=== PATIENT | female | born 1940 | race Caucasian/White ===

== ENCOUNTER 2021-06-26 17:05 | Inpatient (IN) ==
[2021-06-26] MEDS ORDERED: ALBUT/IPRATROP 3MG/0.5MG NEB 3 ML VIAL NEB ONE (17:53)
[2021-06-26] MEDS ORDERED: methylPREDNISolone 125 MG/2 ML VIAL IV STA (17:53)
--- NOTE | 2021-06-26 17:56 | Emergency Department Note ---
Impression & Plan Acute respiratory distress, Pulmonary edema, Anemia ED Provider Note NAME: CAIO LLANOS AGE: 81 SEX: F : 1940 ARRIVES VIA: Walk-In INFORMANT: Patient, ED PROVIDER(S): Ashu Price DO CHIEF COMPLAINT: Shortness of breath HPI: The patient is an 81-year-old female who presented to the emergency department for an evaluation of shortness of breath. The patient arrived with family members. Apparently the patient's been having worsening symptoms for the last 3 to 4 days. The patient has had no nausea or vomiting. The patient has had no chest pain. She did notice worsening shortness of breath especially with exertion. She denies having any orthopnea. The patient does not wear oxygen at home. She denies having any fever. She is had a dry cough. She has a history of COPD and states that she has had similar episodes in the past with COPD. The patient has not seen her family doctor for the symptoms. She states symptoms continued to worsen so she presented to the emergency department with her family member for further evaluation. The patient states that she has been pliant with all of her out patient medication. The patient was immunized against COVID-19. ROS: See above HPI for pertinent positives & negatives. A total of 10 systems reviewed and were otherwise negative. PAST MEDICAL HISTORY: See Below PAST SURGICAL HISTORY: See Below FAMILY HISTORY: See Below SOCIAL HISTORY: See Below HOME MEDICATIONS: See Below ALLERGIES: See Below VITALS: See Below PHYSICAL EXAMINATION: GENERAL: The patient is a thin alert. The patient is very anxious appearing. EYES: The conjunctivae are clear. The pupils are round and reactive. EARS, NOSE, MOUTH AND THROAT: The nose is without any evidence of any deformity. NECK: The neck is nontender and supple. RESPIRATORY: Diminished breath sounds are noted throughout. There was significant tachypnea and conversational dyspnea. CARDIOVASCULAR: Irregular heart sounds were noted. There was no evident murmur. GASTROINTESTINAL: The abdomen is soft. Abdomen is nontender. MUSCULOSKELETAL/EXTREMITIES: There is no evidence of gross deformity full range of motion is noted in the hips and shoulders. SKIN: Pedal edema was noted bilaterally. Skin was warm and dry. NEUROLOGIC: Patient is awake alert and oriented x3. MEDICAL DECISION MAKING: The patient is an 81-year-old female who presented to the emergency department for an evaluation of shortness of breath. The patient was found to have significant tachypnea as well as conversational dyspnea. She has a history of COPD. Initially she was treated with bronchodilator therapy and BiPAP. She did not tolerate BiPAP well. She was found to have significant anemia and signs of pulmonary edema on chest x-ray. She was treated with Lasix as well as blood transfusion. I did consent the patient for blood transfusion myself. I discus sed the patient's laboratory and radiographic studies with her. She was feeling much better on subsequent reevaluation. [facility] have agreed to evaluate the patient in the emergency department for further management and disposition. Triage Nursing notes reviewed. Prior medical records reviewed Vital Signs: reviewed and remarkable for tachypnea and tachycardia. Differential diagnosis: Reactive airway disease, pneumonia, pneumothorax, COPD, CHF, infections, cardiac ischemia, pulmonary embolism, musculoskeletal, gastrointestinal, as well as other pathologies. ER treatment provided: See below Diagnostics interpreted by me: ECG: EKG was obtained in the emergency department. My interpretation is atrial fibrillation at 88 bpm. There was no PVCs noted. Left bundle branch block pattern was noted. This was compared to a tracing from December 31, 1996. The atrial fibrillation as well as a left bundle were new compared to earlier tracing. Cardiac Monitoring: An order was placed for continuous cardiac monitoring. The monitor shows a rate of 92 bpm with atrial fibrillation rhythm. Laboratory studies: As stated above and show below. Imaging studies: See below Consultation(s): 1924: I discussed this case with Dr. Tanner who [facility] ED COURSE: Procedures: none PDMP:reviewed and no issues Critical Care: I have personally spent greater than 55 minutes of critical care time in the direct management of this patient. This includes bedside care, interpretation of diagnostic studies, and testing, discussion with consultants, patient, and family members, and other required patient management activities. This 55 minutes is in excess of all separately billable procedures. Past Med/Surg History Medical History Atrial fibrillation Breast cancer COPD (chronic obstructive pulmonary disease) Surgical History History of abdominal hysterectomy History of cholecystectomy History of lumbar surgery History of mastectomy Social History Smoking Status: Never smoker Preferred Language: Monegasque Feels Safe at Home: Yes Allergies Allergies Allergy/AdvReac Type Severity Reaction Status Date / Time latex Allergy Rash Verified 06/26/21 19:53 Penicillins Allergy Hives Verified 06/26/21 19:53 shellfish derived Allergy Anaphylaxis Verified 06/26/21 19:53 Sulfa (Sulfonamide Allergy Hives Verified 06/26/21 19:53 Antibiotics) SMOKE Allergy THROAT Uncoded 06/26/21 19:53 CLOSES Home Meds Home Medications Medication Instructions Recorded Confirmed acetaminophen 325 mg tablet 650 mg PO BID 06/26/21 06/26/21 (Tylenol) albuterol sulfate 2.5 mg INHALATION Q4H PRN 06/26/21 06/26/21 albuterol sulfate 90 mcg/actuation 2 puff INHALATION Q6 PRN 06/26/21 06/26/21 aerosol inhaler aspirin 81 mg tablet,delayed 81 mg PO DAILY 06/26/21 06/26/21 release calcium carbonate 600 mg(1,500 1 tab PO BID 06/26/21 06/26/21 mg)-vitamin D3 800 unit chewable tablet (Caltrate 600 plus D) cholecalciferol (vitamin D3) 50 50 mcg PO DAILY 06/26/21 06/26/21 mcg (2,000 unit) tablet (Vitamin D3) cyanocobalamin (vitamin B-12) 1,000 mcg PO DAILY 06/26/21 06/26/21 1,000 mcg tablet (Vitamin B-12) furosemide 20 mg tablet 20 mg PO BID 06/26/21 06/26/21 omeprazole 40 mg capsule,delayed 40 mg PO BID 06/26/21 06/26/21 release potassium chloride 20 mEq 20 meq PO DAILY 06/26/21 06/26/21 tablet,extended release(part/cryst) spironolactone 25 mg tablet 25 mg PO DAILY 06/26/21 06/26/21 torsemide 100 mg tablet 100 mg PO DAILY PRN 06/26/21 06/26/21 verapamil 180 mg 24 hr 180 mg PO BID 06/26/21 06/26/21 capsule,extended release warfarin 3 mg tablet 1.5 - 3 mg PO UD 06/26/21 06/26/21 Results & Data (ED) Vital Signs Vital Signs - 24 hr 06/26/21 17:26 06/26/21 18:09 06/26/21 18:10 Temperature 36.4 C L Temperature Source Temporal Artery Scan Pulse Rate 101 H 94 H Pulse Rate [Right Finger] 95 H Pulse Rate from SpO2 Sensor Respiratory Rate 36 H 31 H 31 H Respiratory Effort / Characteristics Accessory Muscle Use Labored Spontaneous Labored Short of Breath Spontaneous Labored Short of Breath Respiratory Pattern Tachypnea Blood Pressure 110/56 L Blood Pressure [Left Arm] Blood Pressure Mean 74 Blood Pressure Mean [Left Arm] Blood Pressure Position Sitting Pulse Oximetry 97 94 94 Oxygen Delivery Method Room Air BiPAP Oxygen Flow Rate Fraction of Inspired Oxygen 21 21 Sepsis Recent Fever Within 48 Hours No Sepsis New/Unexplained Change in Mental Status N/A Sepsis Action Taken by Nursing No Action Required 06/26/21 18:12 06/26/21 18:20 06/26/21 18:27 Temperature Temperature Source Pulse Rate 92 H 93 H Pulse Rate [Right Finger] 103 H Pulse Rate from SpO2 Sensor 94 H 97 H Respiratory Rate 34 H 32 H 22 Respiratory Effort / Characteristics Respiratory Pattern Blood Pressure Blood Pressure [Left Arm] 121/61 Blood Pressure Mean Blood Pressure Mean [Left Arm] 81 Blood Pressure Position Pulse Oximetry 100 100 100 Oxygen Delivery Method Nebulizer Oxygen Flow Rate Fraction of Inspired Oxygen Sepsis Recent Fever Within 48 Hours Sepsis New/Unexplained Change in Mental Status Sepsis Action Taken by Nursing 06/26/21 18:30 06/26/21 19:00 06/26/21 19:03 Temperature Temperature Source Pulse Rate 102 H 89 Pulse Rate [Right Finger] Pulse Rate from SpO2 Sensor 101 H 90 Respiratory Rate 31 H 26 H Respiratory Effort / Characteristics Respiratory Pattern Blood Pressure 129/85 136/76 Blood Pressure [Left Arm] Blood Pressure Mean 99 96 Blood Pressure Mean [Left Arm] Blood Pressure Position Pulse Oximetry 98 100 100 Oxygen Delivery Method Room Air Room Air Oxygen Flow Rate Fraction of Inspired Oxygen Sepsis Recent Fever Within 48 Hours Sepsis New/Unexplained Change in Mental Status Sepsis Action Taken by Nursing 06/26/21 19:30 06/26/21 19:53 06/26/21 20:00 Temperature Temperature Source Pulse Rate 89 86 Pulse Rate [Right Finger] Pulse Rate from SpO2 Sensor 88 88 Respiratory Rate 25 H 22 34 H Respiratory Effort / Characteristics Short of Breath Short of Breath Respiratory Pattern Blood Pressure 134/79 129/59 L Blood Pressure [Left Arm] Blood Pressure Mean 97 82 Blood Pressure Mean [Left Arm] Blood Pressure Position Pulse Oximetry 100 97 95 Oxygen Delivery Method Nasal Cannula Nasal Cannula Oxygen Flow Rate 2 2 Fraction of Inspired Oxygen Sepsis Recent Fever Within 48 Hours Sepsis New/Unexplained Change in Mental Status Sepsis Action Taken by Nursing 06/26/21 20:30 06/26/21 21:00 06/26/21 21:30 Temperature Temperature Source Pulse Rate 96 H 86 92 H Pulse Rate [Right Finger] Pulse Rate from SpO2 Sensor 95 H 85 88 Respiratory Rate 22 21 23 Respiratory Effort / Characteristics SOB on Exertion Respiratory Pattern Blood Pressure 108/59 L 125/53 L 115/51 L Blood Pressure [Left Arm] Blood Pressure Mean 75 77 72 Blood Pressure Mean [Left Arm] Blood Pressure Position Pulse Oximetry 97 95 96 Oxygen Delivery Method Nasal Cannula Oxygen Flow Rate 2 Fraction of Inspired Oxygen Sepsis Recent Fever Within 48 Hours Sepsis New/Unexplained Change in Mental Status Sepsis Action Taken by [facility] Medications Current Medication List: was personally reviewed by me Laboratory Data Attestation: I reviewed the patient's lab results. Result diagrams: 06/26/21 18:14 06/26/21 18:14 Lab Results 06/26/21 06/26/21 06/26/21 Range/Units 18:00 18:00 18:14 WBC 11.69 H (4.8-10.8) K/uL RBC 3.26 L (4.2-5.4) M/uL Hgb 6.8 L* (12.0-16.0) g/dL Hct 23.8 L (37-47) % MCV 73.0 L (80-100) fL MCH 20.9 L (25-34) pg MCHC 28.6 L (32-36) g/dL RDW Std Deviation 47.1 H (36.4-46.3) fL RDW Coeff of Valerie 17.5 H (11.5-14.5) % Plt Count 435 H (130-400) K/uL MPV 10.4 (7.4-10.4) fL Immature Gran % (Auto) 0.3 % Neut % (Auto) 77.8 % Lymph % (Auto) 10.9 % [place] % (Auto) 10.7 % Eos % (Auto) 0.1 % Baso % (Auto) 0.2 % Neut # (Auto) 9.10 H (1.4-6.5) K/uL Lymph # (Auto) 1.28 (1.2-3.4) K/uL [place] # (Auto) 1.25 H (0.11-0.59) K/uL Eos # (Auto) 0.01 (0-0.5) K/uL Baso # (Auto) 0.02 (0-0.2) K/uL Immature Gran # (Auto) 0.03 H (0.00-0.02) K/uL Polychromasia 1+ Hypochromasia Present Poikilocytosis Present PT (9.0-12.0) Seconds INR (0.9-1.1) APTT (21.0-31.0) Seconds PTT Ratio VBG pH (7.36-7.41) VBG pCO2 (38-50) mmHg VBG pO2 mmHg VBG HCO3 mmol/L VBG O2 Saturation % VBG Base Excess mEq/L Barometric Pressure mm/Hg Sodium (136-145) mmol/L Potassium (3.5-5.1) mmol/L Chloride (98-107) mmol/L Carbon Dioxide (21-32) mmol/L Anion Gap (3-11) BUN (7-18) mg/dl Creatinine (0.6-1.2) mg/dl Est Cr Clr Drug Dosing Est GFR ( Amer) ml/min Est GFR (Non-Af Amer) ml/min BUN/Creatinine Ratio (10-20) Glucose (70-99) mg/dl Lactate (0.4-2.0) mmol/L Calcium (8.5-10.1) mg/dl Magnesium (1.8-2.4) mg/dl Total Bilirubin (0.2-1) mg/dl AST (15-37) U/L ALT (12-78) U/L Alkaline Phosphatase (45-117) U/L Troponin I (0-0.045) ng/ml NT-Pro-B Natriuret Pep (0-1800) pg/ml Total Protein (6.4-8.2) gm/dl Albumin (3.4-5.0) gm/dl Globulin (2.5-4.0) gm/dl Albumin/Globulin Ratio (0.9-2) Procalcitonin (0-0.5) ng/ml Urine Color Urine Appearance (Clear) Urine pH (4.5-7.5) Ur Specific [place] (1.000-1.030) Urine Protein (Negative) Urine Glucose (UA) (Negative) Urine Ketones (Negative) Urine Blood (Negative) Urine Nitrite (Negative) Urine Bilirubin (Negative) Urine Urobilinogen (Negative) Ur Leukocyte Esterase (Negative) Urine WBC (Auto) (0-5) /hpf Urine RBC (Auto) (0-4) /hpf U Hyaline Cast (Auto) (0-5) /lpf U Epithel Cells (Auto) (0-5) /lpf Urine Bacteria (Auto) (Negative) Adenovirus (PCR) Not Detected (NotDetected) B. pertussis DNA (PCR) Not Detected (NotDetected) B.parapertussis DNA PCR Not Detected (NotDetected) C. pneumoniae DNA (PCR) Not Detected (NotDetected) Coronavirus OC43 (PCR) Not Detected (NotDetected) Coronavirus HKU1 (PCR) Not Detected (NotDetected) Coronavirus 229E (PCR) Not Detected (NotDetected) COVID-[address] Eval [address] RESPNP at [facility] SARS-CoV-2 (PCR) Not Detected (NotDetected) Coronavirus NL63 (PCR) Not Detected (NotDetected) Human Metapneumovir PCR Not Detected (NotDetected) Influenza Type A (PCR) Not Detected (NotDetected) Influenza Type B (PCR) Not Detected (NotDetected) M. pneumoniae (PCR) Not Detected (NotDetected) Parainfluenza 1 (PCR) Not Detected (NotDetected) Parainfluenza 2 (PCR) Not Detected (NotDetected) Parainfluenza 3 (PCR) Not Detected (NotDetected) Parainfluenza 4 (PCR) Not Detected (NotDetected) RSV (PCR) Not Detected (NotDetected) Entero/Rhino (PCR) Not Detected (NotDetected) Blood Type Blood Type Recheck Antibody Screen Crossmatch 06/26/21 06/26/21 06/26/21 Range/Units 18:14 18:14 18:14 WBC (4.8-10.8) K/uL RBC (4.2-5.4) M/uL Hgb (12.0-16.0) g/dL Hct (37-47) % MCV (80-100) fL MCH (25-34) pg MCHC (32-36) g/dL RDW Std Deviation (36.4-46.3) fL RDW Coeff of Valerie (11.5-14.5) % Plt Count (130-400) K/uL MPV (7.4-10.4) fL Immature Gran % (Auto) % Neut % (Auto) % Lymph % (Auto) % [place] % (Auto) % Eos % (Auto) % Baso % (Auto) % Neut # (Auto) (1.4-6.5) K/uL Lymph # (Auto) (1.2-3.4) K/uL [place] # (Auto) (0.11-0.59) K/uL Eos # (Auto) (0-0.5) K/uL Baso # (Auto) (0-0.2) K/uL Immature Gran # (Auto) (0.00-0.02) K/uL Polychromasia Hypochromasia Poikilocytosis PT 31.2 H (9.0-12.0) Seconds INR 3.4 H (0.9-1.1) APTT 41.8 H (21.0-31.0) Seconds PTT Ratio 1.6 VBG pH (7.36-7.41) VBG pCO2 (38-50) mmHg VBG pO2 mmHg VBG HCO3 mmol/L VBG O2 Saturation % VBG Base Excess mEq/L Barometric Pressure mm/Hg Sodium 130 L (136-145) mmol/L Potassium 4.9 (3.5-5.1) mmol/L Chloride 97 L (98-107) mmol/L Carbon Dioxide 25 (21-32) mmol/L Anion Gap 8.0 (3-11) BUN 15 (7-18) mg/dl Creatinine 0.97 (0.6-1.2) mg/dl Est Cr Clr Drug Dosing Not Reportable Est GFR ( Amer) 62.6 ml/min Est GFR (Non-Af Amer) 54.0 ml/min BUN/Creatinine Ratio 15.0 (10-20) Glucose 123 H (70-99) mg/dl Lactate 2.1 H* (0.4-2.0) mmol/L Calcium 8.7 (8.5-10.1) mg/dl Magnesium 2.4 (1.8-2.4) mg/dl Total Bilirubin 0.4 (0.2-1) mg/dl AST 12 L (15-37) U/L ALT 14 (12-78) U/L Alkaline Phosphatase 55 (45-117) U/L Troponin I < 0.015 (0-0.045) ng/ml NT-Pro-B Natriuret Pep 03681 H (0-1800) pg/ml Total Protein 7.0 (6.4-8.2) gm/dl Albumin 3.2 L (3.4-5.0) gm/dl Globulin 3.8 (2.5-4.0) gm/dl Albumin/Globulin Ratio 0.8 L (0.9-2) Procalcitonin (0-0.5) ng/ml Urine Color Urine Appearance (Clear) Urine pH (4.5-7.5) Ur Specific [place] (1.000-1.030) Urine Protein (Negative) Urine Glucose (UA) (Negative) Urine Ketones (Negative) Urine Blood (Negative) Urine Nitrite (Negative) Urine Bilirubin (Negative) Urine Urobilinogen (Negative) Ur Leukocyte Esterase (Negative) Urine WBC (Auto) (0-5) /hpf Urine RBC (Auto) (0-4) /hpf U Hyaline Cast (Auto) (0-5) /lpf U Epithel Cells (Auto) (0-5) /lpf Urine Bacteria (Auto) (Negative) Adenovirus (PCR) (NotDetected) B. pertussis DNA (PCR) (NotDetected) B.parapertussis DNA PCR (NotDetected) C. pneumoniae DNA (PCR) (NotDetected) Coronavirus OC43 (PCR) (NotDetected) Coronavirus HKU1 (PCR) (NotDetected) Coronavirus 229E (PCR) (NotDetected) COVID-19 Eval Order SARS-CoV-2 (PCR) (NotDetected) Coronavirus NL63 (PCR) (NotDetected) Human Metapneumovir PCR (NotDetected) Influenza Type A (PCR) (NotDetected) Influenza Type B (PCR) (NotDetected) M. pneumoniae (PCR) (NotDetected) Parainfluenza 1 (PCR) (NotDetected) Parainfluenza 2 (PCR) (NotDetected) Parainfluenza 3 (PCR) (NotDetected) Parainfluenza 4 (PCR) (NotDetected) RSV (PCR) (NotDetected) Entero/Rhino (PCR) (NotDetected) Blood Type Blood Type Recheck Antibody Screen Crossmatch 06/26/21 06/26/21 06/26/21 Range/Units 18:14 18:14 18:52 WBC (4.8-10.8) K/uL RBC (4.2-5.4) M/uL Hgb (12.0-16.0) g/dL Hct (37-47) % MCV (80-100) fL MCH (25-34) pg MCHC (32-36) g/dL RDW Std Deviation (36.4-46.3) fL RDW Coeff of Valerie (11.5-14.5) % Plt Count (130-400) K/uL MPV (7.4-10.4) fL Immature Gran % (Auto) % Neut % (Auto) % Lymph % (Auto) % [place] % (Auto) % Eos % (Auto) % Baso % (Auto) % Neut # (Auto) (1.4-6.5) K/uL Lymph # (Auto) (1.2-3.4) K/uL [place] # (Auto) (0.11-0.59) K/uL Eos # (Auto) (0-0.5) K/uL Baso # (Auto) (0-0.2) K/uL Immature Gran # (Auto) (0.00-0.02) K/uL Polychromasia Hypochromasia Poikilocytosis PT (9.0-12.0) Seconds INR (0.9-1.1) APTT (21.0-31.0) Seconds PTT Ratio VBG pH 7.37 (7.36-7.41) VBG pCO2 42 (38-50) mmHg VBG pO2 69 mmHg VBG HCO3 24 mmol/L VBG O2 Saturation 91.3 % VBG Base Excess -1.5 mEq/L Barometric Pressure 736.7 mm/Hg Sodium (136-145) mmol/L Potassium (3.5-5.1) mmol/L Chloride (98-107) mmol/L Carbon Dioxide (21-32) mmol/L Anion Gap (3-11) BUN (7-18) mg/dl Creatinine (0.6-1.2) mg/dl Est Cr Clr Drug Dosing Est GFR ( Amer) ml/min Est GFR (Non-Af Amer) ml/min BUN/Creatinine Ratio (10-20) Glucose (70-99) mg/dl Lactate (0.4-2.0) mmol/L Calcium (8.5-10.1) mg/dl Magnesium (1.8-2.4) mg/dl Total Bilirubin (0.2-1) mg/dl AST (15-37) U/L ALT (12-78) U/L Alkaline Phosphatase (45-117) U/L Troponin I (0-0.045) ng/ml NT-Pro-B Natriuret Pep (0-1800) pg/ml Total Protein (6.4-8.2) gm/dl Albumin (3.4-5.0) gm/dl Globulin (2.5-4.0) gm/dl Albumin/Globulin Ratio (0.9-2) Procalcitonin 0.07 (0-0.5) ng/ml Urine Color Urine Appearance (Clear) Urine pH (4.5-7.5) Ur Specific [place] (1.000-1.030) Urine Protein (Negative) Urine Glucose (UA) (Negative) Urine Ketones (Negative) Urine Blood (Negative) Urine Nitrite (Negative) Urine Bilirubin (Negative) Urine Urobilinogen (Negative) Ur Leukocyte Esterase (Negative) Urine WBC (Auto) (0-5) /hpf Urine RBC (Auto) (0-4) /hpf U Hyaline Cast (Auto) (0-5) /lpf U Epithel Cells (Auto) (0-5) /lpf Urine Bacteria (Auto) (Negative) Adenovirus (PCR) (NotDetected) B. pertussis DNA (PCR) (NotDetected) B.parapertussis DNA PCR (NotDetected) C. pneumoniae DNA (PCR) (NotDetected) Coronavirus OC43 (PCR) (NotDetected) Coronavirus HKU1 (PCR) (NotDetected) Coronavirus 229E (PCR) (NotDetected) COVID-19 Eval Order SARS-CoV-2 (PCR) (NotDetected) Coronavirus NL63 (PCR) (NotDetected) Human Metapneumovir PCR (NotDetected) Influenza Type A (PCR) (NotDetected) Influenza Type B (PCR) (NotDetected) M. pneumoniae (PCR) (NotDetected) Parainfluenza 1 (PCR) (NotDetected) Parainfluenza 2 (PCR) (NotDetected) Parainfluenza 3 (PCR) (NotDetected) Parainfluenza 4 (PCR) (NotDetected) RSV (PCR) (NotDetected) Entero/Rhino (PCR) (NotDetected) Blood Type O Negative Blood Type Recheck Antibody Screen NEGATIVE Crossmatch See Detail 06/26/21 06/26/21 06/26/21 Range/Units 20:08 20:14 21:30 WBC (4.8-10.8) K/uL RBC (4.2-5.4) M/uL Hgb (12.0-16.0) g/dL Hct (37-47) % MCV (80-100) fL MCH (25-34) pg MCHC (32-36) g/dL RDW Std Deviation (36.4-46.3) fL RDW Coeff of Valerie (11.5-14.5) % Plt Count (130-400) K/uL MPV (7.4-10.4) fL Immature Gran % (Auto) % Neut % (Auto) % Lymph % (Auto) % [place] % (Auto) % Eos % (Auto) % Baso % (Auto) % Neut # (Auto) (1.4-6.5) K/uL Lymph # (Auto) (1.2-3.4) K/uL [place] # (Auto) (0.11-0.59) K/uL Eos # (Auto) (0-0.5) K/uL Baso # (Auto) (0-0.2) K/uL Immature Gran # (Auto) (0.00-0.02) K/uL Polychromasia Hypochromasia Poikilocytosis PT (9.0-12.0) Seconds INR (0.9-1.1) APTT (21.0-31.0) Seconds PTT Ratio VBG pH (7.36-7.41) VBG pCO2 (38-50) mmHg VBG pO2 mmHg VBG HCO3 mmol/L VBG O2 Saturation % VBG Base Excess mEq/L Barometric Pressure mm/Hg Sodium (136-145) mmol/L Potassium (3.5-5.1) mmol/L Chloride (98-107) mmol/L Carbon Dioxide (21-32) mmol/L Anion Gap (3-11) BUN (7-18) mg/dl Creatinine (0.6-1.2) mg/dl Est Cr Clr Drug Dosing Est GFR ( Amer) ml/min Est GFR (Non-Af Amer) ml/min BUN/Creatinine Ratio (10-20) Glucose (70-99) mg/dl Lactate 1.7 (0.4-2.0) mmol/L Calcium (8.5-10.1) mg/dl Magnesium (1.8-2.4) mg/dl Total Bilirubin (0.2-1) mg/dl AST (15-37) U/L ALT (12-78) U/L Alkaline Phosphatase (45-117) U/L Troponin I (0-0.045) ng/ml NT-Pro-B Natriuret Pep (0-1800) pg/ml Total Protein (6.4-8.2) gm/dl Albumin (3.4-5.0) gm/dl Globulin (2.5-4.0) gm/dl Albumin/Globulin Ratio (0.9-2) Procalcitonin (0-0.5) ng/ml Urine Color Yellow Urine Appearance Cloudy A (Clear) Urine pH 5.5 (4.5-7.5) Ur Specific [place] 1.010 (1.000-1.030) Urine Protein Negative (Negative) Urine Glucose (UA) Negative (Negative) Urine Ketones Negative (Negative) Urine Blood Negative (Negative) Urine Nitrite Positive A (Negative) Urine Bilirubin Negative (Negative) Urine Urobilinogen Negative (Negative) Ur Leukocyte Esterase 1+ H (Negative) Urine WBC (Auto) 10-30 H (0-5) /hpf Urine RBC (Auto) 0-4 (0-4) /hpf U Hyaline Cast (Auto) 1-5 (0-5) /lpf U Epithel Cells (Auto) >30 H (0-5) /lpf Urine Bacteria (Auto) 2+ H (Negative) Adenovirus (PCR) (NotDetected) B. pertussis DNA (PCR) (NotDetected) B.parapertussis DNA PCR (NotDetected) C. pneumoniae DNA (PCR) (NotDetected) Coronavirus OC43 (PCR) (NotDetected) Coronavirus HKU1 (PCR) (NotDetected) Coronavirus 229E (PCR) (NotDetected) COVID-19 Eval Order SARS-CoV-2 (PCR) (NotDetected) Coronavirus NL63 (PCR) (NotDetected) Human Metapneumovir PCR (NotDetected) Influenza Type A (PCR) (NotDetected) Influenza Type B (PCR) (NotDetected) M. pneumoniae (PCR) (NotDetected) Parainfluenza 1 (PCR) (NotDetected) Parainfluenza 2 (PCR) (NotDetected) Parainfluenza 3 (PCR) (NotDetected) Parainfluenza 4 (PCR) (NotDetected) RSV (PCR) (NotDetected) Entero/Rhino (PCR) (NotDetected) Blood Type Blood Type Recheck O Negative Antibody Screen Crossmatch Administered Medications Discontinued Medications Albuterol (Albut/Ipratrop 3mg/0.5mg Neb 3 Ml Vial) 12 ml NEB ONE ONE Stop: 06/26/21 17:54 Last Admin: 06/26/21 18:08 Dose: 12 ml Documented by: [id number] Furosemide (Furosemide 40 Mg/4 Ml Vial) 40 mg IV NOW STA Stop: 06/26/21 19:08 Last Admin: 06/26/21 19:20 Dose: 40 mg Documented by: [id number] Methylprednisolone (Methylprednisolone 125 Mg/2 Ml Vial) 125 mg IV NOW STA Stop: 06/26/21 17:54 Last Admin: 06/26/21 19:20 Dose: 125 mg Documented by: [id number] Imaging Data Radiologist's Impression: Chest X-Ray 06/26/21 17:53 SINGLE VIEW CHEST CLINICAL HISTORY: Sepsis . FINDINGS: An AP, portable, upright chest radiograph is obtained. No prior studies are available for comparison at the time of dictation. The heart is enlarged noting atherosclerotic calcification of the thoracic aorta. There is pulmonary vascular congestion. Bilateral airspace opacities are seen throughout both lung. Small pleural effusions are suspected with bibasilar scarring/atelectasis. No pneumothorax is seen. The skeletal structures are osteopenic. The bony thorax is grossly intact. Surgical clips are noted in the right axilla. IMPRESSION: 1. Cardiomegaly with evidence of congestive failure. 2. Bilateral airspace opacities likely represent pulmonary edema. Correlate clinically for evidence of a superimposed infectious/inflammatory pneumonitis. Radiographic follow-up to resolution is recommended. 3. Suspect small pleural effusions. ACT 112: Negative or not required by law. Electronically signed by: Gregory Ramirez M.D. 06/26/2021 7:25 PM Discharge Plan Visit Data Chief Complaint: Shortness of Breath/Dyspnea Stated Complaint: SOB, CANT BREATHE ED Provider: Ashu Price Discharge Problem: Acute respiratory distress, Pulmonary edema, Anemia Patient Disposition: Being Evaluated by Hospitalist Condition: Good Forms Stand Alone Forms: My [facility] [employer] Prescriptions Prescriptions: No Action acetaminophen [Tylenol] 325 mg Tablet 650 mg PO BID RF: 0 albuterol sulfate 2.5 mg /3 mL (0.083 %) Solution For Nebulization 2.5 mg INHALATION Q4H PRN (Reason: Wheezing) RF: 0 cyanocobalamin (vitamin B-12) [Vitamin B-12] 1,000 mcg Tablet 1,000 mcg PO DAILY RF: 0 omeprazole 40 mg capsule,delayed release(DR/EC) 40 mg PO BID RF: 0 aspirin [Aspir-81] 81 mg Tablet,Delayed Release (Dr/Ec) 81 mg PO DAILY RF: 0 spironolactone 25 mg tablet 25 mg PO DAILY RF: 0 warfarin 3 mg tablet 1.5 - 3 mg PO UD RF: 0 verapamil 180 mg capsule,ext rel. pellets 24 hr 180 mg PO BID RF: 0 potassium chloride 20 mEq tablet,ER particles/crystals 20 meq PO DAILY RF: 0 torsemide 100 mg tablet 100 mg PO DAILY PRN (Reason: Fluid Retention) RF: 0 furosemide 20 mg tablet 20 mg PO BID RF: 0 albuterol sulfate 90 mcg/actuation HFA aerosol inhaler 2 puff INHALATION Q6 PRN (Reason: Shortness Of Breath Or Wheezing) RF: 0 cholecalciferol (vitamin D3) [Vitamin D3] 50 mcg (2,000 unit) Tablet 50 mcg PO DAILY RF: 0 Caltrate 600 plus D 600 mg (1,500 mg)-800 unit Tablet,Chewable 1 tab PO BID RF: 0 Referrals Referrals: PCP,NO [Physician] -
[2021-06-26] MEDS ORDERED: SODIUM CHLORIDE 0.9% 250 ML IV PRN (18:41)
[2021-06-26 18:42] LABS: Hematocrit (blood only) 23.8 % (37-47); Hemoglobin 6.8 g/dL (12.0-16.0); Mean Corpuscular Hemoglobin 20.9 pg (25-34); Mean Corpuscular Hgb Conc 28.6 g/dL (32-36); Mean Platelet Volume 10.4 fL (7.4-10.4); Platelet Count 435 K/uL (130-400); RDW Coefficient of Variation 17.5 % (11.5-14.5); RDW Standard Deviation 47.1 fL (36.4-46.3); Red Blood Count 3.26 M/uL (4.2-5.4); White Blood Count 11.69 K/uL (4.8-10.8)
[2021-06-26 18:47] LABS: Base Excess VBG -1.5 mEq/L; Oxygen Saturation VBG 91.3 %; pH VBG 7.37 (7.36-7.41)
[2021-06-26 18:54] LABS: Alanine Aminotransferase 14 U/L (12-78); Albumin Level 3.2 gm/dl (3.4-5.0); Aspartate Aminotransferase 12 U/L (15-37); Blood Urea Nitrogen 15 mg/dl (7-18); Calcium 8.7 mg/dl (8.5-10.1); Carbon Dioxide 25 mmol/L (21-32); Chloride 97 mmol/L (98-107); Est GFR (African American) 62.6 ml/min; Glucose 123 mg/dl (70-99); Magnesium 2.4 mg/dl (1.8-2.4); Potassium 4.9 mmol/L (3.5-5.1); Sodium 130 mmol/L (136-145)
[2021-06-26 18:58] LABS: INR 3.4 (0.9-1.1); Partial Thromboplastin Ratio 1.6; Partial Thromboplastin Time 41.8 Seconds (21.0-31.0); Prothrombin Time 31.2 Seconds (9.0-12.0)
[2021-06-26 18:59] LABS: Albumin Globulin Ratio 0.8 (0.9-2); Alkaline Phosphatase 55 U/L (45-117); Bilirubin,Total 0.4 mg/dl (0.2-1); Globulin 3.8 gm/dl (2.5-4.0); NT Pro B Type Natriuretic Pept 10681 pg/ml (0-1800); Troponin I < 0.015 ng/ml (0-0.045)
[2021-06-26 19:06] LABS: Basophils # (auto) 0.02 K/uL (0-0.2); Basophils % (auto) 0.2 %; Eosinophils # (auto) 0.01 K/uL (0-0.5); Eosinophils % (auto) 0.1 %; Hypochromasia Present; Immature Granulocytes # (auto) 0.03 K/uL (0.00-0.02); Immature Granulocytes % (auto) 0.3 %; Lymphocytes # (auto) 1.28 K/uL (1.2-3.4); Lymphocytes % (auto) 10.9 %; Monocytes # (auto) 1.25 K/uL (0.11-0.59); Monocytes % (auto) 10.7 %; Neutrophils % (auto) 77.8 %; Poikilocytosis Present; Polychromasia 1+
[2021-06-26] MEDS ORDERED: FUROSEMIDE 40 MG/4 ML VIAL IV STA (19:07)
[2021-06-26 19:25] LABS: Adenovirus PCR Not Detected (NotDetected); Bordetella parapertussis PCR Not Detected (NotDetected); Bordetella pertussis PCR Not Detected (NotDetected); Chlamydia pneumoniae PCR Not Detected (NotDetected); Coronavirus 229E PCR Not Detected (NotDetected); Coronavirus CoV-2 (COVID19)PCR Not Detected (NotDetected); Coronavirus HKU1 PCR Not Detected (NotDetected); Coronavirus NL63 PCR Not Detected (NotDetected); Coronavirus OC43PCR Not Detected (NotDetected); Human Metapneumovirus PCR Not Detected (NotDetected); Influenza A PCR Not Detected (NotDetected); Influenza B PCR Not Detected (NotDetected); Mycoplasma pneumoniae PCR Not Detected (NotDetected); Parainfluenza Virus 1 PCR Not Detected (NotDetected); Parainfluenza Virus 2 PCR Not Detected (NotDetected); Parainfluenza Virus 3 PCR Not Detected (NotDetected); Parainfluenza Virus 4 PCR Not Detected (NotDetected); Respiratory Syncytial VirusPCR Not Detected (NotDetected); Rhinovirus/Enterovirus PCR Not Detected (NotDetected)
--- NOTE | 2021-06-26 19:27 | XRay Report ---
SINGLE VIEW CHEST CLINICAL HISTORY: Sepsis . FINDINGS: An AP, portable, upright chest radiograph is obtained. No prior studies are available for c omparison at the time of dictation. The heart is enlarged noting atherosclerotic calcification of th e thoracic aorta. There is pulmonary vascular congestion. Bilateral airspace opacities are seen throu ghout both lung. Small pleural effusions are suspected with bibasilar scarring/atelectasis. No pneumo thorax is seen. The skeletal structures are osteopenic. The bony thorax is grossly intact. Surgical c lips are noted in the right axilla. IMPRESSION: 1. Cardiomegaly with evidence of congestive failure. 2. Bilateral airspace opacities likely represent pulmonary edema. Correlate clinically for evidence o f a superimposed infectious/inflammatory pneumonitis. Radiographic follow-up to resolution is recomme nded. 3. Suspect small pleural effusions. ACT 112: Negative or not required by law. Electronically signed by: Gregory Ramirez M.D. 06/26/2021 7:25 PM
[2021-06-26 21:45] LABS: Appearance Urine Cloudy (Clear); Bacteria Urine Automated 2+ (Negative); Bilirubin Urine Negative (Negative); Blood Urine Negative (Negative); Color Urine Yellow; Epithelial Cell Urine Auto >30 /lpf (0-5); Glucose Urine UA Negative (Negative); Ketones Urine Negative (Negative); Leukocyte Esterase Urine 1+ (Negative); Nitrite Urine Positive (Negative); Protein Urine Negative (Negative); RBC Urine Automated 0-4 /hpf (0-4); Urobilinogen Urine Negative (Negative); pH Urine 5.5 (4.5-7.5)
[2021-06-26] MEDS ORDERED: FUROSEMIDE 40 MG/4 ML VIAL IV SCH (22:00)
[2021-06-26] MEDS ORDERED: ALBUT/IPRATROP 3MG/0.5MG NEB 3 ML VIAL NEB STA (22:29)
--- NOTE | 2021-06-27 01:01 | History and Physical Report ---
DATE OF ADMISSION: 06/26/2021. CHIEF COMPLAINT: Shortness of breath. 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 The patient lives with her daughter, ambulates okay with a cane. Has orthopnea present. She uses pillows. Since last Wednesday she is getting short of breath and today it got progressively worse, that is the reason she came in here. She is somewhat tachypneic, having dry cough for several days, not bringing up any phlegm. Denies any chest pain, no fevers, no headache, no blurred visions, no earache, no runny nose, no sore throat, no dysphagia. Appetite is okay. No nausea, no abdominal pain. Normal bowel and bladder movements. Denies any blood in the stools or black stools. Denies any hematuria. She has lower extremity edema, the patient thinks her edema is better than before. Currently, she is saturating at 95% on 2 liters. Her hemoglobin came back at 6.8. The patient is on Coumadin and INR is 3.4, but the patient denies any obvious bleeding. Her BNP is 1681. Chest x-ray shows no evidence of CHF. ALLERGIES: LATEX, PENICILLIN, SHELLFISH, SULFA ANTIBIOTICS, SMOKE. PAST MEDICAL HISTORY: As mentioned above. PAST SURGICAL HISTORY: Colonoscopy with resection of polyps, EGDs, left saphenous vein ablation, laparoscopic cholecystectomy, removal of modified radical breast for right breast cancer in 1991, lumbar disk excision in [place] in 1984, spinal fusion surgery in 1984. MEDICATIONS: The patient is on Tylenol 650 mg p.o. b.i.d., albuterol 2.5 mg inhalation q. 4 hours p.r.n., albuterol 2 puffs inhalation q. 6 hours p.r.n., aspirin 81 mg p.o. daily, Caltrate 600 plus D one tablet p.o. b.i.d., vitamin D 50 mcg p.o. daily, vitamin B12 1000 mcg p.o. daily, furosemide 20 mg p.o. b.i.d., omeprazole 40 mg p.o. b.i.d., potassium chloride 20 mEq p.o. daily, spironolactone 25 mg p.o. daily, torsemide 100 mg p.o. daily p.r.n., verapamil 180 mg p.o. b.i.d., warfarin 1.5 to 3 mg as directed. FAMILY HISTORY: Significant for no family history on file. SOCIAL HISTORY: No smoking, no alcohol, no drug use. REVIEW OF SYSTEMS: As per HPI. Rest of the review of systems is negative. PHYSICAL EXAMINATION: GENERAL: The patient is obese, not in acute distress. VITAL SIGNS: Temperature 36.4, pulse 86, respiratory rate 21, blood pressure 125/53, respiratory rate somewhat in 30s improved to 20s, blood pressure 125/53, oxygen 95% on 2 liters. HEENT: Pupils equal, round and reactive to light. Oral mucosa moist. NECK: No JVD, no neck masses. CARDIOVASCULAR: S1 and S2 heard. Gallop present. No murmurs appreciated. RESPIRATORY SYSTEM: Normal AP diameter. Somewhat tachypneic. Bilateral diminished breath sounds. No obvious wheezing. Mild bibasilar crackles. ABDOMEN: Soft, bowel sounds present, nontender, nondistended. CENTRAL NERVOUS SYSTEM: Cranial nerves II-XII grossly intact, nonfocal. EXTREMITIES: Bilateral lower extremity, +2 edema present, no erythema seen. LABORATORY DATA: WBC 11.6, hemoglobin 6.8, hematocrit 23.8, platelets 435. PT 31.2, INR 3.4, APTT 41.8. Venous blood gas, pH of 7.37, pCO2 of 42, pO2 of 69, bicarbonate 24, Sodium 130, potassium 4.9, chloride 97, bicarbonate 25, BUN 15, creatinine 0.9, serum glucose 123, lactate 1.7, calcium 8.7, magnesium 2.4, total bilirubin 0.4, AST 12, ALT 14, alkaline phosphatase 55. Troponin I less than 0.015. BNP 72039. Procalcitonin 0.07. IMAGING DATA: Chest x-ray, cardiomegaly with evidence of CHF, bilateral airspace opacities, likely representing pulmonary edema. Correlate clinically for evidence of superimposed infectious, inflammatory pneumonitis. Suspect small pleural effusions. EKG: Atrial fibrillation at a rate of 88, left bundle-branch block. ASSESSMENT AND PLAN: This is an 81-year-old female who presents with shortness of breath. 1. Shortness of breath: Most likely secondary to [id number] systolic and diastolic congestive heart failure. The patient has EF of 50% and also the patient has non-rheumatic tricuspid valve insufficiency. We will hold her home Lasix and continue home spironolactone. Received 40mg of iv Lasix in the ER. Will continue with 40mg b.i.d. of iv Lasix. Echocardiogram, daily weights, I's and O's. Closely monitor in the tele floor. Consult cardiology in the a.m. 2. Anemia: The patient is on Coumadin. INR 3.4. The patient has no obvious signs of bleeding. Anemia could be contributing towards her shortness of breath. Will transfuse 2-3 units of PRBCs and follow H and H q. 6 hours. INR is 3.4. Will Give vitamin K. We will keep her n.p.o. and consult GI in the a.m. 3. History of mild chronic obstructive pulmonary disease: No obvious wheezing, but continue with nebs around the clock and p.r.n. ER is placing her on BiPAP. Will continue BiPAP for tonight and monitor. 4. 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 5. Chronic kidney disease stage III: Creatinine 0.9. Will follow the repeat labs with the patient getting IV Lasix. 6. History of left bundle-branch block. 7. History of atrial fibrillation, persistent: Continue her home medication of verapamil 180 mg b.i.d., holding Coumadin. Restart Coumadin as soon as possible. 8. Possible uti. Will follow cultures. Iv rocephin 9. Deep venous thrombosis prophylaxis: Will place on sequential compression devices. DISPOSITION: Closely monitor in the tele floor. Level 1 full code only if there is chance of recovery. PT, OT prior to discharge. Social service to help with discharge planning. Job ID: [id number]
[2021-06-27] MEDS ORDERED: ALBUTEROL HFA 8 GM INHALER INH PRN (01:03)
[2021-06-27] MEDS ORDERED: ACETAMINOPHEN 325 MG TAB PO PRN (01:03)
[2021-06-27] MEDS ORDERED: ONDANSETRON INJ 2 MG/ML 2 ML VIAL IV PRN (01:03)
[2021-06-27] MEDS ORDERED: NITROGLYCERIN SL 0.4 MG/TAB TAB SL PRN (01:03)
[2021-06-27] MEDS ORDERED: SODIUM CHLORIDE 0.9% 250 ML IV PRN (01:03)
[2021-06-27] MEDS ORDERED: PHYTONADIONE 5 MG in SODIUM CHLORIDE 0.9% 50 ML IV ONE ×3 (01:15→12:30)
[2021-06-27] MEDS: VERAPAMIL HCL 180 MG TABCR PO SCH ×3 (01:45→20:50)
[2021-06-27] MEDS: ACETAMINOPHEN 325 MG TAB PO SCH ×3 (01:45→20:49)
[2021-06-27] MEDS: DOXYCYCLINE HYCLATE 100 MG CAP PO SCH ×3 (01:45→20:49)
[2021-06-27] MEDS: IPRATROPIUM BROMIDE NEB SOLN 0.02% 2.5 ML VIAL INH SCH ×2 (01:56→08:25)
[2021-06-27] MEDS: LEVALBUTEROL 1.25MG/0.5ML NEB INH SCH ×2 (01:58→08:25)
[2021-06-27 05:17] LABS: Hematocrit (blood only) 25.2 % (37-47); Hemoglobin 7.4 g/dL (12.0-16.0); Immature Granulocytes # (auto) 0.04 K/uL (0.00-0.02); Immature Granulocytes % (auto) 0.6 %; Lymphocytes # (auto) 0.25 K/uL (1.2-3.4); Lymphocytes % (auto) 3.8 %; Mean Corpuscular Hemoglobin 22.1 pg (25-34); Mean Corpuscular Hgb Conc 29.4 g/dL (32-36); Mean Corpuscular Volume 75.2 fL (80-100); Mean Platelet Volume 10.1 fL (7.4-10.4); Monocytes # (auto) 0.06 K/uL (0.11-0.59); Monocytes % (auto) 0.9 %; Neutrophils # (auto) 6.19 K/uL (1.4-6.5); Neutrophils % (auto) 94.7 %; Nucleated RBC # (auto) 0.03 K/uL (0-0); Nucleated RBC % (auto) 0.4 %; Platelet Count 350 K/uL (130-400); RDW Coefficient of Variation 18.5 % (11.5-14.5); Red Blood Count 3.35 M/uL (4.2-5.4); White Blood Count 6.54 K/uL (4.8-10.8)
[2021-06-27 05:34] LABS: INR 3.6 (0.9-1.1); Prothrombin Time 32.7 Seconds (9.0-12.0)
[2021-06-27 05:35] LABS: BUN Creatinine Ratio 17.5 (10-20); Calcium 7.7 mg/dl (8.5-10.1); Creatinine Clr Calc Pharmacy 46.3 ml/min; Est GFR (African American) 70.4 ml/min; Est GFR (Non-African American) 60.8 ml/min; Magnesium 2.2 mg/dl (1.8-2.4); Potassium 4.6 mmol/L (3.5-5.1)
[2021-06-27 06:19] LABS: Hypochromasia Present; Ovalocytes 1+; Polychromasia 1+
--- NOTE | 2021-06-27 07:32 | Cardiology Consultation ---
Date of Consultation June 27, 2021 Assessment & Plan (1) Acute on chronic combined systolic and diastolic congestive heart failure: Patient remains hypervolemic on exam. Responding well IV Lasix. Sodium was 128 this morning, previously 130. Echo results pending. Previous echo in 2019 sh owed a EF of 50 to 54%. Normally maintained on furosemide 20 mg twice daily and spironolactone 25 mg daily 1. For now continue Lasix 40 mg twice daily, repeat BMP this afternoon to reassess sodium level. 2. For now continue spironolactone 25 mg daily 3. 2g sodium diet restriction with 1500 mL fluid restriction 4. Strict I&O's (2) Anemia: Significant anemia upon admission with a hemoglobin of 6.8, PRBCs were transfused. Hemoglobin this morning 7.4. INR supratherapeutic at 3.6 spite receiving vitamin K. Unknown cause of anemia. Significant anemia could be a driving factor for shortness of breath and CHF exacerbation. 1. GI consult already on board 2. Will defer to hospitalist team for workup. (3) Hypertensive heart disease: Blood pressures well controlled. No medication changes at this time. (4) Valvular heart disease: Moderate mitral regurgitation and mild tricuspid regurgitation per echo in 2019. 1. Echo results pending (5) Atrial fibrillation, permanent: Ventricular rate is well controlled averaging between 70 and 90 bpm overnight. Patient asymptomatic. No medication changes at this time. 1. Continue verapamil 180 mg twice daily 2. INR supratherapeutic-patient was given vitamin K per hospital team will defer further care to hospitalist (6) Pulmonary HTN: Moderate pulmonary hypertension per echo in 2019 1. Update resting echocardiogram pending Supervising Physician Co-Signing Physician Notes Patient seen and examined with BLANCA Braxton. Agree with findings and assessment as above. Patient presents with high-output cardiac failure secondary to significant anemia. Recommend maintaining hemoglobin greater than 9. We will continue diuresis and follow volume status clinically History of Present Illness Reason for Consultation: Shortness of breath Requesting Physician: [facility] Attending Physician: Myranda Baker MD History of Present Illness Patient is a 81-year-old female who initially presented to the emergency department last evening for complaints of shortness of breath x1-2 weeks. Patient was found to be hypervolemic was started on IV Lasix, she received 40 mg in the emergency department. Echocardiogram was obtained, results pending. Patient was also found to be anemic with no obvious signs of bleeding. Hemoglobin was 6.8, patient received 1 units of PRBC over night. She has a history of persistent atrial fibrillation and is on chronic Coumadin. INR supratherapeutic at 3.4. Patient was given vitamin K. Currently being treated with IV Lasix 40 mg twice daily. Also remains on spironolactone 25 mg daily. Upon presentation to the room patient sitting up in the chair at the side of the bed drinking water. She notes that she is feeling significantly improved compared to yesterday. States that her shortness of breath remains all of her prior to coming to the hospital she was unable to walk more than 3 steps without having to stop and catch her breath. She is now able to ambulate to the restroom without difficulty. Overnight she slept with her head of bed inclined at about 25 degrees. She notes that previously, before coming to the hospital, she had to sit up straight at 90 degrees and occasionally needed to put herself in a tripod position. Normally she sleeps relatively flat in bed. Notes that she is compliant with her diuretics however she did miss a dose last week due to traveling, she took her dose of Lasix the following day. Lower extremity edema remains however she states that it is close to her baseline now. No chest pain, palpitations, dizziness, syncope or near syncope. Denies any acute bleeding including blood in the urine, stool, or nosebleeds. Tele: Atrial fibrillation averaging between 70 and 90 bpm I&O: -519.5 mL, weight 86.6 Labs this morning showed: hemoglobin of 7.4, previously 6.8. INR 3.6 Sodium of 128, potassium 4.6, creatinine 0.88 proBNP 10,681 Problem list: Persistent atrial fibrillation Hypertensive heart disease with systolic heart failure, LVEF resolved 50-54% per echo 02/2019 CKD stage III LBBB Moderate mitral regurg, echo 2018 Mild Tricuspid regurg Moderate Pulmonary hypertension Dyslipidemia, LDL goal below 100 COPD Allergies Allergy/AdvReac Type Severity Reaction Status Date / Time latex Allergy Rash Verified 06/26/21 19:53 Penicillins Allergy Hives Verified 06/26/21 19:53 shellfish derived Allergy Anaphylaxis Verified 06/26/21 19:53 Sulfa (Sulfonamide Allergy Hives Verified 06/26/21 19:53 Antibiotics) SMOKE Allergy THROAT Uncoded 06/26/21 19:53 CLOSES Home Medications Medication Instructions Recorded Confirmed Type acetaminophen 325 mg tablet 650 mg PO BID 06/26/21 06/26/21 History (Tylenol) albuterol sulfate 2.5 mg INHALATION Q4H PRN 06/26/21 06/26/21 History albuterol sulfate 90 mcg/actuation 2 puff INHALATION Q6 PRN 06/26/21 06/26/21 History aerosol inhaler aspirin 81 mg tablet,delayed 81 mg PO DAILY 06/26/21 06/26/21 History release calcium carbonate 600 mg(1,500 1 tab PO BID 06/26/21 06/26/21 History mg)-vitamin D3 800 unit chewable tablet (Caltrate 600 plus D) cholecalciferol (vitamin D3) 50 50 mcg PO DAILY 06/26/21 06/26/21 History mcg (2,000 unit) tablet (Vitamin D3) cyanocobalamin (vitamin B-12) 1,000 mcg PO DAILY 06/26/21 06/26/21 History 1,000 mcg tablet (Vitamin B-12) furosemide 20 mg tablet 20 mg PO BID 06/26/21 06/26/21 History omeprazole 40 mg capsule,delayed 40 mg PO BID 06/26/21 06/26/21 History release potassium chloride 20 mEq 20 meq PO DAILY 06/26/21 06/26/21 History tablet,extended release(part/cryst) spironolactone 25 mg tablet 25 mg PO DAILY 06/26/21 06/26/21 History torsemide 100 mg tablet 100 mg PO DAILY PRN 06/26/21 06/26/21 History verapamil 180 mg 24 hr 180 mg PO BID 06/26/21 06/26/21 History capsule,extended release warfarin 3 mg tablet 1.5 - 3 mg PO UD 06/26/21 06/26/21 History Patient History Medical History Atrial fibrillation Breast cancer COPD (chronic obstructive pulmonary disease) Surgical History History of abdominal hysterectomy History of cholecystectomy History of lumbar surgery History of mastectomy Social History Smoking Status: Former smoker Second Hand Exposure: No; Do You Dip or Chew Tobacco: No; Tobacco Cessation Education Requested by Patient: No Hx Alcohol Use: No Hx Substance Use: No Preferred Language: Polish Communication Ability: Effective Hot Dog Vender Required: No Beliefs That Will Affect Care: None Current Living Situation: Alone Other Information That Helps Us Care for You: No Feels Safe at Home: Yes Assistive Devices: Cane Review of Systems Review of Systems: All systems reviewed & are unremarkable except as noted in HPI & below Physical Exam Physical Exam: General: No acute distress. A+Ox3. HEENT: Normocephalic. Atraumatic. Conjunctiva and sclera clear. NECK: No carotid bruits. +JVD. Carotid upstrokes are brisk. Heart: RRR. S1 and S2 noted without murmur, rubs, gallops. PMI non displaced. Lungs: Diminished lung sounds bilaterally. + Crackles + intermittent expiratory wheeze Abdomen: Normal bowel sounds. Soft/obese. Nontender. Extremities: +1 BL lower extremity pitting edema. Pulses: radial=2/4, posterior tibial=2/4, dorsalis pedis = 2/4. NEURO: No focal deficits. PSYCH: Normal. Results & Data ([facility]) Vital Signs (Past 12 Hours) Vital Signs Temp Pulse Pulse Resp BP BP Pulse Ox 06/27/21 02:41 91 H 26 H 108/53 L 97 06/27/21 02:26 90 27 H 106/59 L 95 06/27/21 02:00 93 H 22 100 06/27/21 01:59 90 20 93 06/27/21 01:45 94 H 23 96 06/27/21 01:43 95 H 25 H 96 06/27/21 01:34 37 C 90 22 153/83 H 94 06/27/21 01:26 90 23 142/100 H 96 06/27/21 01:12 83 21 153/82 H 91 06/27/21 00:46 87 11 L 06/27/21 00:33 36.8 C 90 22 126/80 96 06/27/21 00:05 36.8 C 92 H 22 128/75 98 06/27/21 00:04 36.8 C 83 22 128/75 95 06/27/21 00:00 90 21 137/57 L 97 06/26/21 23:50 37 C 92 H 19 131/70 96 06/26/21 23:45 36.8 C 93 H 18 137/69 97 06/26/21 23:30 96 H 23 137/69 97 06/26/21 23:00 99 H 22 123/67 94 06/26/21 22:30 93 H 22 132/53 L 99 06/26/21 22:00 94 H 22 138/61 96 06/26/21 21:30 92 H 23 115/51 L 96 06/26/21 21:00 86 21 125/53 L 95 06/26/21 20:30 96 H 22 108/59 L 97 06/26/21 20:00 86 34 H 129/59 L 95 06/26/21 19:53 22 97 Laboratory Results 06/27/21 06/27/21 06/27/21 Range/Units 05:03 05:03 05:03 WBC 6.54 (4.8-10.8) K/uL RBC 3.35 L (4.2-5.4) M/uL Hgb 7.4 L (12.0-16.0) g/dL Hct 25.2 L (37-47) % MCV 75.2 L (80-100) fL MCH 22.1 L (25-34) pg MCHC 29.4 L (32-36) g/dL RDW Std Deviation 51.0 H (36.4-46.3) fL RDW Coeff of Valerie 18.5 H (11.5-14.5) % Plt Count 350 (130-400) K/uL MPV 10.1 (7.4-10.4) fL Immature Gran % (Auto) 0.6 % Neut % (Auto) 94.7 % Lymph % (Auto) 3.8 % Hays % (Auto) 0.9 % Eos % (Auto) 0.0 % Baso % (Auto) 0.0 % Neut # (Auto) 6.19 (1.4-6.5) K/uL Lymph # (Auto) 0.25 L (1.2-3.4) K/uL Hays # (Auto) 0.06 L (0.11-0.59) K/uL Eos # (Auto) 0.00 (0-0.5) K/uL Baso # (Auto) 0.00 (0-0.2) K/uL Immature Gran # (Auto) 0.04 H (0.00-0.02) K/uL Absolute Nucleated RBC 0.03 H (0-0) K/uL Nucleated RBC % (auto) 0.4 % Polychromasia 1+ Hypochromasia Present Poikilocytosis Ovalocytes 1+ PT 32.7 H (9.0-12.0) Seconds INR 3.6 H (0.9-1.1) APTT (21.0-31.0) Seconds PTT Ratio VBG pH (7.36-7.41) VBG pCO2 (38-50) mmHg VBG pO2 mmHg VBG HCO3 mmol/L VBG O2 Saturation % VBG Base Excess mEq/L Barometric Pressure mm/Hg Sodium 128 L (136-145) mmol/L Potassium 4.6 (3.5-5.1) mmol/L Chloride 97 L (98-107) mmol/L Carbon Dioxide 26 (21-32) mmol/L Anion Gap 5.0 (3-11) BUN 15 (7-18) mg/dl Creatinine 0.88 (0.6-1.2) mg/dl Est Cr Clr Drug Dosing 46.3 Est GFR ( Amer) 70.4 ml/min Est GFR (Non-Af Amer) 60.8 ml/min BUN/Creatinine Ratio 17.5 (10-20) Glucose 139 H (70-99) mg/dl Lactate (0.4-2.0) mmol/L Calcium 7.7 L (8.5-10.1) mg/dl Magnesium 2.2 (1.8-2.4) mg/dl Total Bilirubin (0.2-1) mg/dl AST (15-37) U/L ALT (12-78) U/L Alkaline Phosphatase (45-117) U/L Troponin I (0-0.045) ng/ml NT-Pro-B Natriuret Pep (0-1800) pg/ml Total Protein (6.4-8.2) gm/dl Albumin (3.4-5.0) gm/dl Globulin (2.5-4.0) gm/dl Albumin/Globulin Ratio (0.9-2) Procalcitonin (0-0.5) ng/ml Urine Color Urine Appearance (Clear) Urine pH (4.5-7.5) Ur Specific Costa (1.000-1.030) Urine Protein (Negative) Urine Glucose (UA) (Negative) Urine Ketones (Negative) Urine Blood (Negative) Urine Nitrite (Negative) Urine Bilirubin (Negative) Urine Urobilinogen (Negative) Ur Leukocyte Esterase (Negative) Urine WBC (Auto) (0-5) /hpf Urine RBC (Auto) (0-4) /hpf U Hyaline Cast (Auto) (0-5) /lpf U Epithel Cells (Auto) (0-5) /lpf Urine Bacteria (Auto) (Negative) Adenovirus (PCR) (NotDetected) B. pertussis DNA (PCR) (NotDetected) B.parapertussis DNA PCR (NotDetected) C. pneumoniae DNA (PCR) (NotDetected) Coronavirus OC43 (PCR) (NotDetected) Coronavirus HKU1 (PCR) (NotDetected) Coronavirus 229E (PCR) (NotDetected) COVID-19 Eval Order SARS-CoV-2 (PCR) (NotDetected) Coronavirus NL63 (PCR) (NotDetected) Human Metapneumovir PCR (NotDetected) Influenza Type A (PCR) (NotDetected) Influenza Type B (PCR) (NotDetected) M. pneumoniae (PCR) (NotDetected) Parainfluenza 1 (PCR) (NotDetected) Parainfluenza 2 (PCR) (NotDetected) Parainfluenza 3 (PCR) (NotDetected) Parainfluenza 4 (PCR) (NotDetected) RSV (PCR) (NotDetected) Entero/Rhino (PCR) (NotDetected) Blood Type Blood Type Recheck Antibody Screen Crossmatch 06/26/21 06/26/21 06/26/21 Range/Units 21:30 20:14 20:08 WBC (4.8-10.8) K/uL RBC (4.2-5.4) M/uL Hgb (12.0-16.0) g/dL Hct (37-47) % MCV (80-100) fL MCH (25-34) pg MCHC (32-36) g/dL RDW Std Deviation (36.4-46.3) fL RDW Coeff of Valerie (11.5-14.5) % Plt Count (130-400) K/uL MPV (7.4-10.4) fL Immature Gran % (Auto) % Neut % (Auto) % Lymph % (Auto) % Hays % (Auto) % Eos % (Auto) % Baso % (Auto) % Neut # (Auto) (1.4-6.5) K/uL Lymph # (Auto) (1.2-3.4) K/uL Hays # (Auto) (0.11-0.59) K/uL Eos # (Auto) (0-0.5) K/uL Baso # (Auto) (0-0.2) K/uL Immature Gran # (Auto) (0.00-0.02) K/uL Absolute Nucleated RBC (0-0) K/uL Nucleated RBC % (auto) % Polychromasia Hypochromasia Poikilocytosis Ovalocytes PT (9.0-12.0) Seconds INR (0.9-1.1) APTT (21.0-31.0) Seconds PTT Ratio VBG pH (7.36-7.41) VBG pCO2 (38-50) mmHg VBG pO2 mmHg VBG HCO3 mmol/L VBG O2 Saturation % VBG Base Excess mEq/L Barometric Pressure mm/Hg Sodium (136-145) mmol/L Potassium (3.5-5.1) mmol/L Chloride (98-107) mmol/L Carbon Dioxide (21-32) mmol/L Anion Gap (3-11) BUN (7-18) mg/dl Creatinine (0.6-1.2) mg/dl Est Cr Clr Drug Dosing Est GFR ( Amer) ml/min Est GFR (Non-Af Amer) ml/min BUN/Creatinine Ratio (10-20) Glucose (70-99) mg/dl Lactate 1.7 (0.4-2.0) mmol/L Calcium (8.5-10.1) mg/dl Magnesium (1.8-2.4) mg/dl Total Bilirubin (0.2-1) mg/dl AST (15-37) U/L ALT (12-78) U/L Alkaline Phosphatase (45-117) U/L Troponin I (0-0.045) ng/ml NT-Pro-B Natriuret Pep (0-1800) pg/ml Total Protein (6.4-8.2) gm/dl Albumin (3.4-5.0) gm/dl Globulin (2.5-4.0) gm/dl Albumin/Globulin Ratio (0.9-2) Procalcitonin (0-0.5) ng/ml Urine Color Yellow Urine Appearance Cloudy A (Clear) Urine pH 5.5 (4.5-7.5) Ur Specific Costa 1.010 (1.000-1.030) Urine Protein Negative (Negative) Urine Glucose (UA) Negative (Negative) Urine Ketones Negative (Negative) Urine Blood Negative (Negative) Urine Nitrite Positive A (Negative) Urine Bilirubin Negative (Negative) Urine Urobilinogen Negative (Negative) Ur Leukocyte Esterase 1+ H (Negative) Urine WBC (Auto) 10-30 H (0-5) /hpf Urine RBC (Auto) 0-4 (0-4) /hpf U Hyaline Cast (Auto) 1-5 (0-5) /lpf U Epithel Cells (Auto) >30 H (0-5) /lpf Urine Bacteria (Auto) 2+ H (Negative) Adenovirus (PCR) (NotDetected) B. pertussis DNA (PCR) (NotDetected) B.parapertussis DNA PCR (NotDetected) C. pneumoniae DNA (PCR) (NotDetected) Coronavirus OC43 (PCR) (NotDetected) Coronavirus HKU1 (PCR) (NotDetected) Coronavirus 229E (PCR) (NotDetected) COVID-19 Eval Order SARS-CoV-2 (PCR) (NotDetected) Coronavirus NL63 (PCR) (NotDetected) Human Metapneumovir PCR (NotDetected) Influenza Type A (PCR) (NotDetected) Influenza Type B (PCR) (NotDetected) M. pneumoniae (PCR) (NotDetected) Parainfluenza 1 (PCR) (NotDetected) Parainfluenza 2 (PCR) (NotDetected) Parainfluenza 3 (PCR) (NotDetected) Parainfluenza 4 (PCR) (NotDetected) RSV (PCR) (NotDetected) Entero/Rhino (PCR) (NotDetected) Blood Type Blood Type Recheck O Negative Antibody Screen Crossmatch 06/26/21 06/26/21 06/26/21 Range/Units 18:52 18:14 18:14 WBC (4.8-10.8) K/uL RBC (4.2-5.4) M/uL Hgb (12.0-16.0) g/dL Hct (37-47) % MCV (80-100) fL MCH (25-34) pg MCHC (32-36) g/dL RDW Std Deviation (36.4-46.3) fL RDW Coeff of Valerie (11.5-14.5) % Plt Count (130-400) K/uL MPV (7.4-10.4) fL Immature Gran % (Auto) % Neut % (Auto) % Lymph % (Auto) % Hays % (Auto) % Eos % (Auto) % Baso % (Auto) % Neut # (Auto) (1.4-6.5) K/uL Lymph # (Auto) (1.2-3.4) K/uL Hays # (Auto) (0.11-0.59) K/uL Eos # (Auto) (0-0.5) K/uL Baso # (Auto) (0-0.2) K/uL Immature Gran # (Auto) (0.00-0.02) K/uL Absolute Nucleated RBC (0-0) K/uL Nucleated RBC % (auto) % Polychromasia Hypochromasia Poikilocytosis Ovalocytes PT (9.0-12.0) Seconds INR (0.9-1.1) APTT (21.0-31.0) Seconds PTT Ratio VBG pH 7.37 (7.36-7.41) VBG pCO2 42 (38-50) mmHg VBG pO2 69 mmHg VBG HCO3 24 mmol/L VBG O2 Saturation 91.3 % VBG Base Excess -1.5 mEq/L Barometric Pressure 736.7 mm/Hg Sodium (136-145) mmol/L Potassium (3.5-5.1) mmol/L Chloride (98-107) mmol/L Carbon Dioxide (21-32) mmol/L Anion Gap (3-11) BUN (7-18) mg/dl Creatinine (0.6-1.2) mg/dl Est Cr Clr Drug Dosing Est GFR ( Amer) ml/min Est GFR (Non-Af Amer) ml/min BUN/Creatinine Ratio (10-20) Glucose (70-99) mg/dl Lactate (0.4-2.0) mmol/L Calcium (8.5-10.1) mg/dl Magnesium (1.8-2.4) mg/dl Total Bilirubin (0.2-1) mg/dl AST (15-37) U/L ALT (12-78) U/L Alkaline Phosphatase (45-117) U/L Troponin I (0-0.045) ng/ml NT-Pro-B Natriuret Pep (0-1800) pg/ml Total Protein (6.4-8.2) gm/dl Albumin (3.4-5.0) gm/dl Globulin (2.5-4.0) gm/dl Albumin/Globulin Ratio (0.9-2) Procalcitonin 0.07 (0-0.5) ng/ml Urine Color Urine Appearance (Clear) Urine pH (4.5-7.5) Ur Specific Costa (1.000-1.030) Urine Protein (Negative) Urine Glucose (UA) (Negative) Urine Ketones (Negative) Urine Blood (Negative) Urine Nitrite (Negative) Urine Bilirubin (Negative) Urine Urobilinogen (Negative) Ur Leukocyte Esterase (Negative) Urine WBC (Auto) (0-5) /hpf Urine RBC (Auto) (0-4) /hpf U Hyaline Cast (Auto) (0-5) /lpf U Epithel Cells (Auto) (0-5) /lpf Urine Bacteria (Auto) (Negative) Adenovirus (PCR) (NotDetected) B. pertussis DNA (PCR) (NotDetected) B.parapertussis DNA PCR (NotDetected) C. pneumoniae DNA (PCR) (NotDetected) Coronavirus OC43 (PCR) (NotDetected) Coronavirus HKU1 (PCR) (NotDetected) Coronavirus 229E (PCR) (NotDetected) COVID-19 Eval Order SARS-CoV-2 (PCR) (NotDetected) Coronavirus NL63 (PCR) (NotDetected) Human Metapneumovir PCR (NotDetected) Influenza Type A (PCR) (NotDetected) Influenza Type B (PCR) (NotDetected) M. pneumoniae (PCR) (NotDetected) Parainfluenza 1 (PCR) (NotDetected) Parainfluenza 2 (PCR) (NotDetected) Parainfluenza 3 (PCR) (NotDetected) Parainfluenza 4 (PCR) (NotDetected) RSV (PCR) (NotDetected) Entero/Rhino (PCR) (NotDetected) Blood Type O Negative Blood Type Recheck Antibody Screen NEGATIVE Crossmatch See Detail 06/26/21 06/26/21 06/26/21 Range/Units 18:14 18:14 18:14 WBC (4.8-10.8) K/uL RBC (4.2-5.4) M/uL Hgb (12.0-16.0) g/dL Hct (37-47) % MCV (80-100) fL MCH (25-34) pg MCHC (32-36) g/dL RDW Std Deviation (36.4-46.3) fL RDW Coeff of Valerie (11.5-14.5) % Plt Count (130-400) K/uL MPV (7.4-10.4) fL Immature Gran % (Auto) % Neut % (Auto) % Lymph % (Auto) % Hays % (Auto) % Eos % (Auto) % Baso % (Auto) % Neut # (Auto) (1.4-6.5) K/uL Lymph # (Auto) (1.2-3.4) K/uL Hays # (Auto) (0.11-0.59) K/uL Eos # (Auto) (0-0.5) K/uL Baso # (Auto) (0-0.2) K/uL Immature Gran # (Auto) (0.00-0.02) K/uL Absolute Nucleated RBC (0-0) K/uL Nucleated RBC % (auto) % Polychromasia Hypochromasia Poikilocytosis Ovalocytes PT 31.2 H (9.0-12.0) Seconds INR 3.4 H (0.9-1.1) APTT 41.8 H (21.0-31.0) Seconds PTT Ratio 1.6 VBG pH (7.36-7.41) VBG pCO2 (38-50) mmHg VBG pO2 mmHg VBG HCO3 mmol/L VBG O2 Saturation % VBG Base Excess mEq/L Barometric Pressure mm/Hg Sodium 130 L (136-145) mmol/L Potassium 4.9 (3.5-5.1) mmol/L Chloride 97 L (98-107) mmol/L Carbon Dioxide 25 (21-32) mmol/L Anion Gap 8.0 (3-11) BUN 15 (7-18) mg/dl Creatinine 0.97 (0.6-1.2) mg/dl Est Cr Clr Drug Dosing Not Reportable Est GFR ( Amer) 62.6 ml/min Est GFR (Non-Af Amer) 54.0 ml/min BUN/Creatinine Ratio 15.0 (10-20) Glucose 123 H (70-99) mg/dl Lactate 2.1 H* (0.4-2.0) mmol/L Calcium 8.7 (8.5-10.1) mg/dl Magnesium 2.4 (1.8-2.4) mg/dl Total Bilirubin 0.4 (0.2-1) mg/dl AST 12 L (15-37) U/L ALT 14 (12-78) U/L Alkaline Phosphatase 55 (45-117) U/L Troponin I < 0.015 (0-0.045) ng/ml NT-Pro-B Natriuret Pep 06669 H (0-1800) pg/ml Total Protein 7.0 (6.4-8.2) gm/dl Albumin 3.2 L (3.4-5.0) gm/dl Globulin 3.8 (2.5-4.0) gm/dl Albumin/Globulin Ratio 0.8 L (0.9-2) Procalcitonin (0-0.5) ng/ml Urine Color Urine Appearance (Clear) Urine pH (4.5-7.5) Ur Specific Costa (1.000-1.030) Urine Protein (Negative) Urine Glucose (UA) (Negative) Urine Ketones (Negative) Urine Blood (Negative) Urine Nitrite (Negative) Urine Bilirubin (Negative) Urine Urobilinogen (Negative) Ur Leukocyte Esterase (Negative) Urine WBC (Auto) (0-5) /hpf Urine RBC (Auto) (0-4) /hpf U Hyaline Cast (Auto) (0-5) /lpf U Epithel Cells (Auto) (0-5) /lpf Urine Bacteria (Auto) (Negative) Adenovirus (PCR) (NotDetected) B. pertussis DNA (PCR) (NotDetected) B.parapertussis DNA PCR (NotDetected) C. pneumoniae DNA (PCR) (NotDetected) Coronavirus OC43 (PCR) (NotDetected) Coronavirus HKU1 (PCR) (NotDetected) Coronavirus 229E (PCR) (NotDetected) COVID-19 Eval Order SARS-CoV-2 (PCR) (NotDetected) Coronavirus NL63 (PCR) (NotDetected) Human Metapneumovir PCR (NotDetected) Influenza Type A (PCR) (NotDetected) Influenza Type B (PCR) (NotDetected) M. pneumoniae (PCR) (NotDetected) Parainfluenza 1 (PCR) (NotDetected) Parainfluenza 2 (PCR) (NotDetected) Parainfluenza 3 (PCR) (NotDetected) Parainfluenza 4 (PCR) (NotDetected) RSV (PCR) (NotDetected) Entero/Rhino (PCR) (NotDetected) Blood Type Blood Type Recheck Antibody Screen Crossmatch 06/26/21 06/26/21 06/26/21 Range/Units 18:14 18:00 18:00 WBC 11.69 H (4.8-10.8) K/uL RBC 3.26 L (4.2-5.4) M/uL Hgb 6.8 L* (12.0-16.0) g/dL Hct 23.8 L (37-47) % MCV 73.0 L (80-100) fL MCH 20.9 L (25-34) pg MCHC 28.6 L (32-36) g/dL RDW Std Deviation 47.1 H (36.4-46.3) fL RDW Coeff of Valerie 17.5 H (11.5-14.5) % Plt Count 435 H (130-400) K/uL MPV 10.4 (7.4-10.4) fL Immature Gran % (Auto) 0.3 % Neut % (Auto) 77.8 % Lymph % (Auto) 10.9 % Hays % (Auto) 10.7 % Eos % (Auto) 0.1 % Baso % (Auto) 0.2 % Neut # (Auto) 9.10 H (1.4-6.5) K/uL Lymph # (Auto) 1.28 (1.2-3.4) K/uL Hays # (Auto) 1.25 H (0.11-0.59) K/uL Eos # (Auto) 0.01 (0-0.5) K/uL Baso # (Auto) 0.02 (0-0.2) K/uL Immature Gran # (Auto) 0.03 H (0.00-0.02) K/uL Absolute Nucleated RBC (0-0) K/uL Nucleated RBC % (auto) % Polychromasia 1+ Hypochromasia Present Poikilocytosis Present Ovalocytes PT (9.0-12.0) Seconds INR (0.9-1.1) APTT (21.0-31.0) Seconds PTT Ratio VBG pH (7.36-7.41) VBG pCO2 (38-50) mmHg VBG pO2 mmHg VBG HCO3 mmol/L VBG O2 Saturation % VBG Base Excess mEq/L Barometric Pressure mm/Hg Sodium (136-145) mmol/L Potassium (3.5-5.1) mmol/L Chloride (98-107) mmol/L Carbon Dioxide (21-32) mmol/L Anion Gap (3-11) BUN (7-18) mg/dl Creatinine (0.6-1.2) mg/dl Est Cr Clr Drug Dosing Est GFR ( Amer) ml/min Est GFR (Non-Af Amer) ml/min BUN/Creatinine Ratio (10-20) Glucose (70-99) mg/dl Lactate (0.4-2.0) mmol/L Calcium (8.5-10.1) mg/dl Magnesium (1.8-2.4) mg/dl Total Bilirubin (0.2-1) mg/dl AST (15-37) U/L ALT (12-78) U/L Alkaline Phosphatase (45-117) U/L Troponin I (0-0.045) ng/ml NT-Pro-B Natriuret Pep (0-1800) pg/ml Total Protein (6.4-8.2) gm/dl Albumin (3.4-5.0) gm/dl Globulin (2.5-4.0) gm/dl Albumin/Globulin Ratio (0.9-2) Procalcitonin (0-0.5) ng/ml Urine Color Urine Appearance (Clear) Urine pH (4.5-7.5) Ur Specific [place] (1.000-1.030) Urine Protein (Negative) Urine Glucose (UA) (Negative) Urine Ketones (Negative) Urine Blood (Negative) Urine Nitrite (Negative) Urine Bilirubin (Negative) Urine Urobilinogen (Negative) Ur Leukocyte Esterase (Negative) Urine WBC (Auto) (0-5) /hpf Urine RBC (Auto) (0-4) /hpf U Hyaline Cast (Auto) (0-5) /lpf U Epithel Cells (Auto) (0-5) /lpf Urine Bacteria (Auto) (Negative) Adenovirus (PCR) Not Detected (NotDetected) B. pertussis DNA (PCR) Not Detected (NotDetected) B.parapertussis DNA PCR Not Detected (NotDetected) C. pneumoniae DNA (PCR) Not Detected (NotDetected) Coronavirus OC43 (PCR) Not Detected (NotDetected) Coronavirus HKU1 (PCR) Not Detected (NotDetected) Coronavirus 229E (PCR) Not Detected (NotDetected) COVID-19 Eval Order [facility] at [facility] SARS-CoV-2 (PCR) Not Detected (NotDetected) Coronavirus NL63 (PCR) Not Detected (NotDetected) Human Metapneumovir PCR Not Detected (NotDetected) Influenza Type A (PCR) Not Detected (NotDetected) Influenza Type B (PCR) Not Detected (NotDetected) M. pneumoniae (PCR) Not Detected (NotDetected) Parainfluenza 1 (PCR) Not Detected (NotDetected) Parainfluenza 2 (PCR) Not Detected (NotDetected) Parainfluenza 3 (PCR) Not Detected (NotDetected) Parainfluenza 4 (PCR) Not Detected (NotDetected) RSV (PCR) Not Detected (NotDetected) Entero/Rhino (PCR) Not Detected (NotDetected) Blood Type Blood Type Recheck Antibody Screen Crossmatch Diagnostic Findings CXR 06/26 Cardiomegaly with CHF Bilateral airspace opacities likely represent pulmonary edema Suspect small pleural effusion Echo 02/2019 with [facility] The examination is adequate to evaluate the referral indication. There was atrial fibrillation during the examination. The left ventricular wall motion is normal. The qualitative LV ejection fraction is 50-54% (normal). The left atrium is moderately enlarged (42-48 ml/m^2). Mild aortic valve regurgitation is present. Moderate mitral regurgitation is present. Mild tricuspid regurgitation is present. Moderate pulmonary hypertension is present. The estimated pulmonary artery systolic pressure is 53mm Hg. (1) Anemia Anemia type: unspecified type Qualified Code(s): D64.9 - Anemia, unspecified
[2021-06-27] MEDS: FUROSEMIDE 40 MG in SYRINGE 0 ML IV SCH ×2 (08:42→20:49)
[2021-06-27] MEDS: ASPIRIN 81 MG ECTAB PO SCH (08:46)
[2021-06-27] MEDS: CHOLECALCIFEROL 1,000 UNITS 25 MCG TAB PO SCH (08:47)
[2021-06-27] MEDS: POTASSIUM CHLORIDE CRTAB 20 MEQ TABCR PO SCH (08:47)
[2021-06-27] MEDS: SPIRONOLACTONE 25 MG TAB PO SCH (08:47)
[2021-06-27] MEDS: CYANOCOBALAMIN 500 MCG TABLET (VITAMIN B-12) PO SCH (08:47)
[2021-06-27] MEDS ORDERED: XOPENEX/ATROVENT 1.25mg/0.5MG NEB COMBO NEB SCH (09:00)
[2021-06-27] MEDS ORDERED: cefTRIAXone SODIUM 2,000 MG in DEXTROSE 5% 50 ML IV SCH (09:00)
--- NOTE | 2021-06-27 09:21 | Gastrointestinal Consultation ---
Date of Consultation June 27, 2021 Assessment & Plan (1) Acute on chronic combined systolic and diastolic congestive heart failure: 81 year old female admitted w/ SOB --> acute on chronic SOB, anemia HGB 6.8 w/ INR 3.6. She is hemodynamically stable w/o s/s of GI blood loss reporting formed, brown stools No GI contraindication to diet today Would optimize cardiopulmonary status If remains admitted over the weekend, plan for EGD AM In the event she is discharge, can arrange for OP EGD/Colonoscopy Thank you for allowing us to participate in the care of this patient. Please call with any acute changes, questions or concerns. Please see addendum below with additional recommendation from my supervising physician. Supervising Physician Co-Signing Physician Notes I performed a history and physical examination of the patient today, including specifically on physical exam - soft abdomen. I have discussed the patient's management with the advanced practitioner. Please refer to the nurse practitioner's note for the documented findings and plan of care. No overt ongoing GI bleeding despite anemia, stool is brown. Recommend: Correct INR. EGD on Wednesday. Recall us if any manager of change the weekend. 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 She notes SOB and dry cough for about 1 week. Admitted through the ED w/ acute on chronic CHF, anemia w/ coagulopathy. Gi asked to evaluate for anemia. Denies any GI s/s Denies abd pain, nausea/ vomiting. denies diarrhea/constipation. No black or bloody stools. Moved from [place] around 2014. Last endoscopic evalations were around that time. She has history of PUD and colonic polyps. Allergies Allergy/AdvReac Type Severity Reaction Status Date / Time latex Allergy Rash Verified 06/26/21 19:53 Penicillins Allergy Hives Verified 06/26/21 19:53 shellfish derived Allergy Anaphylaxis Verified 06/26/21 19:53 Sulfa (Sulfonamide Allergy Hives Verified 06/26/21 19:53 Antibiotics) SMOKE Allergy THROAT Uncoded 06/26/21 19:53 CLOSES Home Medications Medication Instructions Recorded Confirmed Type acetaminophen 325 mg tablet 650 mg PO BID 06/26/21 06/26/21 History (Tylenol) albuterol sulfate 2.5 mg INHALATION Q4H PRN 06/26/21 06/26/21 History albuterol sulfate 90 mcg/actuation 2 puff INHALATION Q6 PRN 06/26/21 06/26/21 History aerosol inhaler aspirin 81 mg tablet,delayed 81 mg PO DAILY 06/26/21 06/26/21 History release calcium carbonate 600 mg(1,500 1 tab PO BID 06/26/21 06/26/21 History mg)-vitamin D3 800 unit chewable tablet (Caltrate 600 plus D) cholecalciferol (vitamin D3) 50 50 mcg PO DAILY 06/26/21 06/26/21 History mcg (2,000 unit) tablet (Vitamin D3) cyanocobalamin (vitamin B-12) 1,000 mcg PO DAILY 06/26/21 06/26/21 History 1,000 mcg tablet (Vitamin B-12) furosemide 20 mg tablet 20 mg PO BID 06/26/21 06/26/21 History omeprazole 40 mg capsule,delayed 40 mg PO BID 06/26/21 06/26/21 History release potassium chloride 20 mEq 20 meq PO DAILY 06/26/21 06/26/21 History tablet,extended release(part/cryst) spironolactone 25 mg tablet 25 mg PO DAILY 06/26/21 06/26/21 History torsemide 100 mg tablet 100 mg PO DAILY PRN 06/26/21 06/26/21 History verapamil 180 mg 24 hr 180 mg PO BID 06/26/21 06/26/21 History capsule,extended release warfarin 3 mg tablet 1.5 - 3 mg PO UD 06/26/21 06/26/21 History Patient History Medical History Atrial fibrillation Breast cancer COPD (chronic obstructive pulmonary disease) Surgical History History of abdominal hysterectomy History of cholecystectomy History of lumbar surgery History of mastectomy Social History (Reviewed 09/16/21 @ 17:56 by NINFA Arreola Smoking Status: Former smoker Second Hand Exposure: No; Do You Dip or Chew Tobacco: No; Tobacco Cessation Education Requested by Patient: No Hx Alcohol Use: No Hx Substance Use: No Preferred Language: Dutch Communication Ability: Effective Full Stack Developer Required: No Beliefs That Will Affect Care: None marital status: / Current Living Situation: Alone How many Children do You have: 4 Other Information That Helps Us Care for You: No Feels Safe at Home: Yes Assistive Devices: Cane and Walker Review of Systems Review of Systems: All systems reviewed & are unremarkable except as noted in HPI & below Physical Exam Constitutional: WD/WN, vitals as above Respiratory: normal respiratory effort, lungs clear to auscultation Cardiovascular: RRR, no murmur, no edema Gastrointestinal (Abdomen): normal bowel sounds, soft, nontender, no hepatosplenomegaly Skin: no rashes, warm and dry Results & Data ([facility]) Vital Signs (Past 12 Hours) Vital Signs Temp Pulse Pulse Resp BP BP Pulse Ox 06/27/21 08:26 78 18 98 06/27/21 02:41 91 H 26 H 108/53 L 97 06/27/21 02:26 90 27 H 106/59 L 95 06/27/21 02:00 93 H 22 100 06/27/21 01:59 90 20 93 06/27/21 01:45 94 H 23 96 06/27/21 01:43 95 H 25 H 96 06/27/21 01:34 37 C 90 22 153/83 H 94 06/27/21 01:26 90 23 142/100 H 96 06/27/21 01:12 83 21 153/82 H 91 06/27/21 00:46 87 11 L 06/27/21 00:33 36.8 C 90 22 126/80 96 06/27/21 00:05 36.8 C 92 H 22 128/75 98 06/27/21 00:04 36.8 C 83 22 128/75 95 06/27/21 00:00 90 21 137/57 L 97 06/26/21 23:50 37 C 92 H 19 131/70 96 06/26/21 23:45 36.8 C 93 H 18 137/69 97 06/26/21 23:30 96 H 23 137/69 97 06/26/21 23:00 99 H 22 123/67 94 06/26/21 22:30 93 H 22 132/53 L 99 06/26/21 22:00 94 H 22 138/61 96 06/26/21 21:30 92 H 23 115/51 L 96 Laboratory Results 06/27/21 06/27/21 06/27/21 Range/Units 05:03 05:03 05:03 WBC 6.54 (4.8-10.8) K/uL RBC 3.35 L (4.2-5.4) M/uL Hgb 7.4 L (12.0-16.0) g/dL Hct 25.2 L (37-47) % MCV 75.2 L (80-100) fL MCH 22.1 L (25-34) pg MCHC 29.4 L (32-36) g/dL RDW Std Deviation 51.0 H (36.4-46.3) fL RDW Coeff of Valerie 18.5 H (11.5-14.5) % Plt Count 350 (130-400) K/uL MPV 10.1 (7.4-10.4) fL Immature Gran % (Auto) 0.6 % Neut % (Auto) 94.7 % Lymph % (Auto) 3.8 % [place] % (Auto) 0.9 % Eos % (Auto) 0.0 % Baso % (Auto) 0.0 % Neut # (Auto) 6.19 (1.4-6.5) K/uL Lymph # (Auto) 0.25 L (1.2-3.4) K/uL [place] # (Auto) 0.06 L (0.11-0.59) K/uL Eos # (Auto) 0.00 (0-0.5) K/uL Baso # (Auto) 0.00 (0-0.2) K/uL Immature Gran # (Auto) 0.04 H (0.00-0.02) K/uL Absolute Nucleated RBC 0.03 H (0-0) K/uL Nucleated RBC % (auto) 0.4 % Polychromasia 1+ Hypochromasia Present Poikilocytosis Ovalocytes 1+ PT 32.7 H (9.0-12.0) Seconds INR 3.6 H (0.9-1.1) APTT (21.0-31.0) Seconds PTT Ratio VBG pH (7.36-7.41) VBG pCO2 (38-50) mmHg VBG pO2 mmHg VBG HCO3 mmol/L VBG O2 Saturation % VBG Base Excess mEq/L Barometric Pressure mm/Hg Sodium 128 L (136-145) mmol/L Potassium 4.6 (3.5-5.1) mmol/L Chloride 97 L (98-107) mmol/L Carbon Dioxide 26 (21-32) mmol/L Anion Gap 5.0 (3-11) BUN 15 (7-18) mg/dl Creatinine 0.88 (0.6-1.2) mg/dl Est Cr Clr Drug Dosing 46.3 Est GFR ( Amer) 70.4 ml/min Est GFR (Non-Af Amer) 60.8 ml/min BUN/Creatinine Ratio 17.5 (10-20) Glucose 139 H (70-99) mg/dl Lactate (0.4-2.0) mmol/L Calcium 7.7 L (8.5-10.1) mg/dl Magnesium 2.2 (1.8-2.4) mg/dl Total Bilirubin (0.2-1) mg/dl AST (15-37) U/L ALT (12-78) U/L Alkaline Phosphatase (45-117) U/L Troponin I (0-0.045) ng/ml NT-Pro-B Natriuret Pep (0-1800) pg/ml Total Protein (6.4-8.2) gm/dl Albumin (3.4-5.0) gm/dl Globulin (2.5-4.0) gm/dl Albumin/Globulin Ratio (0.9-2) Procalcitonin (0-0.5) ng/ml Urine Color Urine Appearance (Clear) Urine pH (4.5-7.5) Ur Specific [place] (1.000-1.030) Urine Protein (Negative) Urine Glucose (UA) (Negative) Urine Ketones (Negative) Urine Blood (Negative) Urine Nitrite (Negative) Urine Bilirubin (Negative) Urine Urobilinogen (Negative) Ur Leukocyte Esterase (Negative) Urine WBC (Auto) (0-5) /hpf Urine RBC (Auto) (0-4) /hpf U Hyaline Cast (Auto) (0-5) /lpf U Epithel Cells (Auto) (0-5) /lpf Urine Bacteria (Auto) (Negative) Adenovirus (PCR) (NotDetected) B. pertussis DNA (PCR) (NotDetected) B.parapertussis DNA PCR (NotDetected) C. pneumoniae DNA (PCR) (NotDetected) Coronavirus OC43 (PCR) (NotDetected) Coronavirus HKU1 (PCR) (NotDetected) Coronavirus 229E (PCR) (NotDetected) COVID-19 Eval Order SARS-CoV-2 (PCR) (NotDetected) Coronavirus NL63 (PCR) (NotDetected) Human Metapneumovir PCR (NotDetected) Influenza Type A (PCR) (NotDetected) Influenza Type B (PCR) (NotDetected) M. pneumoniae (PCR) (NotDetected) Parainfluenza 1 (PCR) (NotDetected) Parainfluenza 2 (PCR) (NotDetected) Parainfluenza 3 (PCR) (NotDetected) Parainfluenza 4 (PCR) (NotDetected) RSV (PCR) (NotDetected) Entero/Rhino (PCR) (NotDetected) Blood Type Blood Type Recheck Antibody Screen Crossmatch 06/26/21 06/26/21 06/26/21 Range/Units 21:30 20:14 20:08 WBC (4.8-10.8) K/uL RBC (4.2-5.4) M/uL Hgb (12.0-16.0) g/dL Hct (37-47) % MCV (80-100) fL MCH (25-34) pg MCHC (32-36) g/dL RDW Std Deviation (36.4-46.3) fL RDW Coeff of Valerie (11.5-14.5) % Plt Count (130-400) K/uL MPV (7.4-10.4) fL Immature Gran % (Auto) % Neut % (Auto) % Lymph % (Auto) % [place] % (Auto) % Eos % (Auto) % Baso % (Auto) % Neut # (Auto) (1.4-6.5) K/uL Lymph # (Auto) (1.2-3.4) K/uL [place] # (Auto) (0.11-0.59) K/uL Eos # (Auto) (0-0.5) K/uL Baso # (Auto) (0-0.2) K/uL Immature Gran # (Auto) (0.00-0.02) K/uL Absolute Nucleated RBC (0-0) K/uL Nucleated RBC % (auto) % Polychromasia Hypochromasia Poikilocytosis Ovalocytes PT (9.0-12.0) Seconds INR (0.9-1.1) APTT (21.0-31.0) Seconds PTT Ratio VBG pH (7.36-7.41) VBG pCO2 (38-50) mmHg VBG pO2 mmHg VBG HCO3 mmol/L VBG O2 Saturation % VBG Base Excess mEq/L Barometric Pressure mm/Hg Sodium (136-145) mmol/L Potassium (3.5-5.1) mmol/L Chloride (98-107) mmol/L Carbon Dioxide (21-32) mmol/L Anion Gap (3-11) BUN (7-18) mg/dl Creatinine (0.6-1.2) mg/dl Est Cr Clr Drug Dosing Est GFR ( Amer) ml/min Est GFR (Non-Af Amer) ml/min BUN/Creatinine Ratio (10-20) Glucose (70-99) mg/dl Lactate 1.7 (0.4-2.0) mmol/L Calcium (8.5-10.1) mg/dl Magnesium (1.8-2.4) mg/dl Total Bilirubin (0.2-1) mg/dl AST (15-37) U/L ALT (12-78) U/L Alkaline Phosphatase (45-117) U/L Troponin I (0-0.045) ng/ml NT-Pro-B Natriuret Pep (0-1800) pg/ml Total Protein (6.4-8.2) gm/dl Albumin (3.4-5.0) gm/dl Globulin (2.5-4.0) gm/dl Albumin/Globulin Ratio (0.9-2) Procalcitonin (0-0.5) ng/ml Urine Color Yellow Urine Appearance Cloudy A (Clear) Urine pH 5.5 (4.5-7.5) Ur Specific [place] 1.010 (1.000-1.030) Urine Protein Negative (Negative) Urine Glucose (UA) Negative (Negative) Urine Ketones Negative (Negative) Urine Blood Negative (Negative) Urine Nitrite Positive A (Negative) Urine Bilirubin Negative (Negative) Urine Urobilinogen Negative (Negative) Ur Leukocyte Esterase 1+ H (Negative) Urine WBC (Auto) 10-30 H (0-5) /hpf Urine RBC (Auto) 0-4 (0-4) /hpf U Hyaline Cast (Auto) 1-5 (0-5) /lpf U Epithel Cells (Auto) >30 H (0-5) /lpf Urine Bacteria (Auto) 2+ H (Negative) Adenovirus (PCR) (NotDetected) B. pertussis DNA (PCR) (NotDetected) B.parapertussis DNA PCR (NotDetected) C. pneumoniae DNA (PCR) (NotDetected) Coronavirus OC43 (PCR) (NotDetected) Coronavirus HKU1 (PCR) (NotDetected) Coronavirus 229E (PCR) (NotDetected) COVID-19 Eval Order SARS-CoV-2 (PCR) (NotDetected) Coronavirus NL63 (PCR) (NotDetected) Human Metapneumovir PCR (NotDetected) Influenza Type A (PCR) (NotDetected) Influenza Type B (PCR) (NotDetected) M. pneumoniae (PCR) (NotDetected) Parainfluenza 1 (PCR) (NotDetected) Parainfluenza 2 (PCR) (NotDetected) Parainfluenza 3 (PCR) (NotDetected) Parainfluenza 4 (PCR) (NotDetected) RSV (PCR) (NotDetected) Entero/Rhino (PCR) (NotDetected) Blood Type Blood Type Recheck O Negative Antibody Screen Crossmatch 06/26/21 06/26/21 06/26/21 Range/Units 18:52 18:14 18:14 WBC (4.8-10.8) K/uL RBC (4.2-5.4) M/uL Hgb (12.0-16.0) g/dL Hct (37-47) % MCV (80-100) fL MCH (25-34) pg MCHC (32-36) g/dL RDW Std Deviation (36.4-46.3) fL RDW Coeff of Valerie (11.5-14.5) % Plt Count (130-400) K/uL MPV (7.4-10.4) fL Immature Gran % (Auto) % Neut % (Auto) % Lymph % (Auto) % [place] % (Auto) % Eos % (Auto) % Baso % (Auto) % Neut # (Auto) (1.4-6.5) K/uL Lymph # (Auto) (1.2-3.4) K/uL [place] # (Auto) (0.11-0.59) K/uL Eos # (Auto) (0-0.5) K/uL Baso # (Auto) (0-0.2) K/uL Immature Gran # (Auto) (0.00-0.02) K/uL Absolute Nucleated RBC (0-0) K/uL Nucleated RBC % (auto) % Polychromasia Hypochromasia Poikilocytosis Ovalocytes PT (9.0-12.0) Seconds INR (0.9-1.1) APTT (21.0-31.0) Seconds PTT Ratio VBG pH 7.37 (7.36-7.41) VBG pCO2 42 (38-50) mmHg VBG pO2 69 mmHg VBG HCO3 24 mmol/L VBG O2 Saturation 91.3 % VBG Base Excess -1.5 mEq/L Barometric Pressure 736.7 mm/Hg Sodium (136-145) mmol/L Potassium (3.5-5.1) mmol/L Chloride (98-107) mmol/L Carbon Dioxide (21-32) mmol/L Anion Gap (3-11) BUN (7-18) mg/dl Creatinine (0.6-1.2) mg/dl Est Cr Clr Drug Dosing Est GFR ( Amer) ml/min Est GFR (Non-Af Amer) ml/min BUN/Creatinine Ratio (10-20) Glucose (70-99) mg/dl Lactate (0.4-2.0) mmol/L Calcium (8.5-10.1) mg/dl Magnesium (1.8-2.4) mg/dl Total Bilirubin (0.2-1) mg/dl AST (15-37) U/L ALT (12-78) U/L Alkaline Phosphatase (45-117) U/L Troponin I (0-0.045) ng/ml NT-Pro-B Natriuret Pep (0-1800) pg/ml Total Protein (6.4-8.2) gm/dl Albumin (3.4-5.0) gm/dl Globulin (2.5-4.0) gm/dl Albumin/Globulin Ratio (0.9-2) Procalcitonin 0.07 (0-0.5) ng/ml Urine Color Urine Appearance (Clear) Urine pH (4.5-7.5) Ur Specific [place] (1.000-1.030) Urine Protein (Negative) Urine Glucose (UA) (Negative) Urine Ketones (Negative) Urine Blood (Negative) Urine Nitrite (Negative) Urine Bilirubin (Negative) Urine Urobilinogen (Negative) Ur Leukocyte Esterase (Negative) Urine WBC (Auto) (0-5) /hpf Urine RBC (Auto) (0-4) /hpf U Hyaline Cast (Auto) (0-5) /lpf U Epithel Cells (Auto) (0-5) /lpf Urine Bacteria (Auto) (Negative) Adenovirus (PCR) (NotDetected) B. pertussis DNA (PCR) (NotDetected) B.parapertussis DNA PCR (NotDetected) C. pneumoniae DNA (PCR) (NotDetected) Coronavirus OC43 (PCR) (NotDetected) Coronavirus HKU1 (PCR) (NotDetected) Coronavirus 229E (PCR) (NotDetected) COVID-19 Eval Order SARS-CoV-2 (PCR) (NotDetected) Coronavirus NL63 (PCR) (NotDetected) Human Metapneumovir PCR (NotDetected) Influenza Type A (PCR) (NotDetected) Influenza Type B (PCR) (NotDetected) M. pneumoniae (PCR) (NotDetected) Parainfluenza 1 (PCR) (NotDetected) Parainfluenza 2 (PCR) (NotDetected) Parainfluenza 3 (PCR) (NotDetected) Parainfluenza 4 (PCR) (NotDetected) RSV (PCR) (NotDetected) Entero/Rhino (PCR) (NotDetected) Blood Type O Negative Blood Type Recheck Antibody Screen NEGATIVE Crossmatch See Detail 06/26/21 06/26/21 06/26/21 Range/Units 18:14 18:14 18:14 WBC (4.8-10.8) K/uL RBC (4.2-5.4) M/uL Hgb (12.0-16.0) g/dL Hct (37-47) % MCV (80-100) fL MCH (25-34) pg MCHC (32-36) g/dL RDW Std Deviation (36.4-46.3) fL RDW Coeff of Valerie (11.5-14.5) % Plt Count (130-400) K/uL MPV (7.4-10.4) fL Immature Gran % (Auto) % Neut % (Auto) % Lymph % (Auto) % [place] % (Auto) % Eos % (Auto) % Baso % (Auto) % Neut # (Auto) (1.4-6.5) K/uL Lymph # (Auto) (1.2-3.4) K/uL [place] # (Auto) (0.11-0.59) K/uL Eos # (Auto) (0-0.5) K/uL Baso # (Auto) (0-0.2) K/uL Immature Gran # (Auto) (0.00-0.02) K/uL Absolute Nucleated RBC (0-0) K/uL Nucleated RBC % (auto) % Polychromasia Hypochromasia Poikilocytosis Ovalocytes PT 31.2 H (9.0-12.0) Seconds INR 3.4 H (0.9-1.1) APTT 41.8 H (21.0-31.0) Seconds PTT Ratio 1.6 VBG pH (7.36-7.41) VBG pCO2 (38-50) mmHg VBG pO2 mmHg VBG HCO3 mmol/L VBG O2 Saturation % VBG Base Excess mEq/L Barometric Pressure mm/Hg Sodium 130 L (136-145) mmol/L Potassium 4.9 (3.5-5.1) mmol/L Chloride 97 L (98-107) mmol/L Carbon Dioxide 25 (21-32) mmol/L Anion Gap 8.0 (3-11) BUN 15 (7-18) mg/dl Creatinine 0.97 (0.6-1.2) mg/dl Est Cr Clr Drug Dosing Not Reportable Est GFR ( Amer) 62.6 ml/min Est GFR (Non-Af Amer) 54.0 ml/min BUN/Creatinine Ratio 15.0 (10-20) Glucose 123 H (70-99) mg/dl Lactate 2.1 H* (0.4-2.0) mmol/L Calcium 8.7 (8.5-10.1) mg/dl Magnesium 2.4 (1.8-2.4) mg/dl Total Bilirubin 0.4 (0.2-1) mg/dl AST 12 L (15-37) U/L ALT 14 (12-78) U/L Alkaline Phosphatase 55 (45-117) U/L Troponin I < 0.015 (0-0.045) ng/ml NT-Pro-B Natriuret Pep 72701 H (0-1800) pg/ml Total Protein 7.0 (6.4-8.2) gm/dl Albumin 3.2 L (3.4-5.0) gm/dl Globulin 3.8 (2.5-4.0) gm/dl Albumin/Globulin Ratio 0.8 L (0.9-2) Procalcitonin (0-0.5) ng/ml Urine Color Urine Appearance (Clear) Urine pH (4.5-7.5) Ur Specific [place] (1.000-1.030) Urine Protein (Negative) Urine Glucose (UA) (Negative) Urine Ketones (Negative) Urine Blood (Negative) Urine Nitrite (Negative) Urine Bilirubin (Negative) Urine Urobilinogen (Negative) Ur Leukocyte Esterase (Negative) Urine WBC (Auto) (0-5) /hpf Urine RBC (Auto) (0-4) /hpf U Hyaline Cast (Auto) (0-5) /lpf U Epithel Cells (Auto) (0-5) /lpf Urine Bacteria (Auto) (Negative) Adenovirus (PCR) (NotDetected) B. pertussis DNA (PCR) (NotDetected) B.parapertussis DNA PCR (NotDetected) C. pneumoniae DNA (PCR) (NotDetected) Coronavirus OC43 (PCR) (NotDetected) Coronavirus HKU1 (PCR) (NotDetected) Coronavirus 229E (PCR) (NotDetected) COVID-19 Eval Order SARS-CoV-2 (PCR) (NotDetected) Coronavirus NL63 (PCR) (NotDetected) Human Metapneumovir PCR (NotDetected) Influenza Type A (PCR) (NotDetected) Influenza Type B (PCR) (NotDetected) M. pneumoniae (PCR) (NotDetected) Parainfluenza 1 (PCR) (NotDetected) Parainfluenza 2 (PCR) (NotDetected) Parainfluenza 3 (PCR) (NotDetected) Parainfluenza 4 (PCR) (NotDetected) RSV (PCR) (NotDetected) Entero/Rhino (PCR) (NotDetected) Blood Type Blood Type Recheck Antibody Screen Crossmatch 06/26/21 06/26/21 06/26/21 Range/Units 18:14 18:00 18:00 WBC 11.69 H (4.8-10.8) K/uL RBC 3.26 L (4.2-5.4) M/uL Hgb 6.8 L* (12.0-16.0) g/dL Hct 23.8 L (37-47) % MCV 73.0 L (80-100) fL MCH 20.9 L (25-34) pg MCHC 28.6 L (32-36) g/dL RDW Std Deviation 47.1 H (36.4-46.3) fL RDW Coeff of Valerie 17.5 H (11.5-14.5) % Plt Count 435 H (130-400) K/uL MPV 10.4 (7.4-10.4) fL Immature Gran % (Auto) 0.3 % Neut % (Auto) 77.8 % Lymph % (Auto) 10.9 % [place] % (Auto) 10.7 % Eos % (Auto) 0.1 % Baso % (Auto) 0.2 % Neut # (Auto) 9.10 H (1.4-6.5) K/uL Lymph # (Auto) 1.28 (1.2-3.4) K/uL [place] # (Auto) 1.25 H (0.11-0.59) K/uL Eos # (Auto) 0.01 (0-0.5) K/uL Baso # (Auto) 0.02 (0-0.2) K/uL Immature Gran # (Auto) 0.03 H (0.00-0.02) K/uL Absolute Nucleated RBC (0-0) K/uL Nucleated RBC % (auto) % Polychromasia 1+ Hypochromasia Present Poikilocytosis Present Ovalocytes PT (9.0-12.0) Seconds INR (0.9-1.1) APTT (21.0-31.0) Seconds PTT Ratio VBG pH (7.36-7.41) VBG pCO2 (38-50) mmHg VBG pO2 mmHg VBG HCO3 mmol/L VBG O2 Saturation % VBG Base Excess mEq/L Barometric Pressure mm/Hg Sodium (136-145) mmol/L Potassium (3.5-5.1) mmol/L Chloride (98-107) mmol/L Carbon Dioxide (21-32) mmol/L Anion Gap (3-11) BUN (7-18) mg/dl Creatinine (0.6-1.2) mg/dl Est Cr Clr Drug Dosing Est GFR ( Amer) ml/min Est GFR (Non-Af Amer) ml/min BUN/Creatinine Ratio (10-20) Glucose (70-99) mg/dl Lactate (0.4-2.0) mmol/L Calcium (8.5-10.1) mg/dl Magnesium (1.8-2.4) mg/dl Total Bilirubin (0.2-1) mg/dl AST (15-37) U/L ALT (12-78) U/L Alkaline Phosphatase (45-117) U/L Troponin I (0-0.045) ng/ml NT-Pro-B Natriuret Pep (0-1800) pg/ml Total Protein (6.4-8.2) gm/dl Albumin (3.4-5.0) gm/dl Globulin (2.5-4.0) gm/dl Albumin/Globulin Ratio (0.9-2) Procalcitonin (0-0.5) ng/ml Urine Color Urine Appearance (Clear) Urine pH (4.5-7.5) Ur Specific [place] (1.000-1.030) Urine Protein (Negative) Urine Glucose (UA) (Negative) Urine Ketones (Negative) Urine Blood (Negative) Urine Nitrite (Negative) Urine Bilirubin (Negative) Urine Urobilinogen (Negative) Ur Leukocyte Esterase (Negative) Urine WBC (Auto) (0-5) /hpf Urine RBC (Auto) (0-4) /hpf U Hyaline Cast (Auto) (0-5) /lpf U Epithel Cells (Auto) (0-5) /lpf Urine Bacteria (Auto) (Negative) Adenovirus (PCR) Not Detected (NotDetected) B. pertussis DNA (PCR) Not Detected (NotDetected) B.parapertussis DNA PCR Not Detected (NotDetected) C. pneumoniae DNA (PCR) Not Detected (NotDetected) Coronavirus OC43 (PCR) Not Detected (NotDetected) Coronavirus HKU1 (PCR) Not Detected (NotDetected) Coronavirus 229E (PCR) Not Detected (NotDetected) COVID-19 Eval Order [facility]PNP at [facility] SARS-CoV-2 (PCR) Not Detected (NotDetected) Coronavirus NL63 (PCR) Not Detected (NotDetected) Human Metapneumovir PCR Not Detected (NotDetected) Influenza Type A (PCR) Not Detected (NotDetected) Influenza Type B (PCR) Not Detected (NotDetected) M. pneumoniae (PCR) Not Detected (NotDetected) Parainfluenza 1 (PCR) Not Detected (NotDetected) Parainfluenza 2 (PCR) Not Detected (NotDetected) Parainfluenza 3 (PCR) Not Detected (NotDetected) Parainfluenza 4 (PCR) Not Detected (NotDetected) RSV (PCR) Not Detected (NotDetected) Entero/Rhino (PCR) Not Detected (NotDetected) Blood Type Blood Type Recheck Antibody Screen Crossmatch
--- NOTE | 2021-06-27 09:56 | Electrocardiogram Report ---
Test Reason : Blood Pressure : / mmHG Vent. Rate : 088 BPM Atrial Rate : 067 BPM P-R Int : 000 ms QRS Dur : 122 ms QT Int : 378 ms P-R-T Axes : 000 -46 102 degrees QTc Int : 457 ms Atrial fibrillation Left bundle branch block Abnormal ECG When compared with ECG of 28-DEC-1996 12:36, Atrial fibrillation has replaced Sinus rhythm Left bundle branch block is now Present Confirmed by Ashu Haq ([id number]) on 06/27/2021 9:55:43 AM Referred By: REFERRED SELF Confirmed By:Ashu Haq
[2021-06-27 11:22] LABS: Hematocrit (blood only) 26.1 % (37-47); Hemoglobin 7.5 g/dL (12.0-16.0)
[2021-06-27 11:33] LABS: INR 3.7 (0.9-1.1)
[2021-06-27 13:46] LABS: BUN Creatinine Ratio 19.1 (10-20); Creatinine Clr Calc Pharmacy 43.8 ml/min; Est GFR (African American) 65.9 ml/min; Est GFR (Non-African American) 56.8 ml/min; Potassium 4.7 mmol/L (3.5-5.1)
[2021-06-27 13:55] LABS: INR 3.7 (0.9-1.1)
--- NOTE | 2021-06-27 15:38 | Hospitalist Progress Note ---
Date of Service June 27, 2021 Assessment & Plan Admission and Anticipated Discharge Date Admission Date: June 26, 2021 Results & Data Results & Data ([facility]) Vital Signs (Past 12 Hours) Vital Signs Temp Pulse Pulse Resp BP BP Pulse Ox 06/27/21 12:00 87 14 99/54 L 93 06/27/21 11:00 85 20 94 06/27/21 10:00 94 06/27/21 09:01 90 25 H 116/66 90 06/27/21 08:26 78 18 98 06/27/21 08:00 36.6 C 06/27/21 07:00 37 C
[2021-06-27 17:28] LABS: Hematocrit (blood only) 25.5 % (37-47); Hemoglobin 7.4 g/dL (12.0-16.0)
[2021-06-27 17:37] LABS: INR 2.5 (0.9-1.1); Prothrombin Time 23.5 Seconds (9.0-12.0)
[2021-06-27] MEDS: PANTOprazole 40 MG in SYRINGE 0 ML IV SCH (20:50)
[2021-06-28 06:31] LABS: INR 1.4 (0.9-1.1); Prothrombin Time 13.9 Seconds (9.0-12.0)
[2021-06-28] MEDS: POTASSIUM CHLORIDE CRTAB 20 MEQ TABCR PO SCH (08:42)
[2021-06-28] MEDS: DOXYCYCLINE HYCLATE 100 MG CAP PO SCH ×2 (08:42→20:35)
[2021-06-28] MEDS: FUROSEMIDE 40 MG in SYRINGE 0 ML IV SCH ×2 (08:42→15:55)
[2021-06-28] MEDS: VERAPAMIL HCL 180 MG TABCR PO SCH ×2 (08:42→20:35)
[2021-06-28] MEDS: CHOLECALCIFEROL 1,000 UNITS 25 MCG TAB PO SCH (08:42)
[2021-06-28] MEDS: PANTOprazole 40 MG in SYRINGE 0 ML IV SCH ×2 (08:42→20:35)
[2021-06-28] MEDS: ACETAMINOPHEN 325 MG TAB PO SCH ×2 (08:43→20:35)
[2021-06-28] MEDS: CYANOCOBALAMIN 500 MCG TABLET (VITAMIN B-12) PO SCH (08:43)
[2021-06-28] MEDS: SPIRONOLACTONE 25 MG TAB PO SCH (08:43)
[2021-06-28] MEDS: ASPIRIN 81 MG ECTAB PO SCH (08:43)
[2021-06-28] MEDS ORDERED: IRON SUCROSE 150 MG in SODIUM CHLORIDE 0.9% 250 ML IV ONE (09:00)
[2021-06-28 09:02] LABS: Hematocrit (blood only) 24.6 % (37-47); Mean Corpuscular Hemoglobin 21.6 pg (25-34); Mean Corpuscular Hgb Conc 28.5 g/dL (32-36); Mean Corpuscular Volume 75.9 fL (80-100); Mean Platelet Volume 10.4 fL (7.4-10.4); Nucleated RBC # (auto) 0.08 K/uL (0-0); Nucleated RBC % (auto) 0.7 %; Platelet Count 381 K/uL (130-400); RDW Coefficient of Variation 18.4 % (11.5-14.5); RDW Standard Deviation 51.8 fL (36.4-46.3); Red Blood Count 3.24 M/uL (4.2-5.4); White Blood Count 10.48 K/uL (4.8-10.8)
[2021-06-28 09:12] LABS: BUN Creatinine Ratio 23.3 (10-20); Calcium 7.8 mg/dl (8.5-10.1); Creatinine Clr Calc Pharmacy 38.4 ml/min; Est GFR (African American) 56.2 ml/min; Est GFR (Non-African American) 48.5 ml/min; Magnesium 2.3 mg/dl (1.8-2.4); Potassium 4.5 mmol/L (3.5-5.1)
[2021-06-28 09:17] LABS: Anisocytosis Present; Basophils # (auto) 0.01 K/uL (0-0.2); Basophils % (auto) 0.1 %; Eosinophils # (auto) 0.01 K/uL (0-0.5); Eosinophils % (auto) 0.1 %; Hypochromasia Present; Immature Granulocytes # (auto) 0.02 K/uL (0.00-0.02); Immature Granulocytes % (auto) 0.2 %; Lymphocytes # (auto) 0.72 K/uL (1.2-3.4); Lymphocytes % (auto) 6.9 %; Monocytes # (auto) 1.48 K/uL (0.11-0.59); Monocytes % (auto) 14.1 %; Neutrophils # (auto) 8.24 K/uL (1.4-6.5); Neutrophils % (auto) 78.6 %; Polychromasia 1+
[2021-06-28] MEDS: LEVALBUTEROL HCL 1.25 MG/3 ML NEB NEB PRN ×2 (09:28→15:47)
[2021-06-28] MEDS: cefUROXime axetil 250 MG TABLET PO SCH ×2 (09:45→20:35)
--- NOTE | 2021-06-28 10:07 | Cardiology Progress Note ---
Date of Service June 28, 2021 Assessment & Plan (1) Acute on chronic combined systolic and diastolic congestive heart failure: (2) Anemia: (3) Hypertensive heart disease: (4) Valvular heart disease: (5) Atrial fibrillation, permanent: (6) Pulmonary HTN: Plan: The patient is currently clinically stable however her hemoglobin today is 7. She is going to have an EGD completed prior to discharge. I think the patient's current principal problem is her anemia which has to be worked up, evaluated and treated. Admission and Anticipated Discharge Date Admission Date: June 26, 2021 Subjective The patient is doing better and has no new complaints today. Review of Systems Review of Systems: Review of Systems: See HPI for pertinent positives. All other 10 point review of systems are negative. Physical Exam Physical Exam: General: no acute distress and stated age Head: normocephalic, no masses, lesions, tenderness or abnormalities Eyes: conjunctiva are pink and non-injected, sclera clear Neck: supple, no adenopathy, no bruits, normal jugular venous pulse, no hepatojugular reflux Chest: normal shape and normal respiratory effort Lungs: clear to auscultation and percussion Cardiac Exam: - regular rate & rhythm, no murmurs gallops or rubs - normal S1, normal S2 Pulses: 2(+) throughout Abdomen: abdomen soft, non-tender, no abnormal masses and no hepatosplenomegaly Musculoskeletal: no gait disturbance, no joint inflammation, no deforming arthritis Extremities: no edema and no cyanosis Neuro: grossly normal exam Results & Data ([facility]) Vital Signs (Past 12 Hours) Vital Signs Temp Pulse Resp BP Pulse Ox 06/28/21 09:28 92 H 18 96 06/28/21 07:31 36.6 C 84 19 121/69 93 06/28/21 03:09 36.6 C 72 19 127/75 96 06/27/21 23:11 37.3 C 83 19 88/51 L 92 Laboratory Results Laboratory Results - last 24 hr 06/26/21 06/27/21 06/27/21 18:52 10:53 10:53 WBC RBC Hgb 7.5 L Hct 26.1 L MCV MCH MCHC RDW Std Deviation RDW Coeff of Valerie Plt Count MPV Immature Gran % (Auto) Neut % (Auto) Lymph % (Auto) Ector % (Auto) Eos % (Auto) Baso % (Auto) Neut # (Auto) Lymph # (Auto) Ector # (Auto) Eos # (Auto) Baso # (Auto) Immature Gran # (Auto) Absolute Nucleated RBC Nucleated RBC % (auto) Polychromasia Hypochromasia Anisocytosis PT INR Sodium Potassium Chloride Carbon Dioxide Anion Gap BUN Creatinine Est Cr Clr Drug Dosing Est GFR ( Amer) Est GFR (Non-Af Amer) BUN/Creatinine Ratio Glucose POC Glucose Calcium Magnesium Iron 13 L Vitamin B12 Folate Crossmatch See Detail 06/27/21 06/27/21 06/27/21 10:53 13:21 13:21 WBC RBC Hgb Hct MCV MCH MCHC RDW Std Deviation RDW Coeff of Valerie Plt Count MPV Immature Gran % (Auto) Neut % (Auto) Lymph % (Auto) Ector % (Auto) Eos % (Auto) Baso % (Auto) Neut # (Auto) Lymph # (Auto) Ector # (Auto) Eos # (Auto) Baso # (Auto) Immature Gran # (Auto) Absolute Nucleated RBC Nucleated RBC % (auto) Polychromasia Hypochromasia Anisocytosis PT 34.0 H 34.0 H INR 3.7 H 3.7 H Sodium 128 L Potassium 4.7 Chloride 96 L Carbon Dioxide 28 Anion Gap 4.0 BUN 18 Creatinine 0.93 Est Cr Clr Drug Dosing 43.8 Est GFR ( Amer) 65.9 Est GFR (Non-Af Amer) 56.8 BUN/Creatinine Ratio 19.1 Glucose 98 POC Glucose Calcium 8.0 L Magnesium Iron Vitamin B12 Folate Crossmatch 06/27/21 06/27/21 06/28/21 17:07 17:07 05:24 WBC RBC Hgb 7.4 L Hct 25.5 L MCV MCH MCHC RDW Std Deviation RDW Coeff of Valerie Plt Count MPV Immature Gran % (Auto) Neut % (Auto) Lymph % (Auto) Ector % (Auto) Eos % (Auto) Baso % (Auto) Neut # (Auto) Lymph # (Auto) Ector # (Auto) Eos # (Auto) Baso # (Auto) Immature Gran # (Auto) Absolute Nucleated RBC Nucleated RBC % (auto) Polychromasia Hypochromasia Anisocytosis PT 23.5 H 13.9 H INR 2.5 H 1.4 H Sodium Potassium Chloride Carbon Dioxide Anion Gap BUN Creatinine Est Cr Clr Drug Dosing Est GFR ( Amer) Est GFR (Non-Af Amer) BUN/Creatinine Ratio Glucose POC Glucose Calcium Magnesium Iron Vitamin B12 Folate Crossmatch 06/28/21 06/28/21 06/28/21 05:24 05:27 05:27 WBC 10.48 RBC 3.24 L Hgb 7.0 L Hct 24.6 L MCV 75.9 L MCH 21.6 L MCHC 28.5 L RDW Std Deviation 51.8 H RDW Coeff of Valerie 18.4 H Plt Count 381 MPV 10.4 Immature Gran % (Auto) 0.2 Neut % (Auto) 78.6 Lymph % (Auto) 6.9 Ector % (Auto) 14.1 Eos % (Auto) 0.1 Baso % (Auto) 0.1 Neut # (Auto) 8.24 H Lymph # (Auto) 0.72 L Ector # (Auto) 1.48 H Eos # (Auto) 0.01 Baso # (Auto) 0.01 Immature Gran # (Auto) 0.02 Absolute Nucleated RBC 0.08 H Nucleated RBC % (auto) 0.7 Polychromasia 1+ Hypochromasia Present Anisocytosis Present PT INR Sodium 130 L Potassium 4.5 Chloride 96 L Carbon Dioxide 29 Anion Gap 5.0 BUN 25 H Creatinine 1.06 Est Cr Clr Drug Dosing 38.4 Est GFR ( Amer) 56.2 Est GFR (Non-Af Amer) 48.5 BUN/Creatinine Ratio 23.3 H Glucose 87 POC Glucose Calcium 7.8 L Magnesium 2.3 Iron Vitamin B12 Pending Folate Pending Crossmatch 06/28/21 07:28 WBC RBC Hgb Hct MCV MCH MCHC RDW Std Deviation RDW Coeff of Valerie Plt Count MPV Immature Gran % (Auto) Neut % (Auto) Lymph % (Auto) Ector % (Auto) Eos % (Auto) Baso % (Auto) Neut # (Auto) Lymph # (Auto) Ector # (Auto) Eos # (Auto) Baso # (Auto) Immature Gran # (Auto) Absolute Nucleated RBC Nucleated RBC % (auto) Polychromasia Hypochromasia Anisocytosis PT INR Sodium Potassium Chloride Carbon Dioxide Anion Gap BUN Creatinine Est Cr Clr Drug Dosing Est GFR ( Amer) Est GFR (Non-Af Amer) BUN/Creatinine Ratio Glucose POC Glucose 94 Calcium Magnesium Iron Vitamin B12 Folate Crossmatch Medications Administered Current Inpatient Medications Acetaminophen (Acetaminophen 325 Mg Tab) 650 mg PO Q4H PRN PRN Reason: Pain or Fever Stop: 07/27/21 01:02 Acetaminophen (Acetaminophen 325 Mg Tab) 650 mg PO BID CHIKI Stop: 07/27/21 01:29 Last Admin: 06/28/21 08:43 Dose: 650 mg Documented by: Albuterol (Albuterol Hfa 8 Gm Inhaler) 2 puffs INH Q6R PRN PRN Reason: Shortness Of Breath Or Wheezin Stop: 07/27/21 01:02 Aspirin (Aspirin 81 Mg Ectab) 81 mg PO DAILY CHIKI Stop: 07/27/21 08:59 Last Admin: 06/28/21 08:43 Dose: 81 mg Documented by: Cefuroxime Axetil (Cefuroxime Axetil 250 Mg Tablet) 250 mg PO BID CHIKI Stop: 07/03/21 08:59 Cyanocobalamin (Cyanocobalamin 500 Mcg Tablet (Vitamin B-12)) 1,000 mcg PO DAILY CHIKI Stop: 07/27/21 08:59 Last Admin: 06/28/21 08:43 Dose: 1,000 mcg Documented by: Doxycycline Hyclate (Doxycycline Hyclate 100 Mg Cap) 100 mg PO BID CHIKI Stop: 07/04/21 01:29 Last Admin: 06/28/21 08:42 Dose: 100 mg Documented by: Ferrous Sulfate (Ferrous Sulfate 325 Mg Tab) 325 mg PO BIDM CHIKI Stop: 07/28/21 16:59 Sodium Chloride (Nss) 250 mls @ 15 mls/hr IV .[id number] PRN PRN Reason: For Transfusion Stop: 07/27/21 01:02 Furosemide 40 mg/ Syringe 4 mls @ 4 mls/min IV BID CHIKI Stop: 07/27/21 08:59 Last Admin: 06/28/21 08:42 Dose: 4 mls/min Documented by: Pantoprazole Sodium 40 mg/ (Syringe) 10 mls @ 5 mls/min IV BID CHIKI Stop: 07/27/21 20:59 Last Admin: 06/28/21 08:42 Dose: 5 mls/min Documented by: Iron Sucrose 150 mg/ Sodium (Chloride) 257.5 mls @ 176.667 mls/hr IV TODAY@0900 ONE Stop: 06/28/21 10:27 Last Admin: 06/28/21 08:46 Dose: 176.7 mls/hr Documented by: Levalbuterol HCl (Levalbuterol Hcl 1.25 Mg/3 Ml Neb) 1.25 mg NEB Q2R PRN PRN Reason: Shortness Of Breath Or Wheezing Stop: 07/27/21 01:02 Last Admin: 06/28/21 09:28 Dose: 1.25 mg Documented by: Nitroglycerin (Nitroglycerin Sl 0.4 Mg/Tab Tab) 0.4 mg SL UD PRN PRN Reason: Chest Pain Stop: 07/27/21 01:02 Ondansetron HCl (Ondansetron Inj 2 Mg/Ml 2 Ml Vial) 4 mg IV Q6H PRN PRN Reason: Nausea Stop: 07/27/21 01:02 Polyethylene Glycol (Polyethylene (Miralax) 17 Gm Pack) 17 gm PO DAILY PRN PRN Reason: Constipation Stop: 07/27/21 01:02 Potassium Chloride (Potassium Chloride Crtab 20 Meq Tabcr) 20 meq PO DAILY [facility] Stop: 07/27/21 08:59 Last Admin: 06/28/21 08:42 Dose: 20 meq Documented by: Spironolactone (Spironolactone 25 Mg Tab) 25 mg PO DAILY CHIKI Stop: 07/27/21 08:59 Last Admin: 06/28/21 08:43 Dose: 25 mg Documented by: Verapamil HCl (Verapamil Hcl 180 Mg Tabcr) 180 mg PO BID [facility] Stop: 07/27/21 01:29 Last Admin: 06/28/21 08:42 Dose: 180 mg Documented by: Vitamin D (Cholecalciferol 1,000 Units 25 Mcg Tab) 2,000 units PO DAILY [facility] Stop: 07/27/21 08:59 Last Admin: 06/28/21 08:42 Dose: 2,000 units Documented by: (1) Anemia Anemia type: unspecified type Qualified Code(s): D64.9 - Anemia, unspecified
[2021-06-28] MEDS ORDERED: SODIUM CHLORIDE 0.9% 250 ML IV PRN (10:43)
[2021-06-28 10:54] LABS: Folate (Folic Acid) 9.8 ng/ml (>5.38)
--- NOTE | 2021-06-28 17:04 | Hospitalist Progress Note ---
Date of Service June 28, 2021 Assessment & Plan (1) Acute on chronic combined systolic and diastolic congestive heart failure: (2) Anemia: Plan: ASSESSMENT AND PLAN: This is an 81-year-old female who presents with shortness of breath . 1. Shortness of breath: Most likely secondary to [id number] systolic and diastolic congestive heart failure. The patient has EF of 50% and also the patient has non-rheumatic tricuspid valve insufficiency. -- diuresing gradually -- continue Lasux 40mg IV q12h continue home spironolactone --monitor crea -- Soloist Dancer on board 2. Anemia: The patient is on Coumadin. INR 3.4. The patient has no obvious s igns of bleeding -- Hg 7 additional 1 unit PRBC ordered -- no overt signs of GI bleed -- for EGD Wednesday Protonix IV BID -- INR 3.4 on admission, reversed with Vit K now 1.8 hold Coumadin 3. History of mild chronic obstructive pulmonary disease -- continue Nebs 4. 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 5. Chronic kidney disease stage III: -- monitor 6. History of left bundle-branch block. 7. History of atrial fibrillation, persistent: Continue her home medication of verapamil 180 mg b.i.d., holding Coumadin 8. E coli uti. -- transition to Cefuroxime- ABx day 2 9. Deep venous thrombosis prophylaxis: sequential compression devices. Disposition will need PT/OT evaluation Admission and Anticipated Discharge Date Admission Date: June 26, 2021 Subjective ff up for CHF, anemia, possible GI bleed etc seen resting in bed, sitting up having Nebs states she feels mildly dyspneic likely related to her claustrophobia per patient no chest pain, cough no abdominal pain, nausea, melena no other symptoms Review of Systems Review of Systems: all noted and negative except for above Physical Exam Physical Exam: General- oriented x 3, not in distress, speaks in sentences with no effort or accessory muscle use Eyes- anicteric Neck- no JVD Lungs- mild rales at the bases no wheezing Heart- normal rate, regular rhythm; no murmurs Abdomen- normal bowel sounds, nondistended, soft, nontender Extremities- mild lower leg edema, no calf tenderness Neuro- alert, oriented x 3; no gross focal neurologic deficits Skin- warm & dry Results & Data Results & Data ([facility]) Vital Signs (Past 12 Hours) Vital Signs Temp Pulse Pulse Resp BP BP Pulse Ox 06/28/21 15:48 91 H 20 94 06/28/21 15:39 36.7 C 06/28/21 15:20 36.6 C 83 18 134/71 20 L 06/28/21 14:20 36.7 C 86 20 119/66 95 06/28/21 13:20 36.9 C 85 18 132/73 95 06/28/21 13:16 36.5 C 87 32 H 114/56 L 97 06/28/21 12:50 36.9 C 82 20 140/78 94 06/28/21 12:35 36.8 C 88 22 132/70 95 06/28/21 12:20 36.8 C 87 20 108/60 95 06/28/21 11:25 36.5 C 92 H 18 114/58 L 95 06/28/21 09:28 92 H 18 96 06/28/21 07:31 36.6 C 84 19 121/69 93 all noted and reviewed including below (1) Anemia Anemia type: unspecified type Qualified Code(s): D64.9 - Anemia, unspecified
--- NOTE | 2021-06-28 17:28 | XRay Report ---
XR chest 1V portable CLINICAL HISTORY: ff up CHF COMPARISON STUDY: Chest radiograph June 26, 2021. FINDINGS: Right axillary surgical clips are incidentally noted. Cardiomegaly is again noted. Mild pul monary edema is noted. This has improved since prior examination. Linear right midlung opacity favors atelectasis. There is no pneumothorax. There are possible trace bilateral pleural effusions. IMPRESSION: 1. Mild interstitial pulmonary edema, improved since prior exam. 2. Cardiomegaly. Suspected trace bilateral pleural effusions. ACT 112: Negative or not required by law. Electronically signed by: Ryan Garay M.D. 06/28/2021 5:27 PM
[2021-06-28] MEDS: FERROUS SULFATE 325 MG TAB PO SCH (18:19)
[2021-06-28 18:24] LABS: Hematocrit (blood only) 28.4 % (37-47); Hemoglobin 8.5 g/dL (12.0-16.0)
[2021-06-29 06:31] LABS: Basophils # (auto) 0.02 K/uL (0-0.2); Basophils % (auto) 0.2 %; Eosinophils # (auto) 0.03 K/uL (0-0.5); Eosinophils % (auto) 0.4 %; Hematocrit (blood only) 26.8 % (37-47); Hemoglobin 7.9 g/dL (12.0-16.0); Immature Granulocytes # (auto) 0.08 K/uL (0.00-0.02); Lymphocytes # (auto) 1.14 K/uL (1.2-3.4); Mean Corpuscular Hemoglobin 22.3 pg (25-34); Mean Corpuscular Hgb Conc 29.5 g/dL (32-36); Mean Corpuscular Volume 75.7 fL (80-100); Mean Platelet Volume 10.1 fL (7.4-10.4); Monocytes # (auto) 1.07 K/uL (0.11-0.59); Monocytes % (auto) 13.1 %; Neutrophils # (auto) 5.81 K/uL (1.4-6.5); Neutrophils % (auto) 71.3 %; Nucleated RBC # (auto) 0.08 K/uL (0-0); Platelet Count 343 K/uL (130-400); RDW Coefficient of Variation 18.6 % (11.5-14.5); RDW Standard Deviation 52.3 fL (36.4-46.3); Red Blood Count 3.54 M/uL (4.2-5.4); White Blood Count 8.15 K/uL (4.8-10.8)
[2021-06-29 06:40] LABS: INR 1.2 (0.9-1.1)
[2021-06-29 06:58] LABS: Anisocytosis Present; Hypochromasia Present; Polychromasia 1+
[2021-06-29 07:08] LABS: BUN Creatinine Ratio 20.2 (10-20); Calcium 8.4 mg/dl (8.5-10.1); Creatinine Clr Calc Pharmacy 45.8 ml/min; Est GFR (African American) 69.5 ml/min; Est GFR (Non-African American) 59.9 ml/min; Potassium 4.1 mmol/L (3.5-5.1)
[2021-06-29] MEDS: ACETAMINOPHEN 325 MG TAB PO SCH ×2 (07:56→21:02)
[2021-06-29] MEDS: FERROUS SULFATE 325 MG TAB PO SCH ×2 (07:56→17:31)
[2021-06-29] MEDS: ASPIRIN 81 MG ECTAB PO SCH (07:57)
[2021-06-29] MEDS: VERAPAMIL HCL 180 MG TABCR PO SCH ×2 (07:57→21:02)
[2021-06-29] MEDS: FUROSEMIDE 40 MG in SYRINGE 0 ML IV SCH ×2 (07:58→21:02)
[2021-06-29] MEDS: cefUROXime axetil 250 MG TABLET PO SCH ×2 (07:58→21:02)
[2021-06-29] MEDS: DOXYCYCLINE HYCLATE 100 MG CAP PO SCH (07:58)
[2021-06-29] MEDS: CYANOCOBALAMIN 500 MCG TABLET (VITAMIN B-12) PO SCH (07:58)
[2021-06-29] MEDS: PANTOprazole 40 MG in SYRINGE 0 ML IV SCH ×2 (07:58→21:02)
[2021-06-29] MEDS: POTASSIUM CHLORIDE CRTAB 20 MEQ TABCR PO SCH (07:58)
[2021-06-29] MEDS: SPIRONOLACTONE 25 MG TAB PO SCH (07:58)
--- NOTE | 2021-06-29 09:29 | Hospitalist Progress Note ---
Date of Service June 29, 2021 Assessment & Plan (1) Acute on chronic combined systolic and diastolic congestive heart failure: (2) Anemia: Plan: ASSESSMENT AND PLAN: This is an 81-year-old female who presents with shortness of breath . 1. Shortness of breath: Most likely secondary to [id number] systolic and diastolic congestive heart failure. The patient has EF of 50% and also the patient has non-rheumatic tricuspid valve insufficiency. -- diuresing gradually negative 2.5 L so far -- continue Lasix 40mg IV q12h continue home spironolactone --monitor crea -- Lock Expert on board 2. Iron Deficiency Anemia: Possible GI Bleed Chronic Coumadin use for A fib -- Hg 6.8 on admission -- The patient is on Coumadin. INR 3.4. The patient has no obvious signs of bleeding -- 2 units PRBC given -- Hg up to 7.9 -- no overt signs of GI bleed -- for EGD Wednesday Protonix IV BID -- INR 3.4 on admission, reversed with Vit K now 1.8 hold Coumadin 3. History of mild chronic obstructive pulmonary disease -- continue Nebs 4. 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 5. Chronic kidney disease stage III: -- monitor 6. History of left bundle-branch block. 7. History of atrial fibrillation, persistent: Continue her home medication of verapamil 180 mg b.i.d., holding Coumadin 8. E coli uti. -- transition to Cefuroxime- ABx day 12/11 9. Deep venous thrombosis prophylaxis: sequential compression devices. Disposition will need PT/OT evaluation Admission and Anticipated Discharge Date Admission Date: June 26, 2021 Subjective ff up for CHF, anemia, etc seen resting in bed, sitting up comfortable states breathing is better today denies cough, chest pain, palpitations, dizziness no other symptoms Review of Systems Review of Systems: all noted and negative except for above Physical Exam Physical Exam: General- oriented x 3, not in distress, speaks in sentences with no effort or accessory muscle use Eyes- anicteric Neck- no JVD Lungs- clear breath sounds bilaterally, no rales/wheezes Heart- normal rate, regular rhythm; no murmurs Abdomen- normal bowel sounds, nondistended, soft, nontender Extremities- mild lower leg edema, no calf tenderness Neuro- alert, oriented x 3; no gross focal neurologic deficits Skin- warm & dry Results & Data Results & Data ([facility]) Vital Signs (Past 12 Hours) Vital Signs Temp Pulse Resp BP Pulse Ox 06/29/21 07:12 36.7 C 84 20 106/61 93 06/29/21 03:41 36.9 C 77 19 102/58 L 92 06/28/21 23:18 36.4 C L 82 18 100/56 L 96 all noted and reviewed including below (1) Anemia Anemia type: unspecified type Qualified Code(s): D64.9 - Anemia, unspecified
[2021-06-29] MEDS: CHOLECALCIFEROL 1,000 UNITS 25 MCG TAB PO SCH (10:25)
[2021-06-29] MEDS ORDERED: POLYETHYLENE (MIRALAX) 17 GM PACK PO PRN (15:29)
--- NOTE | 2021-06-29 20:07 | Electrocardiogram Report ---
Test Reason : Blood Pressure : / mmHG Vent. Rate : 078 BPM Atrial Rate : 085 BPM P-R Int : 000 ms QRS Dur : 138 ms QT Int : 400 ms P-R-T Axes : 000 -54 117 degrees QTc Int : 456 ms Poor data quality, interpretation may be adversely affected Atrial fibrillation Left bundle branch block Abnormal ECG When compared with ECG of 26-JUN-2021 18:13, No significant change was found Confirmed by Charlie Nguyễn ([id number]) on 06/29/2021 8:06:56 PM Referred By: REFERRED SELF Confirmed By:Charlie Nguyễn
[2021-06-29] MEDS: POLYETHYLENE (MIRALAX) 17 GM PACK PO PRN (21:03)
[2021-06-30 07:16] LABS: INR 1.2 (0.9-1.1); Prothrombin Time 11.6 Seconds (9.0-12.0)
[2021-06-30 07:19] LABS: Basophils # (auto) 0.02 K/uL (0-0.2); Basophils % (auto) 0.3 %; Eosinophils # (auto) 0.06 K/uL (0-0.5); Eosinophils % (auto) 0.8 %; Hematocrit (blood only) 28.4 % (37-47); Hemoglobin 8.1 g/dL (12.0-16.0); Immature Granulocytes # (auto) 0.09 K/uL (0.00-0.02); Immature Granulocytes % (auto) 1.2 %; Lymphocytes # (auto) 1.24 K/uL (1.2-3.4); Lymphocytes % (auto) 16.8 %; Mean Corpuscular Hemoglobin 22.1 pg (25-34); Mean Corpuscular Hgb Conc 28.5 g/dL (32-36); Mean Corpuscular Volume 77.6 fL (80-100); Mean Platelet Volume 10.3 fL (7.4-10.4); Monocytes # (auto) 0.86 K/uL (0.11-0.59); Monocytes % (auto) 11.7 %; Neutrophils # (auto) 5.09 K/uL (1.4-6.5); Neutrophils % (auto) 69.2 %; Nucleated RBC # (auto) 0.02 K/uL (0-0); Nucleated RBC % (auto) 0.3 %; Platelet Count 358 K/uL (130-400); RDW Coefficient of Variation 19.1 % (11.5-14.5); RDW Standard Deviation 53.5 fL (36.4-46.3); Red Blood Count 3.66 M/uL (4.2-5.4); White Blood Count 7.36 K/uL (4.8-10.8)
[2021-06-30 07:31] LABS: BUN Creatinine Ratio 14.1 (10-20); Calcium 8.4 mg/dl (8.5-10.1); Est GFR (African American) 82.8 ml/min; Est GFR (Non-African American) 71.4 ml/min; Potassium 3.8 mmol/L (3.5-5.1)
--- NOTE | 2021-06-30 08:28 | Anesthesiology Consultation ---
Date of Service June 30, 2021 Assessment & Plan (1) Encounter for pre-operative examination: Chart Review Chart Review: Acceptable Risk for Surgery and Patient NOT seen in Pre Admission Testing Consults Requested none History Surgery Operation Date: 06/30/21 16:30 Proposed Procedures p Esophagogastroduodenoscopy Dr Huang Encinas MD Height/Weight Height: 4 ft 11 in Weight: 86.7 kg Allergies Allergy/AdvReac Type Severity Reaction Status Date / Time shellfish derived Allergy Severe Anaphylaxis Verified 06/29/21 15:37 latex Allergy Intermediate Rash Verified 06/29/21 15:37 Penicillins Allergy Intermediate Hives Verified 06/29/21 15:37 Sulfa (Sulfonamide Allergy Intermediate Hives Verified 06/29/21 15:37 Antibiotics) Medications Home Medications Medication Instructions Recorded Confirmed Last Taken acetaminophen 325 mg tablet 650 mg PO BID 06/26/21 06/26/21 Unknown (Tylenol) albuterol sulfate 2.5 mg INHALATION Q4H PRN 06/26/21 06/26/21 Unknown albuterol sulfate 90 mcg/actuation 2 puff INHALATION Q6 PRN 06/26/21 06/26/21 Unknown aerosol inhaler aspirin 81 mg tablet,delayed 81 mg PO DAILY 06/26/21 06/26/21 Unknown release calcium carbonate 600 mg(1,500 1 tab PO BID 06/26/21 06/26/21 Unknown mg)-vitamin D3 800 unit chewable tablet (Caltrate 600 plus D) cholecalciferol (vitamin D3) 50 50 mcg PO DAILY 06/26/21 06/26/21 Unknown mcg (2,000 unit) tablet (Vitamin D3) cyanocobalamin (vitamin B-12) 1,000 mcg PO DAILY 06/26/21 06/26/21 Unknown 1,000 mcg tablet (Vitamin B-12) furosemide 20 mg tablet 20 mg PO BID 06/26/21 06/26/21 Unknown omeprazole 40 mg capsule,delayed 40 mg PO BID 06/26/21 06/26/21 Unknown release potassium chloride 20 mEq 20 meq PO DAILY 06/26/21 06/26/21 Unknown tablet,extended release(part/cryst) spironolactone 25 mg tablet 25 mg PO DAILY 06/26/21 06/26/21 Unknown torsemide 100 mg tablet 100 mg PO DAILY PRN 06/26/21 06/26/21 Unknown verapamil 180 mg 24 hr 180 mg PO BID 06/26/21 06/26/21 Unknown capsule,extended release warfarin 3 mg tablet 1.5 - 3 mg PO UD 06/26/21 06/26/21 Unknown Active Medications Generic Name Dose Route Start Last Admin Trade Name Freq PRN Reason Stop Dose Admin Acetaminophen 650 mg 06/27/21 01:03 06/29/21 02:52 Acetaminophen 325 Mg Tab PO 07/27/21 01:02 650 mg Q4H PRN Administration Pain or Fever Acetaminophen 650 mg 06/27/21 01:30 06/29/21 21:02 Acetaminophen 325 Mg Tab PO 07/27/21 01:29 650 mg BID CHIKI Administration Aspirin 81 mg 06/27/21 09:00 06/29/21 07:57 Aspirin 81 Mg Ectab PO 07/27/21 08:59 81 mg DAILY CHIKI Administration Cefuroxime Axetil 250 mg 06/28/21 09:00 06/29/21 21:02 Cefuroxime Axetil 250 Mg Tablet PO 07/03/21 08:59 250 mg BID CHIKI Administration Cyanocobalamin 1,000 mcg 06/27/21 09:00 06/29/21 07:58 Cyanocobalamin 500 Mcg Tablet (Vitamin B-12) PO 07/27/21 08:59 1,000 mcg DAILY CHIKI Administration Ferrous Sulfate 325 mg 06/28/21 17:00 06/29/21 17:31 Ferrous Sulfate 325 Mg Tab PO 07/28/21 16:59 325 mg BIDM CHIKI Administration Furosemide 40 mg/ Syringe 4 mls @ 4 mls/min 06/27/21 09:00 06/29/21 21:02 IV 07/27/21 08:59 4 mls/min BID CHIKI Administration Pantoprazole Sodium 40 mg/ 10 mls @ 5 mls/min 06/27/21 21:00 06/29/21 21:02 Syringe IV 07/27/21 20:59 5 mls/min BID CHIKI Administration Levalbuterol HCl 1.25 mg 06/27/21 01:03 06/28/21 15:47 Levalbuterol Hcl 1.25 Mg/3 Ml Neb NEB 07/27/21 01:02 1.25 mg Q2R PRN Administration Shortness Of Breath Or Wheezing Polyethylene Glycol 17 gm 06/27/21 01:03 06/29/21 21:03 Polyethylene (Miralax) 17 Gm Pack PO 07/27/21 01:02 17 gm DAILY PRN Administration Constipation Potassium Chloride 20 meq 06/27/21 09:00 06/29/21 07:58 Potassium Chloride Crtab 20 Meq Tabcr PO 07/27/21 08:59 20 meq DAILY CHIKI Administration Spironolactone 25 mg 06/27/21 09:00 06/29/21 07:58 Spironolactone 25 Mg Tab PO 07/27/21 08:59 25 mg DAILY CHIKI Administration Verapamil HCl 180 mg 06/27/21 01:30 06/29/21 21:02 Verapamil Hcl 180 Mg Tabcr PO 07/27/21 01:29 180 mg BID CHIKI Administration Vitamin D 2,000 units 06/27/21 09:00 06/29/21 10:25 Cholecalciferol 1,000 Units 25 Mcg Tab PO 07/27/21 08:59 2,000 units DAILY CHIKI Administration Past Medical History Medical History Atrial fibrillation Breast cancer COPD (chronic obstructive pulmonary disease) Past Surgical History Surgical History History of abdominal hysterectomy History of cholecystectomy History of lumbar surgery History of mastectomy Social History Smoking Status: Former smoker Do You Dip or Chew Tobacco: No Hx Alcohol Use: No Hx Substance Use: No substance use type: does not use Physical Exam Vital Signs Last Vital Signs Temp 36.8 C 06/30/21 06:41 Pulse 75 06/30/21 06:41 Resp 18 06/30/21 06:41 BP 117/58 L 06/30/21 06:41 Pulse Ox 94 06/30/21 06:41 Testing Laboratory Results 06/30/21 05:59 06/30/21 05:59 PT 11.6 Seconds (9.0-12.0) 06/30/21 05:59 INR 1.2 (0.9-1.1) H 06/30/21 05:59 APTT 41.8 Seconds (21.0-31.0) H 06/26/21 18:14 Urine Color Yellow 06/26/21 21:30 Urine Appearance Cloudy (Clear) A 06/26/21 21:30 Urine pH 5.5 (4.5-7.5) 06/26/21 21:30 Ur Specific [place] 1.010 (1.000-1.030) 06/26/21 21:30 Urine Protein Negative (Negative) 06/26/21 21:30 Urine Glucose (UA) Negative (Negative) 06/26/21 21:30 Urine Ketones Negative (Negative) 06/26/21 21:30 Urine Nitrite Positive (Negative) A 06/26/21 21:30 Ur Leukocyte Esterase 1+ (Negative) H 06/26/21 21:30 Urine WBC (Auto) 10-30 /hpf (0-5) H 06/26/21 21:30 Urine RBC (Auto) 0-4 /hpf (0-4) 06/26/21 21:30 U Hyaline Cast (Auto) 1-5 /lpf (0-5) 06/26/21 21:30 U Epithel Cells (Auto) >30 /lpf (0-5) H 06/26/21 21:30 Urine Bacteria (Auto) 2+ (Negative) H 06/26/21 21:30 Blood Type O Negative 06/26/21 18:52 Antibody Screen NEGATIVE 06/26/21 18:52 06/26/21 18:52 Aerobic Blood Culture - Preliminary Blood No growth in Aerobic bottle after 48 hours. Anaerobic Blood Culture - Preliminary No growth in Anaerobic bottle after 48 hours. 06/26/21 18:14 Aerobic Blood Culture - Preliminary Blood No growth in Aerobic bottle after 48 hours. Anaerobic Blood Culture - Preliminary No growth in Anaerobic bottle after 48 hours. 06/26/21 21:30 Urine Culture - Final Urine,Clean Catch Escherichia coli Electrocardiogram Date: 06/28/21 Findings: + AFIB @ (68) Left bundle branch block Abnormal ECG When compared with ECG of 26-JUN-2021 18:13, No significant change was found Chest X-Ray Date: 06/28/21 IMPRESSION: 1. Mild interstitial pulmonary edema, improved since prior exam. 2. Cardiomegaly. Suspected trace bilateral pleural effusions.
--- NOTE | 2021-06-30 08:36 | History & Physical Report ---
Date of Service June 30, 2021 Assessment & Plan (1) GI bleed: Plan: stable for EGD Admission and Anticipated Discharge Date Admission Date: June 26, 2021 History of Present Illness Chief Complaint: anemia/GI bleed Primary Care Provider: Filipe Alves MD Pt with anemia and GI bleed for EGD Allergies Allergy/AdvReac Type Severity Reaction Status Date / Time shellfish derived Allergy Severe Anaphylaxis Verified 06/29/21 15:37 latex Allergy Intermediate Rash Verified 06/29/21 15:37 Penicillins Allergy Intermediate Hives Verified 06/29/21 15:37 Sulfa (Sulfonamide Allergy Intermediate Hives Verified 06/29/21 15:37 Antibiotics) Home Medications Medication Instructions Recorded Confirmed Type acetaminophen 325 mg tablet 650 mg PO BID 06/26/21 06/26/21 History (Tylenol) albuterol sulfate 2.5 mg INHALATION Q4H PRN 06/26/21 06/26/21 History albuterol sulfate 90 mcg/actuation 2 puff INHALATION Q6 PRN 06/26/21 06/26/21 History aerosol inhaler aspirin 81 mg tablet,delayed 81 mg PO DAILY 06/26/21 06/26/21 History release calcium carbonate 600 mg(1,500 1 tab PO BID 06/26/21 06/26/21 History mg)-vitamin D3 800 unit chewable tablet (Caltrate 600 plus D) cholecalciferol (vitamin D3) 50 50 mcg PO DAILY 06/26/21 06/26/21 History mcg (2,000 unit) tablet (Vitamin D3) cyanocobalamin (vitamin B-12) 1,000 mcg PO DAILY 06/26/21 06/26/21 History 1,000 mcg tablet (Vitamin B-12) furosemide 20 mg tablet 20 mg PO BID 06/26/21 06/26/21 History omeprazole 40 mg capsule,delayed 40 mg PO BID 06/26/21 06/26/21 History release potassium chloride 20 mEq 20 meq PO DAILY 06/26/21 06/26/21 History tablet,extended release(part/cryst) spironolactone 25 mg tablet 25 mg PO DAILY 06/26/21 06/26/21 History torsemide 100 mg tablet 100 mg PO DAILY PRN 06/26/21 06/26/21 History verapamil 180 mg 24 hr 180 mg PO BID 06/26/21 06/26/21 History capsule,extended release warfarin 3 mg tablet 1.5 - 3 mg PO UD 06/26/21 06/26/21 History Past Med/Surg History Medical History Atrial fibrillation Breast cancer COPD (chronic obstructive pulmonary disease) Surgical History History of abdominal hysterectomy History of cholecystectomy History of lumbar surgery History of mastectomy Social History Smoking Status: Former smoker Second Hand Exposure: No; Do You Dip or Chew Tobacco: No; Tobacco Cessation Education Requested by Patient: No Hx Alcohol Use: No Hx Substance Use: No Preferred Language: Wolof Communication Ability: Effective Bale Piler Required: No Beliefs That Will Affect Care: None marital status: / Current Living Situation: Alone How many Children do You have: 4 Other Information That Helps Us Care for You: No Feels Safe at Home: Yes Assistive Devices: Cane, Glasses and Walker Physical Exam Constitutional: WD/WN, vitals as above Respiratory: normal respiratory effort, lungs clear to auscultation Cardiovascular: RRR, no murmur, no edema Gastrointestinal (Abdomen): normal bowel sounds, soft, nontender, no hepatosplenomegaly Results & Data ([facility]) Vital Signs (Past 12 Hours) Vital Signs Temp Pulse Pulse Resp BP Pulse Ox 06/30/21 08:00 72 06/30/21 06:41 36.8 C 75 18 117/58 L 94 06/30/21 03:59 37.1 C 66 17 122/70 96 06/29/21 23:03 36.6 C 78 16 101/68 98 Code Status & VTE Plan VTE Prophylaxis Plan VTE Prophylaxis will be ordered: Yes
[2021-06-30] MEDS ORDERED: PROPOFOL IV EMULSION 10 MG/ML 20 ML VIAL IV ONE (09:20)
[2021-06-30] MEDS ORDERED: LIDOCAINE 2% 2 ML VIAL/AMP(20MG/ML) INFIL ONE (09:20)
--- NOTE | 2021-06-30 09:31 | GI REPORT ---
Patient Name: Pinky Mckeon Procedure Date: 06/30/2021 9:07 AM Date of : 1940 Admit Type: Inpatient Age: 81 Gender: Female Attending MD: Tavares Encinas MD Procedure: Upper GI endoscopy Providers: Tavares Encinas MD Referring MD: Dave Hilton Indications: Acute post hemorrhagic anemia, Recent gastrointestinal bleeding Medicines: See the Anesthesia note for documentation of the administered medications Complications: No immediate complications. Estimated Blood Loss: Estimated blood loss: none. Procedure: Pre-Anesthesia Assessment: - Prior to the procedure, a History and Physical was performed, and patient medications, allergies and sensitivities were reviewed. The patient's tolerance of previous anesthesia was reviewed. - The risks and benefits of the procedure and the sedation options and risks were discussed with the patient. All questions were answered and informed consent was obtained. - Patient identification and proposed procedure were verified prior to the procedure by the physician and the nurse. The procedure was verified in the pre-procedure area. - Pre-procedure physical examination revealed no contraindications to sedation. - After reviewing the risks and benefits, the patient was deemed in satisfactory condition to undergo the procedure. After obtaining informed consent, the endoscope was passed under direct vision. Throughout the procedure, the patient's blood pressure, pulse, and oxygen saturations were monitored continuously. The Scope was introduced through the mouth, and advanced to the third part of duodenum. The upper GI endoscopy was accomplished without difficulty. The patient tolerated the procedure well. Findings: The esophagus was normal. A large hiatal hernia was present. Multiple small semi-sessile polyps with no stigmata of recent bleeding were found in the gastric fundus. The examined duodenum was normal. The cardia and gastric fundus were normal on retroflexion. Impression: - Normal esophagus. - Large hiatal hernia. - Multiple benign appearing gastric polyps. - Normal examined duodenum. - No specimens collected. Recommendation: - Return patient to [facility] for [facility] care. - Patient should stay on PPI indefinitly. Tavares Encinas M.D. Tavares Encinas MD 06/30/2021 9:31:04 AM This report has been signed electronically. Note Initiated On: 06/30/2021 9:07 AM Number of Addenda: 0 I attest to the content of the Intraoperative Record and orders documented therein, exceptions below {[id number]}
--- NOTE | 2021-06-30 09:43 | Anesthesiology Progress Note ---
Date of Service June 30, 2021 Anesthesia Post Procedure Vital Signs Vital Signs: Temp Pulse Pulse Resp BP Pulse Ox Pulse Ox 06/30/21 09:34 90 18 142/74 H 94 06/30/21 09:19 36.5 C 91 H 18 124/64 95 06/30/21 08:47 36.6 C 99 H 20 132/81 96 06/30/21 08:00 72 06/30/21 06:41 36.8 C 75 18 117/58 L 94 06/30/21 03:59 37.1 C 66 17 122/70 96 06/29/21 23:03 36.6 C 78 16 101/68 98 06/29/21 19:07 36.9 C 83 17 121/70 95 06/29/21 18:00 95 06/29/21 16:00 36.6 C 76 22 120/68 96 06/29/21 11:11 36.9 C 80 16 109/56 L 92 Transfer of Care Handoff Completed per policy Notes Mental Status: alert / awake / arousable and participated in evaluation Nausea / Vomiting: adequately controlled Pain: adequately controlled Airway Patency, RR, SpO2: stable & adequate BP & HR: stable & adequate Hydration State: stable & adequate Anesthetic Complications: no major complications apparent and Pt Satisfied with anesthetic care
[2021-06-30] MEDS: VERAPAMIL HCL 180 MG TABCR PO SCH ×2 (10:33→20:35)
[2021-06-30] MEDS: FUROSEMIDE 40 MG in SYRINGE 0 ML IV SCH (10:33)
[2021-06-30] MEDS: ASPIRIN 81 MG ECTAB PO SCH (10:34)
[2021-06-30] MEDS: CHOLECALCIFEROL 1,000 UNITS 25 MCG TAB PO SCH (10:34)
[2021-06-30] MEDS: SPIRONOLACTONE 25 MG TAB PO SCH (10:34)
[2021-06-30] MEDS: cefUROXime axetil 250 MG TABLET PO SCH ×2 (10:34→20:52)
[2021-06-30] MEDS: CYANOCOBALAMIN 500 MCG TABLET (VITAMIN B-12) PO SCH (10:34)
[2021-06-30] MEDS: FERROUS SULFATE 325 MG TAB PO SCH ×2 (10:34→16:25)
[2021-06-30] MEDS: PANTOprazole 40 MG in SYRINGE 0 ML IV SCH (10:35)
[2021-06-30] MEDS: ACETAMINOPHEN 325 MG TAB PO SCH ×2 (10:41→20:52)
[2021-06-30] MEDS: POTASSIUM CHLORIDE CRTAB 20 MEQ TABCR PO SCH (10:41)
--- NOTE | 2021-06-30 14:06 | Cardiology Progress Note ---
Date of Service June 30, 2021 Assessment & Plan (1) Acute on chronic combined systolic and diastolic congestive heart failure: (2) Anemia: (3) Hypertensive heart disease: (4) Valvular heart disease: (5) Atrial fibrillation, permanent: (6) Pulmonary HTN: Plan: Patient has no new cardiac complaints today. Her labs today indicates she remains anemic. Endoscopy was negative for active bleeding. I am going to stop her IV diuretics and switch her back to her home Lasix at 20 mg twice daily. Admission and Anticipated Discharge Date Admission Date: June 26, 2021 Subjective The patient had an EGD today. Negative findings except for a hiatal hernia. Review of Systems Review of Systems: Review of Systems: See HPI for pertinent positives. All other 10 point review of systems are negative. Physical Exam Physical Exam: General: no acute distress and stated age Head: normocephalic, no masses, lesions, tenderness or abnormalities Eyes: conjunctiva are pink and non-injected, sclera clear Neck: supple, no adenopathy, no bruits, normal jugular venous pulse, no hepatojugular reflux Chest: normal shape and normal respiratory effort Lungs: clear to auscultation and percussion Cardiac Exam: - regular rate & rhythm, no murmurs gallops or rubs - normal S1, normal S2 Pulses: 2(+) throughout Abdomen: abdomen soft, non-tender, no abnormal masses and no hepatosplenomegaly Musculoskeletal: no gait disturbance, no joint inflammation, no deforming arthritis Extremities: no edema and no cyanosis Neuro: grossly normal exam Results & Data [facility]) Vital Signs (Past 12 Hours) Vital Signs Temp Pulse Pulse Pulse Resp BP Pulse Ox 06/30/21 11:57 36.5 C 72 96 H 18 112/61 96 06/30/21 09:49 81 18 131/74 94 06/30/21 09:34 90 18 142/74 H 94 06/30/21 09:19 36.5 C 91 H 18 124/64 95 06/30/21 08:47 36.6 C 99 H 20 132/81 96 06/30/21 08:00 72 06/30/21 06:41 36.8 C 75 18 117/58 L 94 06/30/21 03:59 37.1 C 66 17 122/70 96 Laboratory Results Laboratory Results - last 24 hr 06/30/21 06/30/21 06/30/21 05:59 05:59 05:59 WBC 7.36 RBC 3.66 L Hgb 8.1 L Hct 28.4 L MCV 77.6 L MCH 22.1 L MCHC 28.5 L RDW Std Deviation 53.5 H RDW Coeff of Valerie 19.1 H Plt Count 358 MPV 10.3 Immature Gran % (Auto) 1.2 Neut % (Auto) 69.2 Lymph % (Auto) 16.8 Leake % (Auto) 11.7 Eos % (Auto) 0.8 Baso % (Auto) 0.3 Neut # (Auto) 5.09 Lymph # (Auto) 1.24 Leake # (Auto) 0.86 H Eos # (Auto) 0.06 Baso # (Auto) 0.02 Immature Gran # (Auto) 0.09 H Absolute Nucleated RBC 0.02 H Nucleated RBC % (auto) 0.3 PT 11.6 INR 1.2 H Sodium 137 Potassium 3.8 Chloride 100 Carbon Dioxide 31 Anion Gap 6.0 BUN 11 Creatinine 0.77 Est Cr Clr Drug Dosing 53.0 Est GFR ( Amer) 82.8 Est GFR (Non-Af Amer) 71.4 BUN/Creatinine Ratio 14.1 Glucose 79 Calcium 8.4 L Medications Administered Current Inpatient Medications Acetaminophen (Acetaminophen 325 Mg Tab) 650 mg PO Q4H PRN PRN Reason: Pain or Fever Stop: 07/27/21 01:02 Last Admin: 06/29/21 02:52 Dose: 650 mg Documented by: Acetaminophen (Acetaminophen 325 Mg Tab) 650 mg PO BID [facility] Stop: 07/27/21 01:29 Last Admin: 06/30/21 10:41 Dose: 650 mg Documented by: Albuterol (Albuterol Hfa 8 Gm Inhaler) 2 puffs INH Q6R PRN PRN Reason: Shortness Of Breath Or Wheezin Stop: 07/27/21 01:02 Aspirin (Aspirin 81 Mg Ectab) 81 mg PO DAILY [facility] Stop: 07/27/21 08:59 Last Admin: 06/30/21 10:34 Dose: 81 mg Documented by: Cefuroxime Axetil (Cefuroxime Axetil 250 Mg Tablet) 250 mg PO BID [facility] Stop: 07/03/21 08:59 Last Admin: 06/30/21 10:34 Dose: 250 mg Documented by: Cyanocobalamin (Cyanocobalamin 500 Mcg Tablet (Vitamin B-12)) 1,000 mcg PO DAILY [facility] Stop: 07/27/21 08:59 Last Admin: 06/30/21 10:34 Dose: 1,000 mcg Documented by: Ferrous Sulfate (Ferrous Sulfate 325 Mg Tab) 325 mg PO BIDM [facility] Stop: 07/28/21 16:59 Last Admin: 06/30/21 10:34 Dose: 325 mg Documented by: Pantoprazole Sodium 40 mg/ (Syringe) 10 mls @ 5 mls/min IV BID [facility] Stop: 07/27/21 20:59 Last Admin: 06/30/21 10:35 Dose: 5 mls/min Documented by: Levalbuterol HCl (Levalbuterol Hcl 1.25 Mg/3 Ml Neb) 1.25 mg NEB Q2R PRN PRN Reason: Shortness Of Breath Or Wheezing Stop: 07/27/21 01:02 Last Admin: 06/28/21 15:47 Dose: 1.25 mg Documented by: Nitroglycerin (Nitroglycerin Sl 0.4 Mg/Tab Tab) 0.4 mg SL UD PRN PRN Reason: Chest Pain Stop: 07/27/21 01:02 Ondansetron HCl (Ondansetron Inj 2 Mg/Ml 2 Ml Vial) 4 mg IV Q6H PRN PRN Reason: Nausea Stop: 07/27/21 01:02 Polyethylene Glycol (Polyethylene (Miralax) 17 Gm Pack) 17 gm PO DAILY PRN PRN Reason: Constipation Stop: 07/27/21 01:02 Last Admin: 06/29/21 21:03 Dose: 17 gm Documented by: Polyethylene Glycol (Polyethylene (Miralax) 17 Gm Pack) 17 gm PO DAILY PRN PRN Reason: Constipation Stop: 07/29/21 15:28 Potassium Chloride (Potassium Chloride Crtab 20 Meq Tabcr) 20 meq PO DAILY [facility] Stop: 07/27/21 08:59 Last Admin: 06/30/21 10:41 Dose: 20 meq Documented by: Spironolactone (Spironolactone 25 Mg Tab) 25 mg PO DAILY [facility] Stop: 07/27/21 08:59 Last Admin: 06/30/21 10:34 Dose: 25 mg Documented by: Torsemide (Torsemide 100 Mg Tab) 100 mg PO QAM [facility] Stop: 07/31/21 08:59 Verapamil HCl (Verapamil Hcl 180 Mg Tabcr) 180 mg PO BID [facility] Stop: 07/27/21 01:29 Last Admin: 06/30/21 10:33 Dose: 180 mg Documented by: Vitamin D (Cholecalciferol 1,000 Units 25 Mcg Tab) 2,000 units PO DAILY [facility] Stop: 07/27/21 08:59 Last Admin: 06/30/21 10:34 Dose: 2,000 units Documented by: (1) Anemia Anemia type: unspecified type Qualified Code(s): D64.9 - Anemia, unspecified
[2021-06-30] MEDS: FUROSEMIDE 20 MG TAB PO SCH (16:26)
--- NOTE | 2021-06-30 16:58 | Hospitalist Progress Note ---
Date of Service June 30, 2021 Assessment & Plan (1) Acute on chronic combined systolic and diastolic congestive heart failure: (2) Anemia: Plan: ASSESSMENT AND PLAN: This is an 81-year-old female who presents with shortness of breath . 1. Shortness of breath: Most likely secondary to [id number] systolic and diastolic congestive heart failure. The patient has EF of 50% and also the patient has non-rheumatic tricuspid valve insufficiency. -- diuresing gradually negative 7 L so far -- transition from Lasix 40mg IV q12h to usual Lasisx 20mg po BID continue home spironolactone --monitor crea -- Orthodontist Assistant on board 2. Iron Deficiency Anemia: Possible GI Bleed Chronic Coumadin use for A fib -- Hg 6.8 on admission -- The patient is on Coumadin. INR 3.4. The patient has no obvious signs of bleeding -- 2 units PRBC given -- Hg up to 7.9 -- no overt signs of GI bleed -- s/p EGD 06/30: large hiatal hernia, multiple gastric polyps with no stigmata of bleeding change to Protonix PO -- INR 3.4 on admission, reversed with Vit K now 1.8 may resume coumadin per GI- hold for now as Colonoscopy being discussed 3. History of mild chronic obstructive pulmonary disease -- continue Nebs 4. 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 5. Chronic kidney disease stage III: -- monitor 6. History of left bundle-branch block. 7. History of atrial fibrillation, persistent: Continue her home medication of verapamil 180 mg b.i.d., holding Coumadin 8. E coli uti. -- transition to Cefuroxime- ABx day 01/13 9. Deep venous thrombosis prophylaxis: sequential compression devices. Disposition will need PT/OT evaluation Admission and Anticipated Discharge Date Admission Date: June 26, 2021 Subjective Follow-up for anemia, CHF, etc. Seen sitting up in bed, comfortable, not in distress Status post EGD this morning States she feels fine overall Denies chest pain, shortness of breath, dizziness, palpitations, abdominal pain, nausea vomiting Denies having melena or hematochezia No other symptoms Inquiring if she can have colonoscopy while admitted to the hospital Review of Systems Review of Systems: all noted and negative except for above Physical Exam Physical Exam: General- oriented x 3, not in distress, speaks in sentences with no effort or accessory muscle use Eyes- anicteric Neck- no JVD Lungs- clear BS, no crackles or wheezing bilaterally Heart- normal rate, regular rhythm; no murmurs Abdomen- normal bowel sounds, nondistended, soft, nontender Extremities-mild lower leg edema, no calf tenderness Neuro- alert, oriented x 3; no gross focal neurologic deficits Skin- warm & dry Results & Data Results & Data ([facility]) Vital Signs (Past 12 Hours) Vital Signs Temp Pulse Pulse Pulse Resp BP Pulse Ox 06/30/21 16:00 72 06/30/21 11:57 36.5 C 72 96 H 18 112/61 96 06/30/21 09:49 81 18 131/74 94 06/30/21 09:34 90 18 142/74 H 94 06/30/21 09:19 36.5 C 91 H 18 124/64 95 06/30/21 08:47 36.6 C 99 H 20 132/81 96 06/30/21 08:00 72 06/30/21 06:41 36.8 C 75 18 117/58 L 94 all noted and reviewed including below (1) Anemia Anemia type: unspecified type Qualified Code(s): D64.9 - Anemia, unspecified
[2021-06-30] MEDS: POLYETHYLENE (MIRALAX) 17 GM PACK PO PRN (20:51)
[2021-07-01 06:35] LABS: Basophils # (auto) 0.02 K/uL (0-0.2); Basophils % (auto) 0.3 %; Eosinophils # (auto) 0.13 K/uL (0-0.5); Eosinophils % (auto) 1.9 %; Hematocrit (blood only) 29.1 % (37-47); Hemoglobin 8.5 g/dL (12.0-16.0); Immature Granulocytes # (auto) 0.12 K/uL (0.00-0.02); Immature Granulocytes % (auto) 1.8 %; Lymphocytes % (auto) 16.4 %; Mean Corpuscular Hemoglobin 22.6 pg (25-34); Mean Corpuscular Hgb Conc 29.2 g/dL (32-36); Mean Corpuscular Volume 77.4 fL (80-100); Mean Platelet Volume 10.6 fL (7.4-10.4); Monocytes # (auto) 0.76 K/uL (0.11-0.59); Monocytes % (auto) 11.3 %; Neutrophils # (auto) 4.59 K/uL (1.4-6.5); Neutrophils % (auto) 68.3 %; Platelet Count 353 K/uL (130-400); RDW Coefficient of Variation 19.9 % (11.5-14.5); RDW Standard Deviation 53.9 fL (36.4-46.3); Red Blood Count 3.76 M/uL (4.2-5.4); White Blood Count 6.72 K/uL (4.8-10.8)
[2021-07-01 06:46] LABS: INR 1.1 (0.9-1.1); Prothrombin Time 11.4 Seconds (9.0-12.0)
[2021-07-01 07:21] LABS: BUN Creatinine Ratio 16.5 (10-20); Calcium 8.4 mg/dl (8.5-10.1); Creatinine Clr Calc Pharmacy 50.7 ml/min; Est GFR (African American) 80.2 ml/min; Est GFR (Non-African American) 69.2 ml/min
[2021-07-01] MEDS: VERAPAMIL HCL 180 MG TABCR PO SCH ×2 (08:03→19:56)
[2021-07-01] MEDS: CHOLECALCIFEROL 1,000 UNITS 25 MCG TAB PO SCH (08:03)
[2021-07-01] MEDS: PANTOprazole 40 MG TAB PO SCH (08:03)
[2021-07-01] MEDS: FERROUS SULFATE 325 MG TAB PO SCH ×2 (08:03→17:07)
[2021-07-01] MEDS: ASPIRIN 81 MG ECTAB PO SCH (08:03)
[2021-07-01] MEDS: SPIRONOLACTONE 25 MG TAB PO SCH (08:03)
[2021-07-01] MEDS: CYANOCOBALAMIN 500 MCG TABLET (VITAMIN B-12) PO SCH (08:03)
[2021-07-01] MEDS: FUROSEMIDE 20 MG TAB PO SCH ×2 (08:03→17:07)
[2021-07-01] MEDS: cefUROXime axetil 250 MG TABLET PO SCH ×2 (08:03→19:56)
[2021-07-01] MEDS: ACETAMINOPHEN 325 MG TAB PO SCH ×2 (08:05→19:56)
[2021-07-01] MEDS: POTASSIUM CHLORIDE CRTAB 20 MEQ TABCR PO SCH (08:05)
[2021-07-01] MEDS ORDERED: TORSEMIDE 100 MG TAB PO SCH (09:00)
--- NOTE | 2021-07-01 12:02 | Cardiology Progress Note ---
Date of Service July 01, 2021 Assessment & Plan (1) Acute on chronic combined systolic and diastolic congestive heart failure: (2) Anemia: (3) Hypertensive heart disease: (4) Valvular heart disease: (5) Atrial fibrillation, permanent: (6) Pulmonary HTN: Plan: The patient's hemoglobin is stable at 8.5 today. Currently I would continue her medications. She has mild LV dysfunction with an estimated left ventricular ejection fraction of between 45 and 50%. She has been on verapamil for an extended period of time probably to treat hypertension as well as PAF. I think we can continue it at this time. She will need to go home on Lasix 20 mg daily. If there are no more procedures planned as an inpatient then I believe that she could potentially be discharged to outpatient follow-up. Admission and Anticipated Discharge Date Admission Date: June 26, 2021 Subjective Patient without complaints today. She is comfortable sitting in a chair eating lunch. Review of Systems Review of Systems: Review of Systems: See HPI for pertinent positives. All other 10 point review of systems are negative. Physical Exam Physical Exam: General: no acute distress and stated age Head: normocephalic, no masses, lesions, tenderness or abnormalities Eyes: conjunctiva are pink and non-injected, sclera clear Neck: supple, no adenopathy, no bruits, normal jugular venous pulse, no hepatojugular reflux Chest: normal shape and normal respiratory effort Lungs: clear to auscultation and percussion Cardiac Exam: - regular rate & rhythm, no murmurs gallops or rubs - normal S1, normal S2 Pulses: 2(+) throughout Abdomen: abdomen soft, non-tender, no abnormal masses and no hepatosplenomegaly Musculoskeletal: no gait disturbance, no joint inflammation, no deforming arthritis Extremities: no edema and no cyanosis Neuro: grossly normal exam Results & Data ([facility]) Vital Signs (Past 12 Hours) Vital Signs Temp Pulse Resp BP Pulse Ox 07/01/21 10:52 36.5 C 83 19 118/57 L 97 07/01/21 06:57 36.6 C 72 19 115/68 93 07/01/21 03:20 36.7 C 72 21 115/65 96 Laboratory Results Laboratory Results - last 24 hr 07/01/21 07/01/21 07/01/21 05:47 05:47 05:47 WBC 6.72 RBC 3.76 L Hgb 8.5 L Hct 29.1 L MCV 77.4 L MCH 22.6 L MCHC 29.2 L RDW Std Deviation 53.9 H RDW Coeff of Valerie 19.9 H Plt Count 353 MPV 10.6 H Immature Gran % (Auto) 1.8 Neut % (Auto) 68.3 Lymph % (Auto) 16.4 Dickinson % (Auto) 11.3 Eos % (Auto) 1.9 Baso % (Auto) 0.3 Neut # (Auto) 4.59 Lymph # (Auto) 1.10 L Dickinson # (Auto) 0.76 H Eos # (Auto) 0.13 Baso # (Auto) 0.02 Immature Gran # (Auto) 0.12 H PT 11.4 INR 1.1 Sodium 133 L Potassium Chloride 100 Carbon Dioxide 29 Anion Gap 4.0 BUN 13 Creatinine 0.79 Est Cr Clr Drug Dosing 50.7 Est GFR ( Amer) 80.2 Est GFR (Non-Af Amer) 69.2 BUN/Creatinine Ratio 16.5 Glucose 91 Calcium 8.4 L 07/01/21 07:24 WBC RBC Hgb Hct MCV MCH MCHC RDW Std Deviation RDW Coeff of Valerie Plt Count MPV Immature Gran % (Auto) Neut % (Auto) Lymph % (Auto) Dickinson % (Auto) Eos % (Auto) Baso % (Auto) Neut # (Auto) Lymph # (Auto) Dickinson # (Auto) Eos # (Auto) Baso # (Auto) Immature Gran # (Auto) PT INR Sodium Potassium 4.5 D Chloride Carbon Dioxide Anion Gap BUN Creatinine Est Cr Clr Drug Dosing Est GFR ( Amer) Est GFR (Non-Af Amer) BUN/Creatinine Ratio Glucose Calcium Medications Administered Current Inpatient Medications Acetaminophen (Acetaminophen 325 Mg Tab) 650 mg PO Q4H PRN PRN Reason: Pain or Fever Stop: 07/27/21 01:02 Last Admin: 06/29/21 02:52 Dose: 650 mg Documented by: Acetaminophen (Acetaminophen 325 Mg Tab) 650 mg PO BID [facility] Stop: 07/27/21 01:29 Last Admin: 07/01/21 08:05 Dose: 650 mg Documented by: Albuterol (Albuterol Hfa 8 Gm Inhaler) 2 puffs INH Q6R PRN PRN Reason: Shortness Of Breath Or Wheezin Stop: 07/27/21 01:02 Aspirin (Aspirin 81 Mg Ectab) 81 mg PO DAILY [facility] Stop: 07/27/21 08:59 Last Admin: 07/01/21 08:03 Dose: 81 mg Documented by: Cefuroxime Axetil (Cefuroxime Axetil 250 Mg Tablet) 250 mg PO BID [facility] Stop: 07/03/21 08:59 Last Admin: 07/01/21 08:03 Dose: 250 mg Documented by: Cyanocobalamin (Cyanocobalamin 500 Mcg Tablet (Vitamin B-12)) 1,000 mcg PO DAILY [facility] Stop: 07/27/21 08:59 Last Admin: 07/01/21 08:03 Dose: 1,000 mcg Documented by: Ferrous Sulfate (Ferrous Sulfate 325 Mg Tab) 325 mg PO BIDM [facility] Stop: 07/28/21 16:59 Last Admin: 07/01/21 08:03 Dose: 325 mg Documented by: Furosemide (Furosemide 20 Mg Tab) 20 mg PO BID17 [facility] Stop: 07/30/21 16:59 Last Admin: 07/01/21 08:03 Dose: 20 mg Documented by: Levalbuterol HCl (Levalbuterol Hcl 1.25 Mg/3 Ml Neb) 1.25 mg NEB Q2R PRN PRN Reason: Shortness Of Breath Or Wheezing Stop: 07/27/21 01:02 Last Admin: 06/28/21 15:47 Dose: 1.25 mg Documented by: Nitroglycerin (Nitroglycerin Sl 0.4 Mg/Tab Tab) 0.4 mg SL UD PRN PRN Reason: Chest Pain Stop: 07/27/21 01:02 Ondansetron HCl (Ondansetron Inj 2 Mg/Ml 2 Ml Vial) 4 mg IV Q6H PRN PRN Reason: Nausea Stop: 07/27/21 01:02 Pantoprazole Sodium (Pantoprazole 40 Mg Tab) 40 mg PO QAM [facility] Stop: 07/31/21 08:59 Last Admin: 07/01/21 08:03 Dose: 40 mg Documented by: Polyethylene Glycol (Polyethylene (Miralax) 17 Gm Pack) 17 gm PO DAILY PRN PRN Reason: Constipation Stop: 07/27/21 01:02 Last Admin: 06/30/21 20:51 Dose: 17 gm Documented by: Polyethylene Glycol (Polyethylene (Miralax) 17 Gm Pack) 17 gm PO DAILY PRN PRN Reason: Constipation Stop: 07/29/21 15:28 Potassium Chloride (Potassium Chloride Crtab 20 Meq Tabcr) 20 meq PO DAILY [facility] Stop: 07/27/21 08:59 Last Admin: 07/01/21 08:05 Dose: 20 meq Documented by: Spironolactone (Spironolactone 25 Mg Tab) 25 mg PO DAILY [facility] Stop: 07/27/21 08:59 Last Admin: 07/01/21 08:03 Dose: 25 mg Documented by: Verapamil HCl (Verapamil Hcl 180 Mg Tabcr) 180 mg PO BID [facility] Stop: 07/27/21 01:29 Last Admin: 07/01/21 08:03 Dose: 180 mg Documented by: Vitamin D (Cholecalciferol 1,000 Units 25 Mcg Tab) 2,000 units PO DAILY [facility] Stop: 07/27/21 08:59 Last Admin: 07/01/21 08:03 Dose: 2,000 units Documented by: (1) Anemia Anemia type: unspecified type Qualified Code(s): D64.9 - Anemia, unspecified
--- NOTE | 2021-07-01 16:02 | Hospitalist Progress Note ---
Date of Service July 01, 2021 Assessment & Plan (1) Acute on chronic combined systolic and diastolic congestive heart failure: (2) Anemia: Plan: ASSESSMENT AND PLAN: This is an 81-year-old female who presents with shortness of breath . 1. Shortness of breath: Most likely secondary to [id number] systolic and diastolic congestive heart failure. The patient has EF of 50% and also the patient has non-rheumatic tricuspid valve insufficiency. -- Diuresed well --Seems to be euvolemic now only has mild lower leg edema -- transition from Lasix 40mg IV q12h to usual Lasix 20mg po BID continue home spironolactone --monitor crea -- Information Technology Coordinator on board 2. Iron Deficiency Anemia: Possible GI Bleed Chronic Coumadin use for A fib -- Hg 6.8 on admission -- The patient is on Coumadin. INR 3.4. The patient has no obvious signs of bleeding -- 2 units PRBC given -- Hg up to 7.9 -- no overt signs of GI bleed -- s/p EGD 06/30: large hiatal hernia, multiple gastric polyps with no stigmata of bleeding change to Protonix PO -- INR 3.4 on admission, reversed with Vit K now 1.1 --May resume Coumadin per GI service Usually on Coumadin 3 mg Wednesday, Wednesday, , Wednesday and 1.5 mg other days We will notify Coumadin clinic regarding patient's discharge 3. History of mild chronic obstructive pulmonary disease -- continue Nebs 4. 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 5. Chronic kidney disease stage III: --Stable 6. History of left bundle-branch block. 7. History of atrial fibrillation, persistent: Continue her home medication of verapamil 180 mg b.i.d., restart Coumadin today 8. E coli uti. -- transition to Cefuroxime- ABx day 02/12 9. Deep venous thrombosis prophylaxis: sequential compression devices. Disposition PT OT recommending discharge to home Patient agreeable to short-term home visiting nurse services Follow-up with PCP in 1 week Follow-up with information systems coordinator in 2 weeks, follow-up with GI in 3 to 4 weeks Admission and Anticipated Discharge Date Admission Date: June 26, 2021 Subjective Follow-up for anemia, iron deficiency, CHF, etc. Seen sitting up in bed, comfortable, not in distress States she feels fine overall No chest pain, palpitations, dizziness No abdominal pain or signs of GI bleed States she tolerated physical therapy well No other symptoms Review of Systems Review of Systems: all noted and negative except for above Physical Exam Physical Exam: General- oriented x 3, not in distress, speaks in sentences with no effort or accessory muscle use Eyes- anicteric Neck- no JVD Lungs- clear BS BL Heart- normal rate, regular rhythm; no murmurs Abdomen- normal bowel sounds, nondistended, soft, nontender Extremities-mild pretibial edema, no calf tenderness Neuro- alert, oriented x 3; no gross focal neurologic deficits Skin- warm & dry Results & Data Results & Data ([facility]) Vital Signs (Past 12 Hours) Vital Signs Temp Pulse Resp BP Pulse Ox 07/01/21 15:32 36.8 C 79 19 120/73 93 07/01/21 10:52 36.5 C 83 19 118/57 L 97 07/01/21 06:57 36.6 C 72 19 115/68 93 all noted and reviewed including below (1) Anemia Anemia type: unspecified type Qualified Code(s): D64.9 - Anemia, unspecified
[2021-07-01] MEDS ORDERED: WARFARIN SOD 3 MG TAB PO SCH (17:00)
[2021-07-02 07:06] LABS: Basophils # (auto) 0.03 K/uL (0-0.2); Basophils % (auto) 0.4 %; Eosinophils # (auto) 0.15 K/uL (0-0.5); Eosinophils % (auto) 2.2 %; Hematocrit (blood only) 30.9 % (37-47); Immature Granulocytes # (auto) 0.08 K/uL (0.00-0.02); Immature Granulocytes % (auto) 1.2 %; Lymphocytes # (auto) 1.08 K/uL (1.2-3.4); Mean Corpuscular Hemoglobin 22.8 pg (25-34); Mean Corpuscular Hgb Conc 29.1 g/dL (32-36); Mean Corpuscular Volume 78.4 fL (80-100); Mean Platelet Volume 9.5 fL (7.4-10.4); Monocytes # (auto) 0.73 K/uL (0.11-0.59); Monocytes % (auto) 10.8 %; Neutrophils % (auto) 69.4 %; Platelet Count 326 K/uL (130-400); RDW Coefficient of Variation 21.4 % (11.5-14.5); RDW Standard Deviation 56.7 fL (36.4-46.3); Red Blood Count 3.94 M/uL (4.2-5.4); White Blood Count 6.77 K/uL (4.8-10.8)
[2021-07-02 07:15] LABS: INR 1.1 (0.9-1.1); Prothrombin Time 11.2 Seconds (9.0-12.0)
[2021-07-02 07:34] LABS: BUN Creatinine Ratio 15.3 (10-20); Est GFR (African American) 70.4 ml/min; Est GFR (Non-African American) 60.8 ml/min; Potassium 4.4 mmol/L (3.5-5.1)
[2021-07-02 07:40] LABS: Anisocytosis Present; Hypochromasia Present; Microcytosis Present; Polychromasia 1+
[2021-07-02] MEDS: CYANOCOBALAMIN 500 MCG TABLET (VITAMIN B-12) PO SCH (08:01)
[2021-07-02] MEDS: cefUROXime axetil 250 MG TABLET PO SCH (08:01)
[2021-07-02] MEDS: FUROSEMIDE 20 MG TAB PO SCH ×2 (08:01→16:55)
[2021-07-02] MEDS: VERAPAMIL HCL 180 MG TABCR PO SCH (08:01)
[2021-07-02] MEDS: FERROUS SULFATE 325 MG TAB PO SCH ×2 (08:01→16:54)
[2021-07-02] MEDS: CHOLECALCIFEROL 1,000 UNITS 25 MCG TAB PO SCH (08:01)
[2021-07-02] MEDS: PANTOprazole 40 MG TAB PO SCH (08:02)
[2021-07-02] MEDS: SPIRONOLACTONE 25 MG TAB PO SCH (08:02)
[2021-07-02] MEDS: ACETAMINOPHEN 325 MG TAB PO SCH (08:03)
[2021-07-02] MEDS: POTASSIUM CHLORIDE CRTAB 20 MEQ TABCR PO SCH (08:04)
[2021-07-02] MEDS ORDERED: WARFARIN SOD 0.5 MG TAB PO SCH (16:00)
--- NOTE | 2021-07-02 16:33 | Discharge Summary ---
Date of Service July 02, 2021 Admission HPI Per Admitting Provider CHIEF COMPLAINT: Shortness of breath. 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 The patient lives with her daughter, ambulates okay with a cane. Has orthopnea present. She uses pillows. Since last Wednesday she is getting short of breath and today it got progressively worse, that is the reason she came in here. She is somewhat tachypneic, having dry cough for several days, not bringing up any phlegm. Denies any chest pain, no fevers, no headache, no blurred visions, no earache, no runny nose, no sore throat, no dysphagia. Appetite is okay. No nausea, no abdominal pain. Normal bowel and bladder movements. Denies any blood in the stools or black stools. Denies any hematuria. She has lower extremity edema, the patient thinks her edema is better than before. Currently, she is saturating at 95% on 2 liters. Her hemoglobin came back at 6.8. The patient is on Coumadin and INR is 3.4, but the patient denies any obvious bleeding. Her BNP is 1681. Chest x-ray shows no evidence of CHF. Admission Exam Per Admitting Provider GENERAL: The patient is obese, not in acute distress. VITAL SIGNS: Temperature 36.4, pulse 86, respiratory rate 21, blood pressure 125/53, respiratory rate somewhat in 30s improved to 20s, blood pressure 125/53, oxygen 95% on 2 liters. HEENT: Pupils equal, round and reactive to light. Oral mucosa moist. NECK: No JVD, no neck masses. CARDIOVASCULAR: S1 and S2 heard. Gallop present. No murmurs appreciated. RESPIRATORY SYSTEM: Normal AP diameter. Somewhat tachypneic. Bilateral diminished breath sounds. No obvious wheezing. Mild bibasilar crackles. ABDOMEN: Soft, bowel sounds present, nontender, nondistended. CENTRAL NERVOUS SYSTEM: Cranial nerves II-XII grossly intact, nonfocal. EXTREMITIES: Bilateral lower extremity, +2 edema present, no erythema seen. Principal Diagnosis Iron deficiency anemia Acute on chronic systolic CHF SOB Discharge Exam General- oriented x 3, not in distress, speaks in sentences with no effort or accessory muscle use Eyes- anicteric Neck- no JVD Lungs- clear BS BL Heart- normal rate, regular rhythm; no murmurs Abdomen- normal bowel sounds, nondistended, soft, nontender Extremities-mild pretibial edema, no calf tenderness Neuro- alert, oriented x 3; no gross focal neurologic deficits Skin- warm & dry Discharge Data Allergies Allergy/AdvReac Type Severity Reaction Status Date / Time shellfish derived Allergy Severe Anaphylaxis Verified 06/29/21 15:37 latex Allergy Intermediate Rash Verified 06/29/21 15:37 Penicillins Allergy Intermediate Hives Verified 06/29/21 15:37 Sulfa (Sulfonamide Allergy Intermediate Hives Verified 06/29/21 15:37 Antibiotics) Consultations 06/26/21 19:24 ED Decision to Admit Stat 06/27/21 08:00 Consult Cardiology Routine Consult Gastroenterology Routine Procedures Performed Operation Date: 06/30/21 16:30 Actual Procedures p Esophagogastroduodenoscopy - Tavares Encinas MD Ordered Studies XR chest 1V portable CLINICAL HISTORY: ff up CHF COMPARISON STUDY: Chest radiograph June 26, 2021. FINDINGS: Right axillary surgical clips are incidentally noted. Cardiomegaly is again noted. Mild pulmonary edema is noted. This has improved since prior examination. Linear right midlung opacity favors atelectasis. There is no pneumothorax. There are possible trace bilateral pleural effusions. IMPRESSION: 1. Mild interstitial pulmonary edema, improved since prior exam. 2. Cardiomegaly. Suspected trace bilateral pleural effusions. ACT 112: Negative or not required by law. Electronically signed by: Ryan Garay M.D. 06/28/2021 5:27 PM Dictated: 06/28/[id number]: 06/28/211725 SINGLE VIEW CHEST CLINICAL HISTORY: Sepsis . FINDINGS: An AP, portable, upright chest radiograph is obtained. No prior studies are available for comparison at the time of dictation. The heart is enlarged noting atherosclerotic calcification of the thoracic aorta. There is pulmonary vascular congestion. Bilateral airspace opacities are seen throughout both lung. Small pleural effusions are suspected with bibasilar scarring/atelectasis. No pneumothorax is seen. The skeletal structures are osteopenic. The bony thorax is grossly intact. Surgical clips are noted in the right axilla. IMPRESSION: 1. Cardiomegaly with evidence of congestive failure. 2. Bilateral airspace opacities likely represent pulmonary edema. Correlate clinically for evidence of a superimposed infectious/inflammatory pneumonitis. Radiographic follow-up to resolution is recommended. 3. Suspect small pleural effusions. ACT 112: Negative or not required by law. Electronically signed by: Gregory Ramirez M.D. 06/26/2021 7:25 PM Dictated: 06/26/[id number]: 06/26/211923 Hospital Course (1) Acute on chronic combined systolic and diastolic congestive heart failure: (2) Anemia: ASSESSMENT AND PLAN: This is an 81-year-old female who presents with shortness of breath . 1. Shortness of breath: Most likely secondary to [id number] systolic and diastolic congestive heart failure. The patient has EF of 50% and also the patient has non-rheumatic tricuspid valve insufficiency. -- Diuresed well --Seems to be euvolemic now only has mild lower leg edema -- transition from Lasix 40mg IV q12h to usual Lasix 20mg po BID continue home spironolactone --monitor crea -- [employer] Administrator on board 2. Iron Deficiency Anemia: Possible GI Bleed Chronic Coumadin use for A fib -- Hg 6.8 on admission -- The patient is on Coumadin. INR 3.4. The patient has no obvious signs of bleeding -- 2 units PRBC given -- Hg up to 7.9 -- no overt signs of GI bleed -- s/p EGD 06/30: large hiatal hernia, multiple gastric polyps with no stigmata of bleeding change to Protonix PO -- INR 3.4 on admission, reversed with Vit K now 1.1 --May resume Coumadin per GI service Usually on Coumadin 3 mg Wednesday, Wednesday, , Wednesday and 1.5 mg other days We will notify Coumadin clinic regarding patient's discharge 3. History of mild chronic obstructive pulmonary disease -- continue Nebs 4. 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 5. Chronic kidney disease stage III: --Stable 6. History of left bundle-branch block. 7. History of atrial fibrillation, persistent: Continue her home medication of verapamil 180 mg b.i.d., restart Coumadin today 8. E coli uti. -- transition to Cefuroxime- ABx day 02/12 9. Deep venous thrombosis prophylaxis: sequential compression devices. Disposition PT OT recommending discharge to home Patient agreeable to short-term home visiting nurse services Follow-up with PCP in 1 week Follow-up with video manager in 2 weeks, follow-up with GI in 3 to 4 weeks Total Time Total Time Spent Total Time Spent (In Minutes): 35 minutes Discharge Plan Discharge Items Patient Disposition: Home - Home Health Services Reason For Visit: SOB Discharge Diagnosis: Iron deficiency anemia Acute on chronic systolic CHF Condition on Discharge: Good Activity: Resume your previous activity Activity Comment: Gradually increase as tolerated Non-emergency contact: Primary Care Provider Call non-emergency contact if: you have any medication questions, your symptoms worsen and you have a fever Follow-up/Referrals: Cabrera Lockwood DO [[employer] Administrator] - (Date & Time 07/22/2021 9:00 AM Provider Harika Sharma PA-C Department Cardiology [facility] ) Filipe Alves MD [Primary Care Provider] - (Date & Time 07/08/2021 11:20 AM Provider Filipe Alves MD Department Family Medicine [facility] ) Tavares Encinas MD [Physician] - Diet: Heart Healthy Fluids: 2000ml (8 cups) Addtl Attending Provider Instructions: Please review your new medication list and follow instructions carefully. Continue taking your usual Lasix and Aldactone. Resume taking her usual Coumadin regimen. The Coumadin clinic will be calling you soon for advice regarding blood work and Coumadin dosing. Always take omeprazole at least 30 minutes before your meal. Stop taking aspirin. Call primary care physician or return to the ER immediately if with recurrence or worsening of symptoms including shortness of breath, Chest pain, dizziness, weakness, blood in your stools. Follow-up with primary care physician in 1 week as outlined above. Follow-up with Darleen video manager Dr. Lockwood in 2 weeks. Please call their office for the appointment. Contact information noted above. Follow-up with Darleen right of way maintenance supervisor Dr. Encinas in 3 to 4 weeks. Please call their office for the appointment. Contact information noted above. Pending Studies at Discharge: No Stand-Alone Forms: My [facility], Smoking Cessation Medications and DC Order Prescriptions: New ferrous sulfate 325 mg (65 mg iron) Tablet,Delayed Release (Dr/Ec) 325 mg PO BIDM Qty: 60 RF: 1 Continued acetaminophen [Tylenol] 325 mg Tablet 650 mg PO BID RF: 0 albuterol sulfate 2.5 mg /3 mL (0.083 %) Solution For Nebulization 2.5 mg INHALATION Q4H PRN (Reason: Wheezing) RF: 0 cyanocobalamin (vitamin B-12) [Vitamin B-12] 1,000 mcg Tablet 1,000 mcg PO DAILY RF: 0 omeprazole 40 mg capsule,delayed release(DR/EC) 40 mg PO BID RF: 0 spironolactone 25 mg tablet 25 mg PO DAILY RF: 0 warfarin 3 mg tablet 1.5 - 3 mg PO UD RF: 0 verapamil 180 mg capsule,ext rel. pellets 24 hr 180 mg PO BID RF: 0 potassium chloride 20 mEq tablet,ER particles/crystals 20 meq PO DAILY RF: 0 torsemide 100 mg tablet 100 mg PO DAILY PRN (Reason: Fluid Retention) RF: 0 furosemide 20 mg tablet 20 mg PO BID RF: 0 albuterol sulfate 90 mcg/actuation HFA aerosol inhaler 2 puff INHALATION Q6 PRN (Reason: Shortness Of Breath Or Wheezing) RF: 0 cholecalciferol (vitamin D3) [Vitamin D3] 50 mcg (2,000 unit) Tablet 50 mcg PO DAILY RF: 0 Caltrate 600 plus D 600 mg (1,500 mg)-800 unit Tablet,Chewable 1 tab PO BID RF: 0 Discontinued aspirin [Aspir-81] 81 mg Tablet,Delayed Release (Dr/Ec) 81 mg PO DAILY RF: 0 Discharge Orders: Discharge Order (Routine); Ordered 07/02/21 Ordered By: Karen Norris Admission Data Admit Date/Time: 06/26/21 21:04 Attending Provider: Karen Norris Admit Provider: Sancho Tanner Primary Care Provider: Filipe Alves Other Providers: Sancho Tanner ; Varinder Tee ; Ehsan Odell ; Osiel Rosado ; Jerardo Card ; Cabrera Lockwood ; Robby Brewer ; Harika Sharma ; Fidelina Naylor ; Cailin Dahl ; Dioni Grimaldo ; Ursula Sebastian ; Myranda Baker ; Dave Hilton Other Interventions: Discharge Summary Assessment (RN) Last Done: 07/02/21 16:35
== END 2021-07-02 17:24 | disposition home health service (06) | DRG 291 ==
LOC: ED 17:05 → SUATTDRO 21:04 → 1E 21:04 → 2S 06-27 16:34

== ENCOUNTER 2021-09-05 13:02 | Inpatient (IN) ==
[2021-09-05 13:38] LABS: Basophils # (auto) 0.01 K/uL (0-0.2); Basophils % (auto) 0.2 %; Eosinophils % (auto) 1.5 %; Hematocrit (blood only) 37.4 % (37-47); Hemoglobin 11.3 g/dL (12.0-16.0); Immature Granulocytes # (auto) 0.02 K/uL (0.00-0.02); Immature Granulocytes % (auto) 0.3 %; Lymphocytes % (auto) 16.8 %; Mean Corpuscular Hemoglobin 26.6 pg (25-34); Mean Corpuscular Hgb Conc 30.2 g/dL (32-36); Mean Platelet Volume 10.4 fL (7.4-10.4); Monocytes # (auto) 0.52 K/uL (0.11-0.59); Monocytes % (auto) 7.9 %; Neutrophils % (auto) 73.3 %; Platelet Count 245 K/uL (130-400); RDW Coefficient of Variation 20.9 % (11.5-14.5); RDW Standard Deviation 67.7 fL (36.4-46.3); Red Blood Count 4.25 M/uL (4.2-5.4); White Blood Count 6.55 K/uL (4.8-10.8)
[2021-09-05 13:58] LABS: Alanine Aminotransferase 14 U/L (12-78); Aspartate Aminotransferase 16 U/L (15-37); BUN Creatinine Ratio 16.4 (10-20); Blood Urea Nitrogen 13 mg/dl (7-18); Carbon Dioxide 29 mmol/L (21-32); Chloride 107 mmol/L (98-107); Est GFR (African American) 76.7 ml/min; Est GFR (Non-African American) 66.2 ml/min; Glucose 84 mg/dl (70-99); Lipase 93 U/L (73-393); Potassium 4.4 mmol/L (3.5-5.1); Sodium 139 mmol/L (136-145)
[2021-09-05 14:01] LABS: Albumin Globulin Ratio 0.8 (0.9-2); Alkaline Phosphatase 70 U/L (45-117); Bilirubin,Total 0.4 mg/dl (0.2-1); Globulin 3.7 gm/dl (2.5-4.0); Total Protein 6.7 gm/dl (6.4-8.2)
[2021-09-05 14:02] LABS: Anisocytosis Present; Ovalocytes 1+
[2021-09-05] MEDS ORDERED: ONDANSETRON INJ 2 MG/ML 2 ML VIAL IV STA (16:09)
[2021-09-05] MEDS ORDERED: SODIUM CHLORIDE 0.9% 1000ML 500 ML IV ONE (16:09)
[2021-09-05] MEDS ORDERED: MoRPHine SULFATE 2 MG/ML CARP IV PRN (16:09)
[2021-09-05] MEDS ORDERED: ACETAMINOPHEN 1000 MG/100 ML IV IV STA (16:09)
--- NOTE | 2021-09-05 16:15 | Emergency Department Note ---
Impression & Plan Acute upper abdominal pain, Constipation, Ileus, Hiatal hernia ED Provider Note NAME: CAIO LLANOS AGE: 81 SEX: F : 1940 ARRIVES VIA: Walk-In INFORMANT: [Patient][family] ED PROVIDER(S): [Gregory Muhammad MD] CHIEF COMPLAINT: Abdominal pain HISTORY OF PRESENT ILLNESS: The patient is an 81-year-old female who presents to the ER with 3 weeks of right upper quadrant abdominal pain that she thinks may be from a hernia. The pain began after eating popcorn. It has been present ever since and is rated as severe. She denies any nausea or vomiting. Eating does not change the pain. No diarrhea, no urinary complaints. Her stool is black in color but she states this is from taking iron. She states the pain has affected her ability to take a breath, she feels short of breath. The pain worsens with coughing. The patient went to [facility] [address] urgent care, she was referred to the ED for further work-up. REVIEW OF SYSTEMS: See HPI for pertinent positives and negatives. A total of ten systems were reviewed and were otherwise negative. PMHx/PSHx: See Below SOCIAL HISTORY: See Below. PHYSICAL EXAM: GENERAL: Patient is in mild distress from pain. HEENT: No acute trauma, normocephalic atraumatic, mucous membranes moist, no nasal congestion, no scleral icterus. NECK: No stridor, no adenopathy, no meningismus, trachea is midline. LUNGS: Clear to auscultation bilaterally, no wheeze, no rhonchi, breath sounds equal. Increased respiratory rate. HEART: Slightly irregular rhythm, no murmurs, normal rate. ABDOMEN: Soft, moderately tender in the right upper quadrant, bowel sounds positive, no peritonitis. EXTREMITIES: No cyanosis, moderate bilateral pedal edema, full range of motion of all the joints without pain or difficulty, no signs for acute trauma. NEUROLOGIC: Oriented x 3, no acute motor or sensory deficits, no focal weakness. SKIN: No rash, no jaundice, no diaphoresis. Rectal: There is normal-appearing anal mucosa. No abscess noted. Digital exam reveals brown stool, no mass felt. DIFFERENTIAL DIAGNOSIS: Appendicitis, ovarian cyst, ovarian torsion, diverticulitis, UTI, obstruction, mesenteric ischemia, aortic pathology, inflammatory bowel disease, renal colic, PUD, pancreatitis, biliary pathology, hernia, volvulus, constipation, as well as other pathologies. EMERGENCY DEPARTMENT COURSE/PROCEDURES: ECG: Indication was abdominal pain. The ECG shows atrial fibrillation with a left bundle branch block. There is baseline artifact present. A PVC is noted. No obvious ST elevation. The QTc is 501. Continuous Cardiac Monitoring: An order was placed for continuous cardiac monitoring. The monitor shows a rate of 92 with atrial fibrillation. MEDICAL DECISION MAKING: There is no leukocytosis or concerning anemia. There is a normal platelet count. INR is elevated at 3.6, this is consistent with her Coumadin use. No significant electrolyte abnormality requiring emergent correction. No liver enzyme elevation. No evidence for pancreatitis. Urinalysis does not show infection. Covid testing returned negative. Chest x-ray did not show free air or pneumonia. I hiatal hernia was noted. Abdominal and pelvis CT does not show any evidence for abscess, there is an ileus present with some constipation. There was a fullness described on CT near the anus/rectum-nothing found with my exam clinically. The patient was quite tender in the upper right abdomen. The patient received IV saline for hydration. She received oral Senokot. She received IV Zofran, IV morphine. She was given IV Tylenol. The patient is still quite uncomfortable. At this point, the true cause for her complaints is unclear. I do not feel comfortable with discharge given how much pain is present. Patient is convinced this may be her hiatal hernia. Patient can be observed overnight, GI can potentially assess her complaints. We can work on trying to get her constipation resolved. I spoke with the patient, I talked to case management. The on-call hospitalist was consulted. Past Med/Surg History Medical History Anemia Atrial fibrillation Vazquez esophagus Breast cancer Chronic combined systolic and diastolic heart failure CKD (chronic kidney disease), stage III COPD (chronic obstructive pulmonary disease) LBBB (left bundle branch block) Pulmonary HTN Surgical History History of abdominal hysterectomy History of cholecystectomy History of lumbar surgery History of mastectomy Family History Father Prostate cancer Heart disease [place] age 73 Mother Heart disease Social History Smoking Status: Never smoker Second Hand Exposure: No; Hx Alcohol Use: No Hx Substance Use: No Preferred Language: German Communication Ability: Effective Wood Floor Layer Required: No Beliefs That Will Affect Care: None marital status: / Current Living Situation: Alone How many Children do You have: 4 Feels Safe at Home: Yes Assistive Devices: Walker Allergies Allergies Allergy/AdvReac Type Severity Reaction Status Date / Time shellfish derived Allergy Severe Anaphylaxis Verified 09/05/21 17:14 latex Allergy Intermediate Rash Verified 09/05/21 17:14 Penicillins Allergy Intermediate Hives Verified 09/05/21 17:14 Sulfa (Sulfonamide Allergy Intermediate Hives Verified 09/05/21 17:14 Antibiotics) Home Meds Home Medications Medication Instructions Recorded Confirmed albuterol sulfate 2.5 mg INHALATION Q4H PRN 06/26/21 09/05/21 albuterol sulfate 90 mcg/actuation 2 puff INHALATION Q6 PRN 06/26/21 09/05/21 aerosol inhaler calcium carbonate 600 mg(1,500 1 tab PO BID 06/26/21 09/05/21 mg)-vitamin D3 800 unit chewable tablet (Caltrate 600 plus D) cholecalciferol (vitamin D3) 50 50 mcg PO DAILY 06/26/21 09/05/21 mcg (2,000 unit) tablet (Vitamin D3) cyanocobalamin (vitamin B-12) 1,000 mcg PO DAILY 06/26/21 09/05/21 1,000 mcg tablet (Vitamin B-12) furosemide 20 mg tablet 20 mg PO BID 06/26/21 09/05/21 omeprazole 40 mg capsule,delayed 40 mg PO BID 06/26/21 09/05/21 release potassium chloride 20 mEq 20 meq PO DAILY 06/26/21 09/05/21 tablet,extended release(part/cryst) spironolactone 25 mg tablet 25 mg PO DAILY 06/26/21 09/05/21 torsemide 100 mg tablet 100 mg PO DAILY PRN 06/26/21 09/05/21 verapamil 180 mg 24 hr 180 mg PO BID 06/26/21 09/05/21 capsule,extended release warfarin 3 mg tablet 1.5 - 3 mg PO UD 06/26/21 09/05/21 acetaminophen 650 mg 650 mg PO Q12H 09/05/21 09/05/21 tablet,extended release Previous Rx's Medication Instructions Recorded ferrous sulfate 325 mg (65 mg 325 mg PO BIDM #60 tab 07/01/21 iron) tablet,delayed release Results & Data (ED) Vital Signs Vital Signs - 24 hr 09/05/21 13:11 Temperature 36.8 C Temperature Source Temporal Artery Scan Pulse Rate 82 Respiratory Rate 18 Blood Pressure 139/90 Blood Pressure Mean 106 Pulse Oximetry 97 Oxygen Delivery Method Room Air Sepsis Recent Fever Within 48 Hours No Sepsis New/Unexplained Change in Mental Status No Sepsis Action Taken by Nursing No Action Required Home Medications Current Medication List: was personally reviewed by me Laboratory Data Attestation: I reviewed the patient's lab results. Result diagrams: 09/05/21 13:30 09/05/21 13:30 Lab Results 09/05/21 09/05/21 09/05/21 Range/Units 13:30 13:30 16:41 WBC 6.55 (4.8-10.8) K/uL RBC 4.25 (4.2-5.4) M/uL Hgb 11.3 L (12.0-16.0) g/dL Hct 37.4 (37-47) % MCV 88.0 (80-100) fL MCH 26.6 (25-34) pg MCHC 30.2 L (32-36) g/dL RDW Std Deviation 67.7 H (36.4-46.3) fL RDW Coeff of Valerie 20.9 H (11.5-14.5) % Plt Count 245 (130-400) K/uL MPV 10.4 (7.4-10.4) fL Immature Gran % (Auto) 0.3 % Neut % (Auto) 73.3 % Lymph % (Auto) 16.8 % [place] % (Auto) 7.9 % Eos % (Auto) 1.5 % Baso % (Auto) 0.2 % Neut # (Auto) 4.80 (1.4-6.5) K/uL Lymph # (Auto) 1.10 L (1.2-3.4) K/uL [place] # (Auto) 0.52 (0.11-0.59) K/uL Eos # (Auto) 0.10 (0-0.5) K/uL Baso # (Auto) 0.01 (0-0.2) K/uL Immature Gran # (Auto) 0.02 (0.00-0.02) K/uL Anisocytosis Present Ovalocytes 1+ PT 33.3 H (9.0-12.0) Seconds INR 3.6 H (0.9-1.1) APTT 45.9 H* (21.0-31.0) Seconds PTT Ratio 1.7 Sodium 139 (136-145) mmol/L Potassium 4.4 (3.5-5.1) mmol/L Chloride 107 (98-107) mmol/L Carbon Dioxide 29 (21-32) mmol/L Anion Gap 3.0 (3-11) BUN 13 (7-18) mg/dl Creatinine 0.82 (0.6-1.2) mg/dl Est Cr Clr Drug Dosing Not Reportable Est GFR ( Amer) 76.7 ml/min Est GFR (Non-Af Amer) 66.2 ml/min BUN/Creatinine Ratio 16.4 (10-20) Glucose 84 (70-99) mg/dl Calcium 10.0 (8.5-10.1) mg/dl Total Bilirubin 0.4 (0.2-1) mg/dl AST 16 (15-37) U/L ALT 14 (12-78) U/L Alkaline Phosphatase 70 (45-117) U/L Total Protein 6.7 (6.4-8.2) gm/dl Albumin 3.0 L (3.4-5.0) gm/dl Globulin 3.7 (2.5-4.0) gm/dl Albumin/Globulin Ratio 0.8 L (0.9-2) Lipase 93 (73-393) U/L Administered Medications Calcium Carbonate (Calcium Carbonate 500 Mg Chewable Tab) 1,000 mg PO Q12H CHIKI Stop: 09/07/21 11:01 Last Admin: 09/06/21 00:00 Dose: 1,000 mg Documented by: [id number] Furosemide (Furosemide 20 Mg Tab) 20 mg PO BID CHIKI Stop: 10/05/21 22:22 Last Admin: 09/06/21 00:02 Dose: 20 mg Documented by: [id number] Pantoprazole Sodium (Pantoprazole 40 Mg Tab) 40 mg PO BID CHIKI Stop: 10/05/21 22:22 Last Admin: 09/06/21 00:01 Dose: 40 mg Documented by: [id number] Verapamil HCl (Verapamil Hcl 180 Mg Tabcr) 180 mg PO BID CHIKI Stop: 10/05/21 22:22 Last Admin: 09/06/21 00:01 Dose: 180 mg Documented by: [id number] Discontinued Medications Acetaminophen (Acetaminophen 1000 Mg/100 Ml Iv) 1,000 mg IV NOW STA Stop: 09/05/21 16:10 Last Admin: 09/05/21 17:02 Dose: 1,000 mg Documented by: [id number] Sodium Chloride (Nss 1000ml) 500 mls @ 999 mls/hr IV .Q31M ONE Stop: 09/05/21 16:39 Last Infusion: 09/05/21 17:33 Dose: 0 mls/hr Documented by: [id number] Admin: 09/05/21 17:02 Dose: 999 mls/hr Documented by: [id number] Ioversol (Optiray 320 100ml) 99 ml IV ONCE ONE Stop: 09/05/21 17:15 Last Admin: 09/05/21 17:14 Dose: 99 ml Documented by: [id number] Morphine Sulfate (Morphine Sulfate 2 Mg/Ml Carp) 2 mg IV Q20M PRN PRN Reason: Pain Stop: 09/19/21 16:08 Last Admin: 09/05/21 17:02 Dose: 2 mg Documented by: [id number] Ondansetron HCl (Ondansetron Inj 2 Mg/Ml 2 Ml Vial) 4 mg IV NOW STA Stop: 09/05/21 16:10 Last Admin: 09/05/21 17:02 Dose: 4 mg Documented by: [id number] Senna/Docusate Sodium (Docusate Sodium/Senna 50/8.6mg Tab) 2 tab PO NOW STA Stop: 09/05/21 17:50 Last Admin: 09/05/21 19:01 Dose: 2 tab Documented by: [id number] Imaging Data Radiologist's Impression: Abdomen/Pelvis CT 09/05/21 16:09 CT abd pelvis IV con only CLINICAL HISTORY: ruq pain COMPARISON STUDY: No previous studies for comparison. CT DOSE: 543.34 mGy.cm TECHNIQUE: Standard CT of the Abdomen and Pelvis was performed with IV contrast. A dose lowering technique was utilized adhering to the principles of ALARA. Contrast Volume: Optiray 320, 99 ml. The patient did not receive oral contrast. FINDINGS: Lung base: The heart is mildly to moderately enlarged. Minimal linear fibrotic changes are seen at both lung bases with no confluent alveolar opacities. Abdominal cavity: There is no evidence for abdominal mass, adenopathy or ascites. Liver: There is homogeneous attenuation of the liver parenchyma. There is no evidence for enhancing mass lesion. Spleen: There is homogeneous attenuation of the splenic parenchyma. There is no enhancing mass lesion. Pancreas: There is homogeneous attenuation of the pancreatic parenchyma. There is no evidence for mass lesion or peripancreatic fluid collection. Gall Bladder: Surgical clips are present from previous cholecystectomy. Adrenal glands: The adrenal glands are normal in size and attenuation. There is no evidence for enhancing mass lesion. Kidneys: There is homogeneous attenuation of the renal parenchyma bilaterally. There is no evidence for renal calculus or hydronephrosis. There is no evidence for enhancing mass. Bowel: There are surgical clips present in the GE junction. However, there is a small hiatal hernia. The bowel loops are normally placed within the abdomen and pelvis without evidence for dilatation or obstruction. There are a few fluid- filled loops of small bowel present which can be seen with a mild ileus or early gastroenteritis. There is mild fecal impaction with localized mucosal thickening of the lateral wall of the anal rectal region on the right measuring at least 4.0 x 3.3 cm. Clinical correlation is necessary. There are no inflammatory changes present. There is no evidence for free air. The appendix is not visualized. Bladder: The bladder is within normal limits with no evidence for focal mass, calculus or diverticulum. : There is no evidence for pelvic mass or adenopathy. There is no evidence for pelvic ascites. Patient is status post hysterectomy. Vasculature: There is no evidence for aneurysmal dilatation of the abdominal aorta. Osseous structures: There is no acute osseous pathology. IMPRESSION: 1. Small hiatal hernia with mucosal thickening. 2. Mild ileus versus early gastroenteritis . No bowel obstruction. 3. Mild fecal impaction without evidence for obstruction. 4. Asymmetric mucosal thickening of the anorectal junction to the right. Direct clinical correlation is necessary. 4. Additional nonacute findings are delineated above. ACT 112: Negative or not required by law. Electronically signed by: Edwin Quintero M.D. 09/05/2021 5:27 PM Chest X-Ray 09/05/21 16:09 XR chest 1V portable HISTORY: Generalized abdominal pain. COMPARISON: Chest 06/28/2021. FINDINGS: No pneumothorax. Suspect trace bilateral pleural effusions. The cardiac silhouette remains moderately enlarged. Diffuse interstitial/vascular thickening consistent with mild interstitial pulmonary edema. This has slightly improved. Surgical clips within the right axilla. IMPRESSION: Slight improvement in the mild interstitial pulmonary edema and trace bilateral pleural effusions. Cardiomegaly remains unchanged. ACT 112: Negative or not required by law. Electronically signed by: Serge Roberto M.D. 09/05/2021 4:25 PM Discharge Plan Visit Data Chief Complaint: Abdominal Pain Stated Complaint: HERNIA PAIN ED Provider: Gregory Muhammad Discharge Problem: Acute upper abdominal pain, Constipation, Ileus, Hiatal hernia Patient Disposition: Admitted As Inpatient Condition: Fair Discharge Instructions Interventions: ED Discharge Assessment Last Done: 09/05/21 21:45
--- NOTE | 2021-09-05 16:26 | XRay Report ---
XR chest 1V portable HISTORY: Generalized abdominal pain. COMPARISON: Chest 06/28/2021. FINDINGS: No pneumothorax. Suspect trace bilateral pleural effusions. The cardiac silhouette remains moderately enlarged. Diffuse interstitial/vascular thickening consistent with mild interstitial pulmo nary edema. This has slightly improved. Surgical clips within the right axilla. IMPRESSION: Slight improvement in the mild interstitial pulmonary edema and trace bilateral pleural effusions. Ca rdiomegaly remains unchanged. ACT 112: Negative or not required by law. Electronically signed by: Serge Roberto M.D. 09/05/2021 4:25 PM
[2021-09-05] MEDS ORDERED: OPTIRAY 320 100ml IV ONE (17:14)
[2021-09-05 17:15] LABS: INR 3.6 (0.9-1.1); Partial Thromboplastin Ratio 1.7; Prothrombin Time 33.3 Seconds (9.0-12.0)
[2021-09-05 17:18] LABS: Partial Thromboplastin Time 45.9 Seconds (21.0-31.0)
--- NOTE | 2021-09-05 17:28 | CT Scan Report ---
CT abd pelvis IV con only CLINICAL HISTORY: ruq pain COMPARISON STUDY: No previous studies for comparison. CT DOSE: 543.34 mGy.cm TECHNIQUE: Standard CT of the Abdomen and Pelvis was performed with IV contrast. A dose lowering avelino hnique was utilized adhering to the principles of ALARA. Contrast Volume: Optiray 320, 99 ml. The patient did not receive oral contrast. FINDINGS: Lung base: The heart is mildly to moderately enlarged. Minimal linear fibrotic changes are seen at catalina th lung bases with no confluent alveolar opacities. Abdominal cavity: There is no evidence for abdominal mass, adenopathy or ascites. Liver: There is homogeneous attenuation of the liver parenchyma. There is no evidence for enhancing m ass lesion. Spleen: There is homogeneous attenuation of the splenic parenchyma. There is no enhancing mass lesion . Pancreas: There is homogeneous attenuation of the pancreatic parenchyma. There is no evidence for mas s lesion or peripancreatic fluid collection. Gall Bladder: Surgical clips are present from previous cholecystectomy. Adrenal glands: The adrenal glands are normal in size and attenuation. There is no evidence for enhan cing mass lesion. Kidneys: There is homogeneous attenuation of the renal parenchyma bilaterally. There is no evidence f or renal calculus or hydronephrosis. There is no evidence for enhancing mass. Bowel: There are surgical clips present in the GE junction. However, there is a small hiatal hernia. The bowel loops are normally placed within the abdomen and pelvis without evidence for dilatation or obstruction. There are a few fluid-filled loops of small bowel present which can be seen with a mild ileus or early gastroenteritis. There is mild fecal impaction with localized mucosal thickening of the lateral wall of the anal recta l region on the right measuring at least 4.0 x 3.3 cm. Clinical correlation is necessary. There are n o inflammatory changes present. There is no evidence for free air. The appendix is not visualized. Bladder: The bladder is within normal limits with no evidence for focal mass, calculus or diverticulu m. : There is no evidence for pelvic mass or adenopathy. There is no evidence for pelvic ascites. Radha ent is status post hysterectomy. Vasculature: There is no evidence for aneurysmal dilatation of the abdominal aorta. Osseous structures: There is no acute osseous pathology. IMPRESSION: 1. Small hiatal hernia with mucosal thickening. 2. Mild ileus versus early gastroenteritis . No bowel obstruction. 3. Mild fecal impaction without evidence for obstruction. 4. Asymmetric mucosal thickening of the anorectal junction to the right. Direct clinical correlation is necessary. 4. Additional nonacute findings are delineated above. ACT 112: Negative or not required by law. Electronically signed by: Edwin Quintero M.D. 09/05/2021 5:27 PM
[2021-09-05] MEDS ORDERED: DOCUSATE SODIUM/SENNA 50/8.6MG TAB PO STA (17:49)
--- NOTE | 2021-09-05 18:19 | History & Physical Report ---
Date of Service September 05, 2021 Assessment & Plan (1) Abdominal pain: Plan: Patient is 81-year-old female with PMH chronic atrial fibrillation on Coumadin, chronic systolic and diastolic CHF, EF 50%, nonrheumatic tricuspid valve, LBBB, pulmonary hypertension, CKD III, Vazquez's esophagus, HLD presented to ER with complaint of right upper abdominal pain x 3 weeks. Reports sharp pain with some intermittent spasm sensation to right upper abdomen. Initially started 6/10 and now feels like 9/10 on pain scale. Feels like pain started after eating popcorn. Abdominal pain worse with movement, improves with sitting and applying pressure to area. States chronic back pain. Denies nausea, vomiting or diarrhea. Reports daily BM's. History hospitalization in 06/2021 for acute on chronic CHF, anemia. Had EGD that showed hiatal hernia and no acute bleeding. Is on iron supplement. Denies fever/chills, diaphoresis, melena, hematochezia, REED, dizziness, syncope, vision changes, neck pain, CP, SOB, orthopnea, palpitations, worsening cough, sore throat, choking, otalgia, rhinorrhea, paresthesias, increasing weakness, extremity edema, rashes, urinary symptoms. In ER given IV Tylenol, morphine, Zofran, 500ml NSS, senna/docusate In ER patient afebrile, P: 82, BP 139/90, 97% on room air. No leukocytosis, Hgb: 11.3, lipase WNL, LFTs WNL CT abdomen pelvis: 1. Small hiatal hernia with mucosal thickening. 2. Mild ileus versus early gastroenteritis . No bowel obstruction. 3. Mild fecal impaction without evidence for obstruction. 4. Asymmetric mucosal thickening of the anorectal junction to the right. Direct clinical correlation is necessary. LFTs and lipase WNL. Patient with history of cholecystectomy however obtain RUQ US. DDx: Musculoskeletal etiology, gastritis Acetaminophen, Voltaren topical as needed pain Full liquid diet Bowel regimen Continue oral PPI CBC, CMP in a.m. If no improvement or worsening consider GI consult (2) Atrial fibrillation: Plan: Chronic atrial fibrillation on Coumadin INR: 3.6 Hold Coumadin tonight INR in a.m. Continue verapamil (3) Chronic combined systolic and diastolic heart failure: Plan: EF 50% Appears euvolemic at this time Continue furosemide, spironolactone Hold as needed torsemide (4) Anemia: Plan: History hemoglobin of 6.8 in 06/2021. Had EGD which showed large hiatal hernia, no acute bleeding Hgb: 11.3 No reported bleeding Monitor H&H Continue iron supplement (5) CKD (chronic kidney disease), stage III: Plan: Cr: 0.8. Baseline Cr: 1.0-1.2) Monitor renal functions, avoid nephrotoxic agents when possible (6) LBBB (left bundle branch block): Plan: Chronic (7) Vazquez esophagus: Plan: Continue PPI DVT Prophylaxis On Coumadin Full Code if think will have meaningful recovery as per discussion with pt Follows with Dr Alves for routine care Pt was seen and care coordinated with Dr Feliciano. See addendum History of Present Illness Chief Complaint: Abdominal pain Primary Care Provider: Filipe Alves MD Patient is 81-year-old female with PMH chronic atrial fibrillation on Coumadin, chronic systolic and diastolic CHF, EF 50%, nonrheumatic tricuspid valve, LBBB, pulmonary hypertension, CKD III, Vazquez's esophagus, HLD presented to ER with complaint of right upper abdominal pain x 3 weeks. Reports sharp pain with some intermittent spasm sensation to right upper abdomen. Initially started 6/10 and now feels like 9/10 on pain scale. Feels like pain started after eating popcorn. Abdominal pain worse with movement, improves with sitting and applying pressure to area. States chronic back pain. Denies nausea, vomiting or diarrhea. Reports daily BM's. History hospitalization in 06/2021 for acute on chronic CHF, anemia. Had EGD that showed hiatal hernia and no acute bleeding. Is on iron supplement. Denies fever/chills, diaphoresis, melena, hematochezia, REED, dizziness, syncope, vision changes, neck pain, CP, SOB, orthopnea, palpitations, worsening cough, sore throat, choking, otalgia, rhinorrhea, paresthesias, increasing weakness, extremity edema, rashes, urinary symptoms. In ER given IV Tylenol, morphine, Zofran, 500ml NSS, senna/docusate In ER patient afebrile, P: 82, BP 139/90, 97% on room air. No leukocytosis, Hgb: 11.3, lipase WNL, LFTs WNL CT abdomen pelvis: 1. Small hiatal hernia with mucosal thickening. 2. Mild ileus versus early gastroenteritis . No bowel obstruction. 3. Mild fecal impaction without evidence for obstruction. 4. Asymmetric mucosal thickening of the anorectal junction to the right. Direct clinical correlation is necessary. Allergies Allergy/AdvReac Type Severity Reaction Status Date / Time shellfish derived Allergy Severe Anaphylaxis Verified 09/05/21 17:14 latex Allergy Intermediate Rash Verified 09/05/21 17:14 Penicillins Allergy Intermediate Hives Verified 09/05/21 17:14 Sulfa (Sulfonamide Allergy Intermediate Hives Verified 09/05/21 17:14 Antibiotics) Home Medications Medication Instructions Recorded Confirmed Type albuterol sulfate 2.5 mg INHALATION Q4H PRN 06/26/21 09/05/21 History albuterol sulfate 90 mcg/actuation 2 puff INHALATION Q6 PRN 06/26/21 09/05/21 History aerosol inhaler calcium carbonate 600 mg(1,500 1 tab PO BID 06/26/21 09/05/21 History mg)-vitamin D3 800 unit chewable tablet (Caltrate 600 plus D) cholecalciferol (vitamin D3) 50 50 mcg PO DAILY 06/26/21 09/05/21 History mcg (2,000 unit) tablet (Vitamin D3) cyanocobalamin (vitamin B-12) 1,000 mcg PO DAILY 06/26/21 09/05/21 History 1,000 mcg tablet (Vitamin B-12) furosemide 20 mg tablet 20 mg PO BID 06/26/21 09/05/21 History omeprazole 40 mg capsule,delayed 40 mg PO BID 06/26/21 09/05/21 History release potassium chloride 20 mEq 20 meq PO DAILY 06/26/21 09/05/21 History tablet,extended release(part/cryst) spironolactone 25 mg tablet 25 mg PO DAILY 06/26/21 09/05/21 History torsemide 100 mg tablet 100 mg PO DAILY PRN 06/26/21 09/05/21 History verapamil 180 mg 24 hr 180 mg PO BID 06/26/21 09/05/21 History capsule,extended release warfarin 3 mg tablet 1.5 - 3 mg PO UD 06/26/21 09/05/21 History ferrous sulfate 325 mg (65 mg 325 mg PO BIDM #60 tab 07/01/21 09/05/21 Rx iron) tablet,delayed release acetaminophen 650 mg 650 mg PO Q12H 09/05/21 09/05/21 History tablet,extended release Past Med/Surg History Medical History (Updated 09/05/21 @ 19:06 by Maribell Wilson PA-C) Anemia Atrial fibrillation Vazquez esophagus Breast cancer Chronic combined systolic and diastolic heart failure CKD (chronic kidney disease), stage III COPD (chronic obstructive pulmonary disease) LBBB (left bundle branch block) Pulmonary HTN Surgical History History of abdominal hysterectomy History of cholecystectomy History of lumbar surgery History of mastectomy Family History Father Prostate cancer Heart disease [place] age 73 Mother Heart disease Social History Smoking Status: Never smoker Second Hand Exposure: No; Hx Alcohol Use: No Hx Substance Use: No Preferred Language: Tunisian Communication Ability: Effective Transportation Clerk Required: No Beliefs That Will Affect Care: None marital status: / Current Living Situation: Alone How many Children do You have: 4 Feels Safe at Home: Yes Assistive Devices: Walker Review of Systems Review of Systems: All systems reviewed & are unremarkable except as noted in HPI & below Physical Exam Physical Exam: General: no distress, WDWN Head: normocephalic, atraumatic Eyes: PERRL, EOM's intact, conjunctiva non-injected, anicteric ENT: normal inspection external ears, nose, mucous membranes moist Neck: supple, trachea midline Lungs: clear, no respiratory distress, no wheezing/rhonchi/rales CV: irregularly irregular, trace pretibial edema Abd: normal BS, soft, +tenderness to palpation RUQ without rebound or guarding Ext: no cyanosis, no calf tenderness Neuro: A&O x 3, no focal deficits noted, normal affect Skin: warm, dry Results & Data Results & Data ([facility]) Vital Signs (Past 12 Hours) Vital Signs Temp Pulse Resp BP Pulse Ox 09/05/21 13:11 36.8 C 82 18 139/90 97 Laboratory Results Short CBC 09/05/21 Range/Units 13:30 WBC 6.55 (4.8-10.8) K/uL Hgb 11.3 L (12.0-16.0) g/dL Hct 37.4 (37-47) % Plt Count 245 (130-400) K/uL BMP 09/05/21 13:30 Sodium 139 Potassium 4.4 Chloride 107 Carbon Dioxide 29 BUN 13 Creatinine 0.82 Glucose 84 Calcium 10.0 Liver Function 09/05/21 Range/Units 13:30 Total Bilirubin 0.4 (0.2-1) mg/dl AST 16 (15-37) U/L ALT 14 (12-78) U/L Alkaline Phosphatase 70 (45-117) U/L Albumin 3.0 L (3.4-5.0) gm/dl Diagnostic Findings Abdomen/Pelvis CT 09/05/21 16:09 CT abd pelvis IV con only CLINICAL HISTORY: ruq pain COMPARISON STUDY: No previous studies for comparison. CT DOSE: 543.34 mGy.cm TECHNIQUE: Standard CT of the Abdomen and Pelvis was performed with IV contrast. A dose lowering technique was utilized adhering to the principles of ALARA. Contrast Volume: Optiray 320, 99 ml. The patient did not receive oral contrast. FINDINGS: Lung base: The heart is mildly to moderately enlarged. Minimal linear fibrotic changes are seen at both lung bases with no confluent alveolar opacities. Abdominal cavity: There is no evidence for abdominal mass, adenopathy or ascites. Liver: There is homogeneous attenuation of the liver parenchyma. There is no evidence for enhancing mass lesion. Spleen: There is homogeneous attenuation of the splenic parenchyma. There is no enhancing mass lesion. Pancreas: There is homogeneous attenuation of the pancreatic parenchyma. There is no evidence for mass lesion or peripancreatic fluid collection. Gall Bladder: Surgical clips are present from previous cholecystectomy. Adrenal glands: The adrenal glands are normal in size and attenuation. There is no evidence for enhancing mass lesion. Kidneys: There is homogeneous attenuation of the renal parenchyma bilaterally. There is no evidence for renal calculus or hydronephrosis. There is no evidence for enhancing mass. Bowel: There are surgical clips present in the GE junction. However, there is a small hiatal hernia. The bowel loops are normally placed within the abdomen and pelvis without evidence for dilatation or obstruction. There are a few fluid- filled loops of small bowel present which can be seen with a mild ileus or early gastroenteritis. There is mild fecal impaction with localized mucosal thickening of the lateral wall of the anal rectal region on the right measuring at least 4.0 x 3.3 cm. Clinical correlation is necessary. There are no inflammatory changes present. There is no evidence for free air. The appendix is not visualized. Bladder: The bladder is within normal limits with no evidence for focal mass, calculus or diverticulum. : There is no evidence for pelvic mass or adenopathy. There is no evidence for pelvic ascites. Patient is status post hysterectomy. Vasculature: There is no evidence for aneurysmal dilatation of the abdominal aorta. Osseous structures: There is no acute osseous pathology. IMPRESSION: 1. Small hiatal hernia with mucosal thickening. 2. Mild ileus versus early gastroenteritis . No bowel obstruction. 3. Mild fecal impaction without evidence for obstruction. 4. Asymmetric mucosal thickening of the anorectal junction to the right. Direct clinical correlation is necessary. 4. Additional nonacute findings are delineated above. ACT 112: Negative or not required by law. Electronically signed by: Edwin Quintero M.D. 09/05/2021 5:27 PM Chest X-Ray 09/05/21 16:09 XR chest 1V portable HISTORY: Generalized abdominal pain. COMPARISON: Chest 06/28/2021. FINDINGS: No pneumothorax. Suspect trace bilateral pleural effusions. The cardiac silhouette remains moderately enlarged. Diffuse interstitial/vascular thickening consistent with mild interstitial pulmonary edema. This has slightly improved. Surgical clips within the right axilla. IMPRESSION: Slight improvement in the mild interstitial pulmonary edema and trace bilateral pleural effusions. Cardiomegaly remains unchanged. ACT 112: Negative or not required by law. Electronically signed by: Serge Roberto M.D. 09/05/2021 4:25 PM Supervising Physician Co-Signing Physician Notes 81-year-old female with PMH of chronic atrial fibrillation on Coumadin, chronic systolic and diastolic CHF, EF 50%, nonrheumatic tricuspid valve, LBBB, pulmonary hypertension, CKD III, Vazquez's esophagus, HLD presented 09/05 to ER with complaint of right upper abdominal pain x 3 weeks, started with 7/10 while eating popcorn (no h/o exertion at the time) progressing to 9-10/10 leading upto admission, sharp pain with occasional spasms, exacerbated with pulling/pushing and improves with applying support/pressure to the area. Has h/o barettes and hiatal hernia; on chronic PPI. Denies N, V, D, and other ROS are negative. Likely musculoskeletal pain vs gastritis vs RUQ pathology (GB taken out). CTAP +ve for small hiatal hernia, ileus vs early gastroenteritis. Will get RUQ US, apply volteran gel Q4-6H for pain CHIKI. LFT WNL. If pain doesn't improve with volteran gel, tums prn, consider GI input given h/o barette's esophagus. Upon Exam GENERAL: Alert and oriented x3. NAD, on RA. HEENT: No pallor, no icterus. Pupils equal, round and reactive to light. Oral mucosa moist. NECK: No JVD, no neck masses. HEART: S1 and S2 heard. Regular rate and rhythm. Systolic murmur at Aortic > Pulmonic area, no gallop. RESPIRATORY SYSTEM: Normal AP diameter. No accessory muscle use. No wheezing, no crackles. ABDOMEN: Soft, bowel sounds present, RUQ > Epigastric tenderness, no distention. CENTRAL NERVOUS SYSTEM: No facial droop. Speech is clear. Obeys simple commands. Moves extremities. EXTREMITIES: 1+ BLE edema w/ Chr Skin Changes, no erythema seen. I have seen and examined the patient and have discussed the case with the provider above. I agree with the assessment and plan as stated. (1) Anemia Anemia type: unspecified type Qualified Code(s): D64.9 - Anemia, unspecified
--- NOTE | 2021-09-05 20:19 | Ultrasound Report ---
US gallbladder LIMITED ABDOMEN CLINICAL HISTORY: RUQ pain. COMPARISON: CT abdomen and pelvis from 09/05/2021 TECHNIQUE: Multiple grayscale and color images of the right upper quadrant of the abdomen. FINDINGS: The study is limited by overlying bowel gas. Pancreas: The pancreas cannot be visualized due to bowel gas but was well seen on CT. Liver: The liver is homogeneous in echogenicity There is no evidence for a focal mass. There is no in trahepatic biliary duct dilatation. Gallbladder: The liver is again absent. Common Bile Duct: (CBD): It is normal in size measuring 6 mm. Inferior Vena Cava (IVC): The imaged IVC is patent. Right kidney: There is no evidence for hydronephrosis, calculus or gross renal mass. The kidney is n ormal in size. IMPRESSION: Negative limited abdominal ultrasound. ACT 112: Negative or not required by law. Electronically signed by: Edwin Quintero M.D. 09/05/2021 8:17 PM
[2021-09-05 21:02] LABS: Appearance Urine Clear (Clear); Bilirubin Urine Negative (Negative); Blood Urine Negative (Negative); Color Urine Yellow; Glucose Urine UA Negative (Negative); Ketones Urine Negative (Negative); Leukocyte Esterase Urine Negative (Negative); Nitrite Urine Negative (Negative); Protein Urine Negative (Negative); Specific Gravity Urine > 1.045 (1.000-1.030); Urobilinogen Urine Negative (Negative); pH Urine 5.5 (4.5-7.5)
[2021-09-05] MEDS ORDERED: ALBUTEROL HFA 8 GM INHALER INH PRN (22:23)
[2021-09-05] MEDS ORDERED: DICLOFENAC SOD 1% GEL 100 GM TUBE EXT PRN (22:23)
[2021-09-06] MEDS: PANTOprazole 40 MG TAB PO SCH ×3 (00:01→21:04)
[2021-09-06] MEDS: VERAPAMIL HCL 180 MG TABCR PO SCH ×3 (00:01→21:04)
[2021-09-06] MEDS: FUROSEMIDE 20 MG TAB PO SCH ×3 (00:02→21:05)
[2021-09-06] MEDS: ACETAMINOPHEN 325 MG TAB PO PRN ×2 (01:03→13:59)
[2021-09-06 06:13] LABS: Hematocrit (blood only) 35.2 % (37-47); Hemoglobin 10.6 g/dL (12.0-16.0); Mean Corpuscular Hgb Conc 30.1 g/dL (32-36); Mean Corpuscular Volume 89.6 fL (80-100); Mean Platelet Volume 10.6 fL (7.4-10.4); Platelet Count 245 K/uL (130-400); RDW Coefficient of Variation 20.8 % (11.5-14.5); RDW Standard Deviation 69.5 fL (36.4-46.3); Red Blood Count 3.93 M/uL (4.2-5.4); White Blood Count 10.48 K/uL (4.8-10.8)
[2021-09-06 06:36] LABS: INR 3.8 (0.9-1.1); Prothrombin Time 34.9 Seconds (9.0-12.0)
[2021-09-06 06:48] LABS: Albumin Level 2.8 gm/dl (3.4-5.0); BUN Creatinine Ratio 14.7 (10-20); Calcium 9.9 mg/dl (8.5-10.1); Creatinine Clr Calc Pharmacy 48.2 ml/min; Est GFR (African American) 76.7 ml/min; Est GFR (Non-African American) 66.2 ml/min; Potassium 4.3 mmol/L (3.5-5.1)
[2021-09-06 06:51] LABS: Albumin Globulin Ratio 0.8 (0.9-2); Bilirubin,Total 0.4 mg/dl (0.2-1); Globulin 3.3 gm/dl (2.5-4.0); Total Protein 6.1 gm/dl (6.4-8.2)
--- NOTE | 2021-09-06 07:30 | Electrocardiogram Report ---
Test Reason : Blood Pressure : / mmHG Vent. Rate : 090 BPM Atrial Rate : 078 BPM P-R Int : 000 ms QRS Dur : 128 ms QT Int : 410 ms P-R-T Axes : 000 -57 098 degrees QTc Int : 501 ms Poor data quality, interpretation may be adversely affected Atrial fibrillation with premature ventricular or aberrantly conducted complexes Left bundle branch block Abnormal ECG When compared with ECG of 28-JUN-2021 06:20, No significant change was found Confirmed by Richard Mcgowan ([id number]) on 09/06/2021 7:29:47 AM Referred By: REFERRED SELF Confirmed By:Robert Mcgowan
[2021-09-06] MEDS: POTASSIUM CHLORIDE CRTAB 20 MEQ TABCR PO SCH (09:24)
[2021-09-06] MEDS: FERROUS SULFATE 325 MG TAB PO SCH ×2 (09:24→16:10)
[2021-09-06] MEDS: SPIRONOLACTONE 25 MG TAB PO SCH (09:24)
[2021-09-06] MEDS: DOCUSATE SODIUM 100 MG CAP PO SCH ×2 (09:26→21:05)
[2021-09-06] MEDS: POLYETHYLENE (MIRALAX) 17 GM PACK PO PRN (10:13)
[2021-09-06] MEDS: CALCIUM CARBONATE 500 MG CHEWABLE TAB PO SCH ×3 (11:25→22:16)
[2021-09-06] MEDS ORDERED: ALUMINUM/MAGNESIUM SUSP 30 ML UDC PO PRN (13:20)
[2021-09-06] MEDS: HYDROmorphone INJ 0.5 MG/0.5 ML SYR IV PRN ×2 (14:51→21:43)
--- NOTE | 2021-09-06 15:35 | Hospitalist Progress Note ---
Date of Service September 06, 2021 Assessment & Plan (1) Abdominal pain: Plan: Patient is 81-year-old female with PMH chronic atrial fibrillation on Coumadin, chronic systolic and diastolic CHF, EF 50%, nonrheumatic tricuspid valve, LBBB, pulmonary hypertension, CKD III, Vazquez's esophagus, HLD presented to ER with complaint of right upper abdominal pain x 3 weeks. Reports sharp pain with some intermittent spasm sensation to right upper abdomen. Initially started 6/10 and now feels like 9/10 on pain scale. Feels like pain started after eating popcorn. Abdominal pain worse with movement, improves with sitting and applying pressure to area. States chronic back pain. Denies nausea, vomiting or diarrhea. Reports daily BM's. History hospitalization in 06/2021 for acute on chronic CHF, anemia. Had EGD that showed hiatal hernia and no acute bleeding. Is on iron supplement. Denies fever/chills, diaphoresis, melena, hematochezia, REED, dizziness, syncope, vision changes, neck pain, CP, SOB, orthopnea, palpitations, worsening cough, sore throat, choking, otalgia, rhinorrhea, paresthesias, increasing weakness, extremity edema, rashes, urinary symptoms. Likely secondary to gastritis In ER given IV Tylenol, morphine, Zofran, 500ml NSS, senna/docusate In ER patient afebrile, P: 82, BP 139/90, 97% on room air. No leukocytosis, Hgb: 11.3, lipase WNL, LFTs WNL CT abdomen pelvis: 1. Small hiatal hernia with mucosal thickening. 2. Mild ileus versus early gastroenteritis . No bowel obstruction. 3. Mild fecal impaction without evidence for obstruction. 4. Asymmetric mucosal thickening of the anorectal junction to the right. Direct clinical correlation is necessary. Still complains to abdominal pain in the right upper quadrant without nausea and or vomiting Ultrasound of the liver has been negative and amylase has been normal Has been on PPI and will add sucralfate and Maalox as needed and a small dose of Dilaudid Full liquid diet Bowel regimen Continue oral PPI (2) Atrial fibrillation: Plan: Chronic atrial fibrillation on Coumadin INR: 3.6 Hold Coumadin tonight INR in a.m.-remains minimally elevated at 3.8 Continue verapamil (3) Chronic combined systolic and diastolic heart failure: Plan: EF 50% Appears euvolemic at this time Continue furosemide, spironolactone Hold as needed torsemide (4) Anemia: Plan: History hemoglobin of 6.8 in 06/2021. Had EGD which showed large hiatal hernia, no acute bleeding Hgb: 11.3 No reported bleeding Monitor H&H Continue iron supplement (5) CKD (chronic kidney disease), stage III: Plan: Cr: 0.8. Baseline Cr: 1.0-1.2) Monitor renal functions, avoid nephrotoxic agents when possible (6) LBBB (left bundle branch block): Plan: Chronic (7) Vazquez esophagus: Plan: Continue PPI DVT Prophylaxis On Coumadin Full Code if think will have meaningful recovery as per discussion with pt Follows with Dr Alves for routine care Admission and Anticipated Discharge Date Admission Date: September 05, 2021 Subjective 09/06/2021 The patient was seen and examined in medical telemetry unit She complains today of right upper quadrant pain without nausea and or vomiting Denies any fever and/or chills She has had bowel movement about 2 days ago Review of Systems Review of Systems: All systems reviewed and are unremarkable except as noted below Gastrointestinal: Abdominal discomfort and pain in the right upper quadrant Physical Exam Physical Exam: Sitting on a chair with minimal discomfort due to abdominal demond n Constitutional: well developed, well nourished, + ill appearing and + obese Eyes: PERRL, conjunctivae normal, anicteric sclerae ENMT: external ear and nose normal, oropharynx normal Neck: trachea midline, no thyromegaly Respiratory: no respiratory distress Auscultation: lungs clear to auscultation bilaterally Cardiovascular: Rate/Rhythm: regular rate and regular rhythm; not tachycardic Heart Sounds: normal S1 and normal S2; no murmur Extremities: + edema (Trace edema bilaterally) Gastrointestinal (Abdomen): Inspection/Auscultation: + abdomen distended and normal bowel sounds Percussion/Palpation: + abdomen tender (Right upper quadrant and near to epigastrium without any rebound and/or gua) and abdomen soft Musculoskeletal: No acute arthritis in any joint Neurologic: Alert, awake and oriented x3 Results & Data Results & Data ([facility]) Vital Signs (Past 12 Hours) Vital Signs Temp Pulse Pulse Resp BP Pulse Ox 09/06/21 15:17 36.6 C 69 18 113/82 93 09/06/21 11:20 37.1 C 89 19 104/66 90 09/06/21 08:10 36.9 C 86 19 118/65 90 09/06/21 06:27 90 09/06/21 04:10 37.1 C 91 H 18 104/70 90 Laboratory Results Short CBC 09/06/21 Range/Units 05:30 WBC 10.48 (4.8-10.8) K/uL Hgb 10.6 L (12.0-16.0) g/dL Hct 35.2 L (37-47) % Plt Count 245 (130-400) K/uL BMP 09/06/21 05:30 Sodium 135 L Potassium 4.3 Chloride 103 Carbon Dioxide 30 BUN 12 Creatinine 0.82 Glucose 99 Calcium 9.9 Liver Function 09/06/21 Range/Units 05:30 Total Bilirubin 0.4 (0.2-1) mg/dl AST 15 (15-37) U/L ALT 16 (12-78) U/L Alkaline Phosphatase 70 (45-117) U/L Albumin 2.8 L (3.4-5.0) gm/dl Urine 09/05/21 Range/Units 20:53 Urine Color Yellow Urine Appearance Clear (Clear) Urine pH 5.5 (4.5-7.5) Ur Specific Baker > 1.045 H (1.000-1.030) Urine Protein Negative (Negative) Urine Glucose (UA) Negative (Negative) Medications Administered Current Inpatient Medications Acetaminophen (Acetaminophen 325 Mg Tab) 650 mg PO Q4H PRN PRN Reason: Pain or Fever Stop: 10/05/21 22:22 Last Admin: 09/06/21 13:59 Dose: 650 mg Documented by: Al Hydrox/Mg Hydrox/Simethicone (Aluminum/Magnesium Susp 30 Ml Udc) 30 ml PO Q6H PRN PRN Reason: Dyspepsia Stop: 10/06/21 13:19 Albuterol (Albuterol Hfa 8 Gm Inhaler) 2 puffs INH Q6 PRN PRN Reason: Shortness Of Breath Or Wheezin Stop: 10/05/21 22:22 Calcium Carbonate (Calcium Carbonate 500 Mg Chewable Tab) 1,000 mg PO Q12H CHIKI Stop: 09/07/21 11:01 Last Admin: 09/06/21 11:25 Dose: 1,000 mg Documented by: Diclofenac Sodium (Diclofenac Sod 1% Gel 100 Gm Tube) 4 gm EXT QID PRN PRN Reason: pain Stop: 10/05/21 22:22 Docusate Sodium (Docusate Sodium 100 Mg Cap) 100 mg PO BID CHIKI Stop: 10/06/21 08:59 Last Admin: 09/06/21 09:26 Dose: 100 mg Documented by: Ferrous Sulfate (Ferrous Sulfate 325 Mg Tab) 325 mg PO BIDM CHIKI Stop: 10/06/21 07:59 Last Admin: 09/06/21 09:24 Dose: 325 mg Documented by: Furosemide (Furosemide 20 Mg Tab) 20 mg PO BID CHIKI Stop: 10/05/21 22:22 Last Admin: 09/06/21 09:23 Dose: 20 mg Documented by: Hydromorphone HCl (Hydromorphone Inj 0.5 Mg/0.5 Ml Syr) 0.5 mg IV Q6H PRN PRN Reason: Pain Stop: 09/20/21 13:20 Last Admin: 09/06/21 14:51 Dose: 0.5 mg Documented by: Pantoprazole Sodium (Pantoprazole 40 Mg Tab) 40 mg PO BID CHIKI Stop: 10/05/21 22:22 Last Admin: 09/06/21 09:24 Dose: 40 mg Documented by: Polyethylene Glycol (Polyethylene (Miralax) 17 Gm Pack) 17 gm PO DAILY PRN PRN Reason: Constipation Stop: 10/05/21 22:22 Last Admin: 09/06/21 10:13 Dose: 17 gm Documented by: Potassium Chloride (Potassium Chloride Crtab 20 Meq Tabcr) 20 meq PO DAILY CHIKI Stop: 10/06/21 08:59 Last Admin: 09/06/21 09:24 Dose: 20 meq Documented by: Spironolactone (Spironolactone 25 Mg Tab) 25 mg PO DAILY CHIKI Stop: 10/06/21 08:59 Last Admin: 09/06/21 09:24 Dose: 25 mg Documented by: Sucralfate (Sucralfate 1 Gm/10 Ml Udc) 1 gm PO QID CHIKI Stop: 10/06/21 16:59 Verapamil HCl (Verapamil Hcl 180 Mg Tabcr) 180 mg PO BID CHIKI Stop: 10/05/21 22:22 Last Admin: 09/06/21 09:24 Dose: 180 mg Documented by: (1) Anemia Anemia type: unspecified type Qualified Code(s): D64.9 - Anemia, unspecified
[2021-09-06] MEDS: SUCRALFATE 1 GM/10 ML UDC PO SCH ×2 (16:10→21:05)
[2021-09-07 05:50] LABS: Basophils # (auto) 0.01 K/uL (0-0.2); Basophils % (auto) 0.2 %; Eosinophils # (auto) 0.04 K/uL (0-0.5); Eosinophils % (auto) 0.7 %; Hemoglobin 10.3 g/dL (12.0-16.0); Immature Granulocytes # (auto) 0.02 K/uL (0.00-0.02); Immature Granulocytes % (auto) 0.3 %; Lymphocytes # (auto) 0.76 K/uL (1.2-3.4); Lymphocytes % (auto) 12.4 %; Mean Corpuscular Hgb Conc 30.3 g/dL (32-36); Mean Platelet Volume 10.8 fL (7.4-10.4); Monocytes # (auto) 0.53 K/uL (0.11-0.59); Monocytes % (auto) 8.6 %; Neutrophils # (auto) 4.77 K/uL (1.4-6.5); Neutrophils % (auto) 77.8 %; Platelet Count 242 K/uL (130-400); RDW Coefficient of Variation 20.3 % (11.5-14.5); RDW Standard Deviation 66.7 fL (36.4-46.3); Red Blood Count 3.82 M/uL (4.2-5.4); White Blood Count 6.13 K/uL (4.8-10.8)
[2021-09-07 06:08] LABS: INR 5.4 (0.9-1.1); Prothrombin Time 47.9 Seconds (9.0-12.0)
[2021-09-07 06:23] LABS: Albumin Globulin Ratio 0.8 (0.9-2); Albumin Level 2.8 gm/dl (3.4-5.0); BUN Creatinine Ratio 13.2 (10-20); Bilirubin,Total 0.4 mg/dl (0.2-1); Calcium 10.1 mg/dl (8.5-10.1); Est GFR (African American) 53.8 ml/min; Est GFR (Non-African American) 46.4 ml/min; Globulin 3.3 gm/dl (2.5-4.0); Potassium 5.4 mmol/L (3.5-5.1); Total Protein 6.1 gm/dl (6.4-8.2)
[2021-09-07 06:28] LABS: Anisocytosis Present; Hypochromasia Present; Ovalocytes 1+
[2021-09-07] MEDS ORDERED: SODIUM CHLORIDE 0.9% 1000ML 1,000 ML IV SCH (08:15)
[2021-09-07] MEDS: HYDROmorphone INJ 0.5 MG/0.5 ML SYR IV PRN ×3 (08:35→20:13)
[2021-09-07] MEDS: VERAPAMIL HCL 180 MG TABCR PO SCH ×2 (08:40→20:22)
[2021-09-07] MEDS: FERROUS SULFATE 325 MG TAB PO SCH ×2 (08:40→18:04)
[2021-09-07] MEDS: POTASSIUM CHLORIDE CRTAB 20 MEQ TABCR PO SCH (08:41)
[2021-09-07] MEDS: SPIRONOLACTONE 25 MG TAB PO SCH (08:41)
[2021-09-07] MEDS: PANTOprazole 40 MG TAB PO SCH ×2 (08:41→20:22)
[2021-09-07] MEDS: FUROSEMIDE 20 MG TAB PO SCH ×2 (08:41→20:22)
[2021-09-07] MEDS: SUCRALFATE 1 GM/10 ML UDC PO SCH ×4 (08:41→20:23)
[2021-09-07] MEDS: DOCUSATE SODIUM 100 MG CAP PO SCH ×2 (08:49→20:22)
[2021-09-07] MEDS ORDERED: HYDROmorphone INJ 0.5 MG/0.5 ML SYR IV STA (09:18)
[2021-09-07] MEDS ORDERED: FUROSEMIDE 40 MG/4 ML VIAL IV ONE (09:21)
--- NOTE | 2021-09-07 12:03 | CT Scan Report ---
CT abd pelvis wo con CLINICAL HISTORY: Continued abdominal pain. Evaluate for intestinal obstruction. COMPARISON STUDY: 09/05/2021 CT DOSE: 657.57 mGy.cm TECHNIQUE: Standard CT of the Abdomen and Pelvis was performed without IV contrast. The patient did not receive oral contrast. A dose lowering technique was utilized adhering to the principles of [employer] FINDINGS: Lung base: There has been interval development of right basilar atelectasis. Is also been interval d evelopment of small right pleural effusion. Abdominal cavity: There is no evidence for abdominal mass, adenopathy or ascites. Liver: The liver is homogeneous in attenuation on these limited noncontrast images.. Spleen: The spleen is homogeneous in attenuation on these limited noncontrast images. Pancreas: The pancreas is homogeneous in attenuation on these limited noncontrast images. Gall Bladder: Surgical clips are again seen from previous cholecystectomy. Adrenal glands: The adrenal glands are normal in size and attenuation on these limited noncontrast im ages. Kidneys: There is again mild atrophy of the left kidney when compared to the right. There is no evide nce for gross renal mass, calculus or hydronephrosis bilaterally. Bowel: There is again evidence for small hiatal hernia. There is again evidence for mild fecal impact ion and fecal stasis without evidence for bowel loop dilatation or obstruction. There is no evidence for small bowel ileus or obstruction on the current study. There are no inflammatory changes present. There is no evidence for free air. There is again evidence for asymmetric mucosal thickening involving the anorectal region on the right with follow-up again recommended. Bladder: There is mild distention of the bladder with no evidence for focal bladder wall thickening, calculus or diverticulum. : There is no evidence for pelvic mass or adenopathy. There is again evidence for previous hysterec fede. Vasculature: There is no evidence for focal aneurysmal dilatation of the abdominal aorta. Osseous structures: There is no acute osseous pathology. Degenerative changes are again seen within t he spine. IMPRESSION: 1. Compared to the previous examination, there is again evidence for mild fecal impaction and fecal s tasis without evidence for bowel loop dilatation or obstruction. 2. There is no longer evidence for small bowel ileus or possible gastroenteritis. 3. There is again asymmetric mucosal thickening at the anorectal junction on the right and follow-up is again recommended. 4. Additional nonacute findings are again delineated above. ACT 112: Positive. There are findings on this exam that require communication between the performing entity and the patient following Patient Test Result Information Act ([place] Act 112) guidelines. Electronically signed by: Edwin Quintero M.D. 09/07/2021 12:01 PM
[2021-09-07] MEDS: CALCIUM CARBONATE 500 MG CHEWABLE TAB PO SCH (13:41)
--- NOTE | 2021-09-07 16:11 | Hospitalist Progress Note ---
Date of Service September 07, 2021 Assessment & Plan (1) Abdominal pain: Plan: Patient is 81-year-old female with PMH chronic atrial fibrillation on Coumadin, chronic systolic and diastolic CHF, EF 50%, nonrheumatic tricuspid valve, LBBB, pulmonary hypertension, CKD III, Vazquez's esophagus, HLD presented to ER with complaint of right upper abdominal pain x 3 weeks. Reports sharp pain with some intermittent spasm sensation to right upper abdomen. Initially started 6/10 and now feels like 9/10 on pain scale. Feels like pain started after eating popcorn. Abdominal pain worse with movement, improves with sitting and applying pressure to area. States chronic back pain. Denies nausea, vomiting or diarrhea. Reports daily BM's. History hospitalization in 06/2021 for acute on chronic CHF, anemia. Had EGD that showed hiatal hernia and no acute bleeding. Is on iron supplement. Denies fever/chills, diaphoresis, melena, hematochezia, REED, dizziness, syncope, vision changes, neck pain, CP, SOB, orthopnea, palpitations, worsening cough, sore throat, choking, otalgia, rhinorrhea, paresthesias, increasing weakness, extremity edema, rashes, urinary symptoms. Likely secondary to gastritis In ER given IV Tylenol, morphine, Zofran, 500ml NSS, senna/docusate In ER patient afebrile, P: 82, BP 139/90, 97% on room air. No leukocytosis, Hgb: 11.3, lipase WNL, LFTs WNL CT abdomen pelvis: 1. Small hiatal hernia with mucosal thickening. 2. Mild ileus versus early gastroenteritis . No bowel obstruction. 3. Mild fecal impaction without evidence for obstruction. 4. Asymmetric mucosal thickening of the anorectal junction to the right. Direct clinical correlation is necessary. Still complains to abdominal pain in the right upper quadrant without nausea and or vomiting Ultrasound of the liver has been negative and amylase has been normal Has been on PPI and will add sucralfate and Maalox as needed and a small dose of Dilaudid Full liquid diet Bowel regimen Continue oral PPI Continues to have abdominal pain-repeat CT scan of the abdomen and pelvis remained unremarkable Dilaudid has been ordered q. 4 hourly Received 40 mg of intravenous Lasix and will continue for tomorrow as well (2) Atrial fibrillation: Plan: Chronic atrial fibrillation on Coumadin INR: 3.6 Hold Coumadin tonight INR in a.m.-remains minimally elevated at 3.8 Continue verapamil Rate is controlled and INR is supratherapeutic-Coumadin is on hold (3) Chronic combined systolic and diastolic heart failure: Plan: EF 50% Appears euvolemic at this time Continue furosemide, spironolactone Hold as needed torsemide Likely has component of CHF, will check BNP and received 40 mg Lasix intravenously today We will continue 40 mg IV for tomorrow (4) Anemia: Plan: History hemoglobin of 6.8 in 06/2021. Had EGD which showed large hiatal hernia, no acute bleeding Hgb: 11.3 No reported bleeding Monitor H&H Continue iron supplement (5) CKD (chronic kidney disease), stage III: Plan: Cr: 0.8. Baseline Cr: 1.0-1.2) Monitor renal functions, avoid nephrotoxic agents when possible (6) LBBB (left bundle branch block): Plan: Chronic (7) Vazquez esophagus: Plan: Continue PPI DVT Prophylaxis On Coumadin Full Code if think will have meaningful recovery as per discussion with pt Follows with Dr Alves for routine care Admission and Anticipated Discharge Date Admission Date: September 05, 2021 Subjective 09/06/2021 The patient was seen and examined in medical telemetry unit She complains today of right upper quadrant pain without nausea and or vomiting Denies any fever and/or chills She has had bowel movement about 2 days ago 09/07/2021 The patient was seen and examined in medical telemetry unit She has been complaining of severe pain in the right upper quadrant and epigastric area which goes into the back Denies any nausea and vomiting associated with it Denies any significant shoulder shortness of Review of Systems Review of Systems: All systems reviewed and are unremarkable except as noted below Gastrointestinal: Abdominal discomfort and pain in the right upper quadrant Physical Exam Physical Exam: Sitting on a chair with minimal discomfort due to abdominal pain Constitutional: well developed, well nourished, + ill appearing and + obese Eyes: PERRL, conjunctivae normal, anicteric sclerae ENMT: external ear and nose normal, oropharynx normal Neck: trachea midline, no thyromegaly Respiratory: no respiratory distress Auscultation: + diminished lung sounds and + crackles (Minimal crackles at the bases) Cardiovascular: Rate/Rhythm: regular rate and regular rhythm; not tachycardic Heart Sounds: normal S1 and normal S2; no murmur Extremities: + edema (Trace edema bilaterally) Gastrointestinal (Abdomen): Inspection/Auscultation: + abdomen distended and normal bowel sounds Percussion/Palpation: + abdomen tender (Right upper quadrant and near to epigastrium without any rebound and/or gua) and abdomen soft Musculoskeletal: No acute arthritis in any joint Neurologic: Alert, awake and oriented x3. No focal sensory and motor deficit appreciated Lymphatic: no cervical or axillary lymphadenopathy Results & Data Results & Data ([facility]) Vital Signs (Past 12 Hours) Vital Signs Temp Pulse Pulse Resp BP Pulse Ox 09/07/21 15:31 36.9 C 82 19 113/67 97 09/07/21 12:25 36.7 C 96 H 18 102/60 90 09/07/21 07:01 36.9 C 84 20 109/53 L 91 09/07/21 06:18 70 Laboratory Results Short CBC 09/07/21 Range/Units 05:15 WBC 6.13 (4.8-10.8) K/uL Hgb 10.3 L (12.0-16.0) g/dL Hct 34.0 L (37-47) % Plt Count 242 (130-400) K/uL BMP 09/07/21 05:15 Sodium 132 L Potassium 5.4 H D Chloride 99 Carbon Dioxide 30 BUN 14 Creatinine 1.10 Glucose 114 H Calcium 10.1 Liver Function 09/07/21 Range/Units 05:15 Total Bilirubin 0.4 (0.2-1) mg/dl AST 11 L (15-37) U/L ALT 19 (12-78) U/L Alkaline Phosphatase 79 (45-117) U/L Albumin 2.8 L (3.4-5.0) gm/dl Medications Administered Current Inpatient Medications Acetaminophen (Acetaminophen 325 Mg Tab) 650 mg PO Q4H PRN PRN Reason: Pain or Fever Stop: 10/05/21 22:22 Last Admin: 09/06/21 13:59 Dose: 650 mg Documented by: Al Hydrox/Mg Hydrox/Simethicone (Aluminum/Magnesium Susp 30 Ml Udc) 30 ml PO Q6H PRN PRN Reason: Dyspepsia Stop: 10/06/21 13:19 Albuterol (Albuterol Hfa 8 Gm Inhaler) 2 puffs INH Q6 PRN PRN Reason: Shortness Of Breath Or Wheezin Stop: 10/05/21 22:22 Diclofenac Sodium (Diclofenac Sod 1% Gel 100 Gm Tube) 4 gm EXT QID PRN PRN Reason: pain Stop: 10/05/21 22:22 Docusate Sodium (Docusate Sodium 100 Mg Cap) 100 mg PO BID [facility] Stop: 10/06/21 08:59 Last Admin: 09/07/21 08:49 Dose: 100 mg Documented by: Ferrous Sulfate (Ferrous Sulfate 325 Mg Tab) 325 mg PO BIDM [facility] Stop: 10/06/21 07:59 Last Admin: 09/07/21 08:40 Dose: 325 mg Documented by: Furosemide (Furosemide 20 Mg Tab) 20 mg PO BID [facility] Stop: 10/05/21 22:22 Last Admin: 09/07/21 08:41 Dose: 20 mg Documented by: Hydromorphone HCl (Hydromorphone Inj 0.5 Mg/0.5 Ml Syr) 0.5 mg IV Q4H PRN PRN Reason: Pain Stop: 09/21/21 08:24 Last Admin: 09/07/21 14:41 Dose: 0.5 mg Documented by: Pantoprazole Sodium (Pantoprazole 40 Mg Tab) 40 mg PO BID [facility] Stop: 10/05/21 22:22 Last Admin: 09/07/21 08:41 Dose: 40 mg Documented by: Polyethylene Glycol (Polyethylene (Miralax) 17 Gm Pack) 17 gm PO DAILY PRN PRN Reason: Constipation Stop: 10/05/21 22:22 Last Admin: 09/06/21 10:13 Dose: 17 gm Documented by: Potassium Chloride (Potassium Chloride Crtab 20 Meq Tabcr) 20 meq PO DAILY [facility] Stop: 10/06/21 08:59 Last Admin: 09/07/21 08:41 Dose: 20 meq Documented by: Spironolactone (Spironolactone 25 Mg Tab) 25 mg PO DAILY [facility] Stop: 10/06/21 08:59 Last Admin: 09/07/21 08:41 Dose: 25 mg Documented by: Sucralfate (Sucralfate 1 Gm/10 Ml Udc) 1 gm PO QID [facility] Stop: 10/06/21 16:59 Last Admin: 09/07/21 13:41 Dose: 1 gm Documented by: Verapamil HCl (Verapamil Hcl 180 Mg Tabcr) 180 mg PO BID [facility] Stop: 10/05/21 22:22 Last Admin: 09/07/21 08:40 Dose: 180 mg Documented by: (1) Anemia Anemia type: unspecified type Qualified Code(s): D64.9 - Anemia, unspecified
[2021-09-08] MEDS: HYDROmorphone INJ 0.5 MG/0.5 ML SYR IV PRN ×4 (02:03→22:25)
[2021-09-08 06:37] LABS: INR 4.1 (0.9-1.1); Prothrombin Time 37.2 Seconds (9.0-12.0)
[2021-09-08 07:08] LABS: Calcium 9.8 mg/dl (8.5-10.1); Creatinine Clr Calc Pharmacy 39.8 ml/min; Est GFR (African American) 58.2 ml/min; Est GFR (Non-African American) 50.2 ml/min; Magnesium 1.7 mg/dl (1.8-2.4); Potassium 4.5 mmol/L (3.5-5.1)
[2021-09-08] MEDS: POTASSIUM CHLORIDE CRTAB 20 MEQ TABCR PO SCH (07:58)
[2021-09-08] MEDS: SPIRONOLACTONE 25 MG TAB PO SCH (07:58)
[2021-09-08] MEDS: FERROUS SULFATE 325 MG TAB PO SCH ×2 (07:58→17:09)
[2021-09-08] MEDS: FUROSEMIDE 20 MG TAB PO SCH ×2 (07:58→19:56)
[2021-09-08] MEDS: PANTOprazole 40 MG TAB PO SCH ×2 (07:58→19:56)
[2021-09-08] MEDS: VERAPAMIL HCL 180 MG TABCR PO SCH ×2 (07:58→19:55)
[2021-09-08] MEDS: SUCRALFATE 1 GM/10 ML UDC PO SCH ×4 (07:59→19:56)
[2021-09-08] MEDS: DOCUSATE SODIUM 100 MG CAP PO SCH ×2 (09:29→20:07)
[2021-09-08] MEDS ORDERED: FUROSEMIDE 40 MG/4 ML VIAL IV ONE (09:40)
--- NOTE | 2021-09-08 16:47 | Hospitalist Progress Note ---
Date of Service September 08, 2021 Assessment & Plan (1) Abdominal pain: Plan: Patient is 81-year-old female with PMH chronic atrial fibrillation on Coumadin, chronic systolic and diastolic CHF, EF 50%, nonrheumatic tricuspid valve, LBBB, pulmonary hypertension, CKD III, Vazquez's esophagus, HLD presented to ER with complaint of right upper abdominal pain x 3 weeks. Reports sharp pain with some intermittent spasm sensation to right upper abdomen. Initially started 6/10 and now feels like 9/10 on pain scale. Feels like pain started after eating popcorn. Abdominal pain worse with movement, improves with sitting and applying pressure to area. States chronic back pain. Denies nausea, vomiting or diarrhea. Reports daily BM's. History hospitalization in 06/2021 for acute on chronic CHF, anemia. Had EGD that showed hiatal hernia and no acute bleeding. Is on iron supplement. Denies fever/chills, diaphoresis, melena, hematochezia, REED, dizziness, syncope, vision changes, neck pain, CP, SOB, orthopnea, palpitations, worsening cough, sore throat, choking, otalgia, rhinorrhea, paresthesias, increasing weakness, extremity edema, rashes, urinary symptoms. Likely secondary to gastritis In ER given IV Tylenol, morphine, Zofran, 500ml NSS, senna/docusate In ER patient afebrile, P: 82, BP 139/90, 97% on room air. No leukocytosis, Hgb: 11.3, lipase WNL, LFTs WNL CT abdomen pelvis: 1. Small hiatal hernia with mucosal thickening. 2. Mild ileus versus early gastroenteritis . No bowel obstruction. 3. Mild fecal impaction without evidence for obstruction. 4. Asymmetric mucosal thickening of the anorectal junction to the right. Direct clinical correlation is necessary. Still complains to abdominal pain in the right upper quadrant without nausea and or vomiting Ultrasound of the liver has been negative and amylase has been normal Has been on PPI and will add sucralfate and Maalox as needed and a small dose of Dilaudid Full liquid diet Bowel regimen Continue oral PPI Continues to have abdominal pain-repeat CT scan of the abdomen and pelvis remained unremarkable Dilaudid has been ordered q. 4 hourly Abdominal pain continues-we will ask for GI evaluation PT and OT have been requested (2) Atrial fibrillation: Plan: Chronic atrial fibrillation on Coumadin INR: 3.6 Hold Coumadin tonight INR in a.m.-remains minimally elevated at 3.8 Continue verapamil Rate is controlled and INR is supratherapeutic-Coumadin is on hold (3) Chronic combined systolic and diastolic heart failure: Plan: EF 50% Appears euvolemic at this time Continue furosemide, spironolactone Hold as needed torsemide Likely has component of CHF, will check BNP and received 40 mg Lasix intravenously today Received 40 mg of intravenous Lasix and will continue for tomorrow as well BNP remains minimally elevated at 4751-received another dose of Lasix to 40 mg on 09/08/2021 (4) Anemia: Plan: History hemoglobin of 6.8 in 06/2021. Had EGD which showed large hiatal hernia, no acute bleeding Hgb: 11.3 No reported bleeding Monitor H&H Continue iron supplement (5) CKD (chronic kidney disease), stage III: Plan: Cr: 0.8. Baseline Cr: 1.0-1.2) Monitor renal functions, avoid nephrotoxic agents when possible (6) LBBB (left bundle branch block): Plan: Chronic (7) Vazquez esophagus: Plan: Continue PPI DVT Prophylaxis On Coumadin Full Code if think will have meaningful recovery as per discussion with pt Follows with Dr Alves for routine care Admission and Anticipated Discharge Date Admission Date: September 05, 2021 Subjective 09/06/2021 The patient was seen and examined in medical telemetry unit She complains today of right upper quadrant pain without nausea and or vomiting Denies any fever and/or chills She has had bowel movement about 2 days ago 09/07/2021 The patient was seen and examined in medical telemetry unit She has been complaining of severe pain in the right upper quadrant and epigastric area which goes into the back Denies any nausea and vomiting associated with it Denies any significant shoulder shortness of 09/08/2021 The patient was seen and examined in medical telemetry unit She still complains to have right upper quadrant pain that goes to the back Denies any nausea or vomiting associated with it Review of Systems Review of Systems: All systems reviewed and are unremarkable except as noted below Gastrointestinal: Abdominal discomfort and pain in the right upper quadrant Physical Exam Physical Exam: Sitting on a chair with minimal discomfort due to abdominal pain Constitutional: well developed, well nourished, + ill appearing and + obese Eyes: PERRL, conjunctivae normal, anicteric sclerae ENMT: external ear and nose normal, oropharynx normal Neck: trachea midline, no thyromegaly Respiratory: no respiratory distress Auscultation: + diminished lung sounds and + crackles (Minimal crackles at the bases) Cardiovascular: Rate/Rhythm: regular rate and regular rhythm; not tachycardic Heart Sounds: normal S1 and normal S2; no murmur Extremities: + edema (Trace edema bilaterally) Gastrointestinal (Abdomen): Inspection/Auscultation: + abdomen distended and normal bowel sounds Percussion/Palpation: + abdomen tender (Right upper quadrant and near to epigastrium without any rebound and/or gua) and abdomen soft Musculoskeletal: No acute arthritis in any joint Neurologic: Alert, awake and oriented x3 Lymphatic: no cervical or axillary lymphadenopathy Results & Data Results & Data ([facility]) Vital Signs (Past 12 Hours) Vital Signs Temp Pulse Pulse Resp BP Pulse Ox 09/08/21 15:56 36.6 C 84 18 106/69 94 09/08/21 08:01 36.5 C 79 18 118/51 L 96 09/08/21 06:17 86 Laboratory Results [facility] 09/08/21 05:27 Sodium 136 Potassium 4.5 D Chloride 99 Carbon Dioxide 31 BUN 12 Creatinine 1.03 Glucose 97 Calcium 9.8 Medications Administered Current Inpatient Medications Acetaminophen (Acetaminophen 325 Mg Tab) 650 mg PO Q4H PRN PRN Reason: Pain or Fever Stop: 10/05/21 22:22 Last Admin: 09/06/21 13:59 Dose: 650 mg Documented by: Al Hydrox/Mg Hydrox/Simethicone (Aluminum/Magnesium Susp 30 Ml Udc) 30 ml PO Q6H PRN PRN Reason: Dyspepsia Stop: 10/06/21 13:19 Albuterol (Albuterol Hfa 8 Gm Inhaler) 2 puffs INH Q6 PRN PRN Reason: Shortness Of Breath Or Wheezin Stop: 10/05/21 22:22 Diclofenac Sodium (Diclofenac Sod 1% Gel 100 Gm Tube) 4 gm EXT QID PRN PRN Reason: pain Stop: 10/05/21 22:22 Docusate Sodium (Docusate Sodium 100 Mg Cap) 100 mg PO BID [facility] Stop: 10/06/21 08:59 Last Admin: 09/08/21 09:29 Dose: 100 mg Documented by: Ferrous Sulfate (Ferrous Sulfate 325 Mg Tab) 325 mg PO BIDM [facility] Stop: 10/06/21 07:59 Last Admin: 09/08/21 07:58 Dose: 325 mg Documented by: Furosemide (Furosemide 20 Mg Tab) 20 mg PO BID [facility] Stop: 10/05/21 22:22 Last Admin: 09/08/21 07:58 Dose: 20 mg Documented by: Hydromorphone HCl (Hydromorphone Inj 0.5 Mg/0.5 Ml Syr) 0.5 mg IV Q4H PRN PRN Reason: Pain Stop: 09/21/21 08:24 Last Admin: 09/08/21 10:17 Dose: 0.5 mg Documented by: Pantoprazole Sodium (Pantoprazole 40 Mg Tab) 40 mg PO BID [facility] Stop: 10/05/21 22:22 Last Admin: 09/08/21 07:58 Dose: 40 mg Documented by: Polyethylene Glycol (Polyethylene (Miralax) 17 Gm Pack) 17 gm PO DAILY PRN PRN Reason: Constipation Stop: 10/05/21 22:22 Last Admin: 09/06/21 10:13 Dose: 17 gm Documented by: Potassium Chloride (Potassium Chloride Crtab 20 Meq Tabcr) 20 meq PO DAILY [facility] Stop: 10/06/21 08:59 Last Admin: 09/08/21 07:58 Dose: 20 meq Documented by: Spironolactone (Spironolactone 25 Mg Tab) 25 mg PO DAILY [facility] Stop: 10/06/21 08:59 Last Admin: 09/08/21 07:58 Dose: 25 mg Documented by: Sucralfate (Sucralfate 1 Gm/10 Ml Udc) 1 gm PO QID [facility] Stop: 10/06/21 16:59 Last Admin: 09/08/21 12:39 Dose: 1 gm Documented by: Verapamil HCl (Verapamil Hcl 180 Mg Tabcr) 180 mg PO BID [facility] Stop: 10/05/21 22:22 Last Admin: 09/08/21 07:58 Dose: 180 mg Documented by: (1) Anemia Anemia type: unspecified type Qualified Code(s): D64.9 - Anemia, unspecified
[2021-09-08] MEDS: ACETAMINOPHEN 325 MG TAB PO PRN (20:07)
[2021-09-09] MEDS: HYDROmorphone INJ 0.5 MG/0.5 ML SYR IV PRN ×3 (05:07→15:02)
[2021-09-09 05:59] LABS: BUN Creatinine Ratio 12.8 (10-20); Calcium 9.5 mg/dl (8.5-10.1); Est GFR (African American) 76.7 ml/min; Est GFR (Non-African American) 66.2 ml/min; Magnesium 1.7 mg/dl (1.8-2.4); Potassium 3.7 mmol/L (3.5-5.1)
[2021-09-09] MEDS: ACETAMINOPHEN 325 MG TAB PO PRN ×2 (07:29→20:23)
--- NOTE | 2021-09-09 08:46 | Gastrointestinal Consultation ---
Date of Consultation September 09, 2021 Assessment & Plan (1) Constipation: 81 year old w/ chronic comorbidities admitted w/ abdominal pain for at least 30 years, who notes return of pain, upper abd, constant since onset about 1-2 weeks ago, associated with constipation. Labs, imaging negative except for constipation No acute indications for EGD/Colonoscopy Recommend increase bowel regimen Miralax 1 capful twice daily Trial of low FODMAPs diet Thank you for allowing us to participate in the care of this patient. Please call with any acute changes, questions or concerns. Please see addendum below with additional recommendation from my supervising physician. (2) Acute upper abdominal pain: Supervising Physician Co-Signing Physician Notes Late entry: Patient was seen and examined on 09/09 with BLANCA Alford whose note reflects our findings and plan. Bowel regimen. abd mildly tende jeanette exam. History of Present Illness Reason for Consultation: abd pain Requesting Physician: Jr Attending Physician: Karen Norris MD History of Present Illness 81 year old female with history of atrial fibrillation on Coumadin, chronic systolic and diastolic CHF, EF 50%, nonrheumatic tricuspid valve, LBBB, pulmonary hypertension, CKD III, Vazquez's esophagus, dyslipidemia others below admitted w/ abdominal pain - GI asked to evaluate. She is a poor historian. Notes chronic abdominal pain. Suggests abdominal pain for 30-40 years. Intermittent. Cyclical. Will be feeling well for months then have onset of pain. Once it starts, constant. Mild, fullness and sharpness at the same time. No associated upper GI symptoms. Denies nausea, vomiting. No GERD. No dysphagia. Does report some constipation issues. Formed stools with straining every 1-2 days. No diarrhea. No black or bloody stools. No weight loss. No fever, chills, CP, SOB. CTAP 2020: Compared to the previous examination, there is again evidence for mild fecal impaction and fecal stasis without evidence for bowel loop dilatation or obstruction.. There is no longer evidence for small bowel ileus or possible gastroenteritis. There is again asymmetric mucosal thickening at the anorectal junction on the right and follow-up is again recommended. Additional nonacute findings are again delineated above. ABD US 2020: Negative limited abdominal ultrasound. Chest XR 2020: Slight improvement in the mild interstitial pulmonary edema and trace bilateral pleural effusions. Cardiomegaly remains unchanged. CTAP 2020: Small hiatal hernia with mucosal thickening. Mild ileus versus early gastroenteritis . No bowel obstruction.. Mild fecal impaction without evidence for obstruction.Asymmetric mucosal thickening of the anorectal junction to the right. Direct clinical correlation is necessary. Additional nonacute findings are delineated above. EGD 2020: Normal esophagus. - Large hiatal hernia. - Multiple benign appearing gastric polyps. - Normal examined duodenum. - No specimens collected. Allergies Allergy/AdvReac Type Severity Reaction Status Date / Time shellfish derived Allergy Severe Anaphylaxis Verified 09/05/21 17:14 latex Allergy Intermediate Rash Verified 09/05/21 17:14 Penicillins Allergy Intermediate Hives Verified 09/05/21 17:14 Sulfa (Sulfonamide Allergy Intermediate Hives Verified 09/05/21 17:14 Antibiotics) Home Medications Medication Instructions Recorded Confirmed Type albuterol sulfate 2.5 mg INHALATION Q4H PRN 06/26/21 09/05/21 History albuterol sulfate 90 mcg/actuation 2 puff INHALATION Q6 PRN 06/26/21 09/05/21 History aerosol inhaler calcium carbonate 600 mg(1,500 1 tab PO BID 06/26/21 09/05/21 History mg)-vitamin D3 800 unit chewable tablet (Caltrate 600 plus D) cholecalciferol (vitamin D3) 50 50 mcg PO DAILY 06/26/21 09/05/21 History mcg (2,000 unit) tablet (Vitamin D3) cyanocobalamin (vitamin B-12) 1,000 mcg PO DAILY 06/26/21 09/05/21 History 1,000 mcg tablet (Vitamin B-12) furosemide 20 mg tablet 20 mg PO BID 06/26/21 09/05/21 History omeprazole 40 mg capsule,delayed 40 mg PO BID 06/26/21 09/05/21 History release potassium chloride 20 mEq 20 meq PO DAILY 06/26/21 09/05/21 History tablet,extended release(part/cryst) spironolactone 25 mg tablet 25 mg PO DAILY 06/26/21 09/05/21 History torsemide 100 mg tablet 100 mg PO DAILY PRN 06/26/21 09/05/21 History verapamil 180 mg 24 hr 180 mg PO BID 06/26/21 09/05/21 History capsule,extended release warfarin 3 mg tablet 1.5 - 3 mg PO UD 06/26/21 09/05/21 History ferrous sulfate 325 mg (65 mg 325 mg PO BIDM #60 tab 07/01/21 09/05/21 Rx iron) tablet,delayed release acetaminophen 650 mg 650 mg PO Q12H 09/05/21 09/05/21 History tablet,extended release Patient History Medical History Anemia Atrial fibrillation Vazquez esophagus Breast cancer Chronic combined systolic and diastolic heart failure CKD (chronic kidney disease), stage III COPD (chronic obstructive pulmonary disease) LBBB (left bundle branch block) Pulmonary HTN Surgical History History of abdominal hysterectomy History of cholecystectomy History of lumbar surgery History of mastectomy Family History Father Prostate cancer Heart disease [place] age 73 Mother Heart disease Social History Smoking Status: Never smoker Second Hand Exposure: No; Hx Alcohol Use: No Hx Substance Use: No Preferred Language: Persian Communication Ability: Effective Painting Technician Required: No Beliefs That Will Affect Care: None marital status: / Current Living Situation: Alone Current Living Situation Comment: Lives with daughter How many Children do You have: 4 Other Information That Helps Us Care for You: No Feels Safe at Home: Yes Assistive Devices: None Review of Systems Review of Systems: All systems reviewed & are unremarkable except as noted in HPI & below Physical Exam Constitutional: WD/WN, vitals as above Neck: trachea midline, no thyromegaly Respiratory: normal respiratory effort, lungs clear to auscultation Gastrointestinal (Abdomen): Inspection/Auscultation: abdomen normal to inspection and normal bowel sounds; abdomen not distended Percussion/Palpation: + abdomen tender and abdomen soft; no guarding and abdomen not rigid Skin: no rashes, warm and dry Results & Data ([facility]) Vital Signs (Past 12 Hours) Vital Signs Temp Pulse Pulse Resp BP Pulse Ox 09/09/21 07:30 36.6 C 75 18 130/75 96 09/09/21 04:00 36.6 C 66 18 129/79 96 09/08/21 23:06 36.6 C 66 18 95/53 L 96 09/08/21 22:32 73 Laboratory Results 09/09/21 Range/Units 05:24 Sodium 134 L (136-145) mmol/L Potassium 3.7 D (3.5-5.1) mmol/L Chloride 97 L (98-107) mmol/L Carbon Dioxide 35 H (21-32) mmol/L Anion Gap 2.0 L (3-11) BUN 10 (7-18) mg/dl Creatinine 0.82 (0.6-1.2) mg/dl Est Cr Clr Drug Dosing 50.0 ml/min Est GFR ( Amer) 76.7 ml/min Est GFR (Non-Af Amer) 66.2 ml/min BUN/Creatinine Ratio 12.8 (10-20) Glucose 92 (70-99) mg/dl Calcium 9.5 (8.5-10.1) mg/dl Magnesium 1.7 L (1.8-2.4) mg/dl (1) Constipation Constipation type: unspecified constipation type Qualified Code(s): K59.00 - Constipation, unspecified
[2021-09-09] MEDS: POTASSIUM CHLORIDE CRTAB 20 MEQ TABCR PO SCH (09:19)
[2021-09-09] MEDS: PANTOprazole 40 MG TAB PO SCH ×2 (09:19→20:23)
[2021-09-09] MEDS: FUROSEMIDE 20 MG TAB PO SCH ×2 (09:19→20:23)
[2021-09-09] MEDS: SPIRONOLACTONE 25 MG TAB PO SCH (09:19)
[2021-09-09] MEDS: FERROUS SULFATE 325 MG TAB PO SCH ×2 (09:19→16:19)
[2021-09-09] MEDS: VERAPAMIL HCL 180 MG TABCR PO SCH ×2 (09:19→20:23)
[2021-09-09] MEDS: SUCRALFATE 1 GM/10 ML UDC PO SCH ×4 (09:19→20:23)
[2021-09-09] MEDS: DOCUSATE SODIUM 100 MG CAP PO SCH ×2 (09:23→20:23)
[2021-09-09] MEDS ORDERED: MAGNESIUM SULFATE / D5W 1 GM/100 ML BAG IV ONE (12:30)
[2021-09-09 13:00] LABS: INR 2.6 (0.9-1.1); Prothrombin Time 24.5 Seconds (9.0-12.0)
--- NOTE | 2021-09-09 23:44 | Hospitalist Progress Note ---
Date of Service September 09, 2021 Assessment & Plan (1) Abdominal pain: Plan: Patient on admission with right upper quadrant abdominal pain Repeat CT given pelvis showed no evidence for mild fecal impaction and fecal stasis without evidence for bowel loop dilatation or obstruction. There is no longer evidence for small bowel ileus or possible gastroenteritis. Abdominal ultrasound was negative Gastro on board recommended increase bowel regimen and evaluated 1 capsule twice a day No acute indications for EGD/Colonoscopy as per GI Continue full liquid diet Continue pain control Continue monitor closely (2) Atrial fibrillation: Plan: Chronic atrial fibrillation on Coumadin INR: 2.6 Will resume Coumadin today Continue monitor PT/INR (3) Chronic combined systolic and diastolic heart failure: Plan: EF 50% Appears euvolemic at this time Continue furosemide, spironolactone Hold as needed torsemide Likely has component of CHF, will check BNP and received 40 mg Lasix intravenously today Received 40 mg of intravenous Lasix and will continue for tomorrow as well BNP remains minimally elevated at 4751-received another dose of Lasix to 40 mg on 09/08/2021 (4) Anemia: Plan: History hemoglobin of 6.8 in 06/2021. Had EGD which showed large hiatal hernia, no acute bleeding Hgb: Stable No reported bleeding Monitor H&H Continue iron supplement (5) CKD (chronic kidney disease), stage III: Plan: Cr: 0.8. Baseline Cr: 1.0-1.2) Monitor renal functions, avoid nephrotoxic agents when possible (6) LBBB (left bundle branch block): Plan: Chronic (7) Vazquez esophagus: Plan: Continue PPI DVT Prophylaxis On Coumadin Full Code if think will have meaningful recovery as per discussion with pt Follows with Dr Alves for routine care Admission and Anticipated Discharge Date Admission Date: September 05, 2021 Subjective Patient was seen and examined for follow-up of abdominal pain Sitting in chair with no acute distress Patient said that continue to have severe abdominal pain She said she has not had any bowel movement in the last few days Denies any chest pain, palpitation, dizziness, shortness of breath. Review of Systems Review of Systems: All systems reviewed & are unremarkable except as noted in Subjective Physical Exam Physical Exam: General- No acute distress Head- atraumatic Eyes- PERRL, EOMI, ENT- oropharynx clear Neck- supple, no JVD Lungs- clear to auscultation Heart- regular rhythm; no murmur Abdomen- normal bowel sounds, soft, +tender Extremities- no calf tenderness Neuro- alert, oriented x 3; PERRL, EOMI; no facial palsy; no dysarthria Skin- warm & dry Results & Data Results & Data ([facility]) Vital Signs (Past 12 Hours) Vital Signs Temp Pulse Pulse Resp BP Pulse Ox 09/09/21 23:13 36.5 C 71 17 143/72 H 97 09/09/21 20:59 37.0 C 61 18 109/68 98 09/09/21 15:08 36.5 C 84 75 18 122/71 98 09/09/21 11:56 36.8 C 76 18 112/71 96 (1) Anemia Anemia type: unspecified type Qualified Code(s): D64.9 - Anemia, unspecified
[2021-09-10] MEDS ORDERED: WARFARIN SOD 2 MG TAB PO ONE ×2 (02:30→21:00)
[2021-09-10 08:05] LABS: INR 2.1 (0.9-1.1); Prothrombin Time 20.1 Seconds (9.0-12.0)
[2021-09-10 08:16] LABS: BUN Creatinine Ratio 9.9 (10-20); Calcium 9.4 mg/dl (8.5-10.1); Est GFR (African American) 84.1 ml/min; Est GFR (Non-African American) 72.5 ml/min; Magnesium 1.8 mg/dl (1.8-2.4); Potassium 3.5 mmol/L (3.5-5.1)
[2021-09-10] MEDS: POTASSIUM CHLORIDE CRTAB 20 MEQ TABCR PO SCH (08:28)
[2021-09-10] MEDS: HYDROmorphone INJ 0.5 MG/0.5 ML SYR IV PRN ×2 (08:28→23:27)
[2021-09-10] MEDS: VERAPAMIL HCL 180 MG TABCR PO SCH ×2 (08:28→19:40)
[2021-09-10] MEDS: SUCRALFATE 1 GM/10 ML UDC PO SCH ×4 (08:28→19:40)
[2021-09-10] MEDS: FUROSEMIDE 20 MG TAB PO SCH ×2 (08:29→19:40)
[2021-09-10] MEDS: PANTOprazole 40 MG TAB PO SCH ×2 (08:29→19:40)
[2021-09-10] MEDS: FERROUS SULFATE 325 MG TAB PO SCH ×2 (08:29→16:47)
[2021-09-10] MEDS: SPIRONOLACTONE 25 MG TAB PO SCH (08:29)
[2021-09-10] MEDS: DOCUSATE SODIUM 100 MG CAP PO SCH ×2 (08:37→19:40)
[2021-09-10] MEDS: POLYETHYLENE (MIRALAX) 17 GM PACK PO PRN (08:42)
--- NOTE | 2021-09-10 23:57 | Hospitalist Progress Note ---
Date of Service September 10, 2021 Assessment & Plan (1) Abdominal pain: Plan: Patient on admission with right upper quadrant abdominal pain Repeat CT given pelvis showed no evidence for mild fecal impaction and fecal stasis without evidence for bowel loop dilatation or obstruction. There is no longer evidence for small bowel ileus or possible gastroenteritis. Abdominal ultrasound was negative Gastro on board recommended increase bowel regimen and miralax 1 capsule twice a day No acute indications for EGD/Colonoscopy as per GI Continue full liquid diet Continue pain control Continue monitor closely (2) Atrial fibrillation: Plan: Chronic atrial fibrillation on Coumadin INR: 2.1 Continue Coumadin Continue monitor PT/INR (3) Chronic combined systolic and diastolic heart failure: Plan: EF 50% Appears euvolemic at this time Continue furosemide, spironolactone Hold as needed torsemide Likely has component of CHF, will check BNP and received 40 mg Lasix intravenously today Received 40 mg of intravenous Lasix and will continue for tomorrow as well BNP remains minimally elevated at 4751-received another dose of Lasix to 40 mg on 09/08/2021 (4) Anemia: Plan: History hemoglobin of 6.8 in 06/2021. Had EGD which showed large hiatal hernia, no acute bleeding Hgb: Stable No reported bleeding Monitor H&H Continue iron supplement (5) CKD (chronic kidney disease), stage III: Plan: Cr: 0.8. Baseline Cr: 1.0-1.2) Monitor renal functions, avoid nephrotoxic agents when possible (6) LBBB (left bundle branch block): Plan: Chronic (7) Vazquez esophagus: Plan: Continue PPI DVT Prophylaxis On Coumadin Full Code if think will have meaningful recovery as per discussion with pt Follows with Dr Alves for routine care Admission and Anticipated Discharge Date Admission Date: September 05, 2021 Subjective Patient was seen and examined for follow-up of abdominal pain Sitting in chair with no acute distress Patient said that she continue to have severe abdominal pain Has not had a bowel movement since the 09/06, I offered her a suppository but she refused Denies any chest pain, palpitation, dizziness, shortness of breath. Review of Systems Review of Systems: All systems reviewed & are unremarkable except as noted in Subjective Physical Exam Physical Exam: General- No acute distress Head- atraumatic Eyes- PERRL, EOMI, ENT- oropharynx clear Neck- supple, no JVD Lungs- clear to auscultation Heart- regular rhythm; no murmur Abdomen- normal bowel sounds, soft, +tender Extremities- no calf tenderness Neuro- alert, oriented x 3; PERRL, EOMI; no facial palsy; no dysarthria Skin- warm & dry Results & Data Results & Data ([facility]) Vital Signs (Past 12 Hours) Vital Signs Temp Pulse Resp BP Pulse Ox 09/10/21 23:26 36.8 C 94 H 18 129/78 95 09/10/21 19:08 36.6 C 76 96 H 112/59 L 96 09/10/21 15:03 37.0 C 58 L 18 102/62 95 (1) Anemia Anemia type: unspecified type Qualified Code(s): D64.9 - Anemia, unspecified
[2021-09-11 07:34] LABS: Prothrombin Time 19.4 Seconds (9.0-12.0)
[2021-09-11 08:09] LABS: BUN Creatinine Ratio 9.5 (10-20); Calcium 9.3 mg/dl (8.5-10.1); Creatinine Clr Calc Pharmacy 54.7 ml/min; Est GFR (African American) 85.4 ml/min; Est GFR (Non-African American) 73.7 ml/min; Potassium 3.5 mmol/L (3.5-5.1)
[2021-09-11] MEDS: SUCRALFATE 1 GM/10 ML UDC PO SCH ×3 (08:10→16:38)
[2021-09-11] MEDS: DOCUSATE SODIUM 100 MG CAP PO SCH (08:13)
[2021-09-11] MEDS: VERAPAMIL HCL 180 MG TABCR PO SCH (08:13)
[2021-09-11] MEDS: POTASSIUM CHLORIDE CRTAB 20 MEQ TABCR PO SCH (08:13)
[2021-09-11] MEDS: PANTOprazole 40 MG TAB PO SCH (08:13)
[2021-09-11] MEDS: FUROSEMIDE 20 MG TAB PO SCH (08:13)
[2021-09-11] MEDS: SPIRONOLACTONE 25 MG TAB PO SCH (08:14)
[2021-09-11] MEDS: FERROUS SULFATE 325 MG TAB PO SCH ×2 (08:14→16:37)
[2021-09-11] MEDS ORDERED: bisacodyL 5 MG TABEC PO SCH (09:00)
[2021-09-11] MEDS ORDERED: POLYETHYLENE (MIRALAX) 17 GM PACK PO SCH (09:00)
[2021-09-11] MEDS: HYDROmorphone INJ 0.5 MG/0.5 ML SYR IV PRN (11:48)
== END 2021-09-11 18:27 | disposition home health service (06) | DRG 392 ==
LOC: ED 13:02 → SUATTDRO 18:35 → 2W 18:35